=== PATIENT | female | born 1980 | race Two or more races ===

== ENCOUNTER 2020-04-28 16:19 | Emergency (ER) | payer MEDICAID, SELFPAY ==
--- NOTE | ~2020-04-28 | XR_ITS ---
EXAMINATION: XR lumbar spine 2-3V, XR cervical spine 2V, XR thoracic spine 2V CLINICAL INFORMATION: Fall. Pain. COMPARISON: Lumbar spine series 10/23/2017 TECHNIQUE: AP, lateral, swimmer's, and odontoid views of the cervical spine. AP and lateral views of the thoracic spine. AP, lateral, and coned-down L5-S1 spot lateral views of the lumbar spine. FINDINGS: The dens is intact. Lateral masses are normally positioned. Lung apices are clear. Normal prevertebral soft tissues. There is anterior disc calcification at C5-C6. No fracture seen. Normal sagittal alignment of the thoracic spine. Posterior elements are intact. Thoracic vertebral body heights are maintained. Mild anterior osteophytosis. Right upper quadrant cholecystectomy clips. 5 nonrib-bearing lumbar type vertebral bodies are seen. Mild convex left lumbar scoliosis with apex at L3. Grade 1 anterolisthesis of L4 on L5. Lower lumbar facet arthropathy. There is anterior osteophytosis L3-L4 and L4-L5. XR/XR thoracic spine 2V IMPRESSION: No acute osseous abnormality of the cervical, thoracic, or lumbar spine. Degenerative changes as described above.
--- NOTE | ~2020-04-28 | XR_ITS ---
EXAMINATION: XR lumbar spine 2-3V, XR cervical spine 2V, XR thoracic spine 2V CLINICAL INFORMATION: Fall. Pain. COMPARISON: Lumbar spine series 10/23/2017 TECHNIQUE: AP, lateral, swimmer's, and odontoid views of the cervical spine. AP and lateral views of the thoracic spine. AP, lateral, and coned-down L5-S1 spot lateral views of the lumbar spine. FINDINGS: The dens is intact. Lateral masses are normally positioned. Lung apices are clear. Normal prevertebral soft tissues. There is anterior disc calcification at C5-C6. No fracture seen. Normal sagittal alignment of the thoracic spine. Posterior elements are intact. Thoracic vertebral body heights are maintained. Mild anterior osteophytosis. Right upper quadrant cholecystectomy clips. 5 nonrib-bearing lumbar type vertebral bodies are seen. Mild convex left lumbar scoliosis with apex at L3. Grade 1 anterolisthesis of L4 on L5. Lower lumbar facet arthropathy. There is anterior osteophytosis L3-L4 and L4-L5. XR/XR cervical spine 2V IMPRESSION: No acute osseous abnormality of the cervical, thoracic, or lumbar spine. Degenerative changes as described above.
--- NOTE | ~2020-04-28 | XR_ITS ---
EXAMINATION: XR lumbar spine 2-3V, XR cervical spine 2V, XR thoracic spine 2V CLINICAL INFORMATION: Fall. Pain. COMPARISON: Lumbar spine series 10/23/2017 TECHNIQUE: AP, lateral, swimmer's, and odontoid views of the cervical spine. AP and lateral views of the thoracic spine. AP, lateral, and coned-down L5-S1 spot lateral views of the lumbar spine. FINDINGS: The dens is intact. Lateral masses are normally positioned. Lung apices are clear. Normal prevertebral soft tissues. There is anterior disc calcification at C5-C6. No fracture seen. Normal sagittal alignment of the thoracic spine. Posterior elements are intact. Thoracic vertebral body heights are maintained. Mild anterior osteophytosis. Right upper quadrant cholecystectomy clips. 5 nonrib-bearing lumbar type vertebral bodies are seen. Mild convex left lumbar scoliosis with apex at L3. Grade 1 anterolisthesis of L4 on L5. Lower lumbar facet arthropathy. There is anterior osteophytosis L3-L4 and L4-L5. XR/XR lumbar spine 2-3V IMPRESSION: No acute osseous abnormality of the cervical, thoracic, or lumbar spine. Degenerative changes as described above.
[2020-04-28 16:40] VITALS: BP 118/56; PULSE 94; RESP 16; TEMP 36.2; O2SAT 98; BMI 40.7
--- NOTE | 2020-04-28 20:45 | ED.FALL ---
HPI - Fall General Chief Complaint: Fall Stated Complaint: Fall Time Seen by Provider: 04/28/20 19:24 History of Present Illness HPI Narrative: Patient complains of lower back pain as well as upper back pain after a fall down a flight of stairs yesterday shows walking down the stairs slipped backwards and slid down the stairs on her buttocks and back. There is no headache no neck pain no loss of consciousness no numbness no weakness no tingling no changes to bowel or bladder no incontinence Related Data Previous Rx's Medication Instructions Recorded cyclobenzaprine 5 mg PO TID PRN #10 tab 04/28/20 oxycodone 5 mg PO Q6H PRN #14 cap 04/28/20 Allergies Allergy/AdvReac Type Severity Reaction Status Date / Time acetaminophen [From TYLENOL] Allergy Unknown HIVES Unverified 12/04/19 18:16 ketorolac [From TORADOL] Allergy Unknown SWELLING Unverified 12/04/19 18:16 Review of Systems Review of Systems: Positive for back pain Negatives are no dizziness no weakness no confusion no fever no chills no headache no loss of consciousness no vision changes no neck pain no numbness no weakness no paresthesias no incontinence no dysuria no changes to bowel or bladder no chest pain no abdominal pain no shortness of breath no nausea no vomiting Yes all other systems are reviewed and are negative [facility] Past Medical History Attestation statement: The following information was validated with the patient. Source: nursing notes reviewed Medical History (Updated 04/29/20 @ 00:01 by Marlo Matthew) Right bundle branch block Social History Social History Alcohol intake: never Smoked in Last 30 Days: No Use of substances other than those prescribed or required for medical reasons: No Advance Directives: No Advance Directives Information Provided: No Physical Exam Vital Signs: Vital Signs: Last Vital Signs Temp 97.1 F 04/28/20 16:40 Pulse 94 04/28/20 16:40 Resp 16 04/28/20 16:40 BP 118/56 L 04/28/20 16:40 Pulse Ox 98 04/28/20 16:40 Body Mass Index 40.7 General appearance no acute distress, cooperative and O x3 The neck is supple, there is bilateral paraspinal soft tissue tenderness and bilateral trapezius tenderness but no midline tenderness no deformities The head is normocephalic atraumatic The chest there is no chest wall or rib tenderness, breath sounds are clear symmetrical and equal The heart no murmur Abdomen soft nontender The back there was diffuse lower lumbar tenderness including the midline there was also paraspinal soft tissue tenderness in the thoracic area the skin was normal without evidence of bruising, no abrasion or laceration, no CVA tenderness Extremities is full range of motion x4 without tenderness swelling or deformity Skin no rash Neuro motor is 5/5 x4, patient can walk on toes walk on heels and sensation is intact and symmetrical Course Course Course Narrative: S is of lumbar thoracic spine were negative as was cervical spine x-ray, patient's exam did not show any bony point tenderness Patient is ambulatory and is treated with analgesic and muscle relaxer and discharged home Discharge Plan Discharge Clinical Impression: Back pain Patient Disposition: Home, Self-Care Additional Instructions: X-rays of back and neck were negative so no sign of broken bone now Follow with primary doctor for physical therapy if needed Return any concerns Prescriptions: New oxycodone 5 mg capsule 5 mg PO Q6H PRN (Reason: pain) Qty: 14 RF: 0 cyclobenzaprine 5 mg tablet 5 mg PO TID PRN (Reason: muscle spasm) Qty: 10 RF: 0 Stand Alone Forms: Work/School Release Interventions: ED Discharge Assessment Last Done: 04/28/20 21:13 Discharge Date/Time: 04/28/20 21:15
== END 2020-04-28 21:15 | disposition home or self-care (01) ==
PROVIDERS: Emergency Provider Emergency Medicine; PCP Student in an Organized Health Care Education/Training Program
DX: M54.5 Low back pain (principal); M54.6 Pain in thoracic spine
CPT/HCPCS: 72040; 72070; 72100; 99283; 99284

== ENCOUNTER → 2021-09-28 10:08 | Outpatient (BNVA) | payer MEDICAID, SELFPAY | PROVIDERS: PCP Student in an Organized Health Care Education/Training Program; Visit Provider Orthopaedic Surgery | DX: R20.0 Anesthesia of skin (principal); R20.2 Paresthesia of skin; R25.2 Cramp and spasm; M79.644 Pain in right finger(s) | CPT/HCPCS: 99202 ==

== ENCOUNTER 2021-12-22 09:52 | Outpatient (REF) | payer MEDICAID, SELFPAY ==
--- NOTE | 2021-12-22 10:30 | EMG_ITS ---
Right median and ulnar motor and sensory studies were performed. Right radial sensory study was performed and paraspinal muscles were tested. IMPRESSION: This is an unremarkable study with no evidence of median or ulnar neuropathy or radiculopathy. MD ADAM Garnica/AVEL / [phone]
== END 2021-12-22 09:53 | disposition home or self-care (01) ==
LOC: HO.NEURO 09:52
PROVIDERS: PCP Family Medicine; Visit Provider Orthopaedic Surgery
DX: R20.0 Anesthesia of skin (principal); M79.641 Pain in right hand; M79.642 Pain in left hand
CPT/HCPCS: 95886; 95909

== ENCOUNTER 2022-01-02 16:12 | Outpatient (REF) | payer MEDICAID, SELFPAY ==
[2022-01-02 17:16] LABS: Lipase 17 U/L (8-78)
[2022-01-02 17:36] LABS: TSH reflex Free T4 1.41 uIU/mL (0.32-4.0)
[2022-01-02 17:57] LABS: Folate 6.5 ng/mL (> or = 4.0); Vitamin B12 < 146 pg/mL (200-900)
[2022-01-04 11:47] LABS: Transglutaminase Ab IgG <1.0 U/mL; Transglutaminase IgA <1.0 U/mL
[2022-01-09 16:07] LABS: Vitamin D 25-OH, D2 11 ng/mL; Vitamin D 25-OH, D3 7 ng/mL; Vitamin D 25-OH, Total 18 ng/mL (30-100)
== END 2022-01-02 16:13 | disposition home or self-care (01) ==
LOC: HO.LAB 16:12
PROVIDERS: PCP Family Medicine; Visit Provider Nurse Practitioner Family
DX: R10.9 Unspecified abdominal pain (principal); R19.7 Diarrhea, unspecified; K59.00 Constipation, unspecified; E55.9 Vitamin D deficiency, unspecified
CPT/HCPCS: 36415; 82306; 82607; 82746; 83690; 84443; 86364; 99202

== ENCOUNTER 2022-01-03 12:43 | Outpatient (REF) | payer MEDICAID, SELFPAY ==
[2022-01-12 23:03] LABS: Pancreatic Elastase-1 171 mcg/g
== END 2022-01-03 12:44 | disposition home or self-care (01) ==
LOC: HO.LNP 12:43
PROVIDERS: Visit Provider Nurse Practitioner Family
DX: R10.9 Unspecified abdominal pain (principal); K21.9 Gastro-esophageal reflux disease without esophagitis
CPT/HCPCS: 82656; 87338

== ENCOUNTER → 2022-02-06 13:26 | Outpatient (BNVA) | payer MEDICAID, SELFPAY | PROVIDERS: PCP Family Medicine; Visit Provider Nurse Practitioner Family | DX: K86.89 Other specified diseases of pancreas (principal); R14.0 Abdominal distension (gaseous); K21.9 Gastro-esophageal reflux disease without esophagitis; K58.1 Irritable bowel syndrome with constipation | CPT/HCPCS: 99212 ==

== ENCOUNTER 2022-09-06 09:55 | Outpatient (REF) | payer MEDICAID, SELFPAY ==
--- NOTE | ~2022-09-06 | MM_ITS ---
EXAMINATION: MM SCREENING DIGITAL BREAST TOMOSYNTHESIS, BILATERAL CLINICAL INFORMATION: Screening. Asymptomatic. Age 41. The lifetime risk of breast cancer based on the Tyrer-Cuzick Model is 9%. COMPARISON: None. TECHNIQUE: Digital breast tomosynthesis is performed in both the craniocaudal and mediolateral oblique views along with computer-aided detection (CAD). Synthesized 2D images are generated from the tomosynthesis. FINDINGS: There are scattered areas of fibroglandular density (ACR BI-RADS breast composition Category b). There are no significant masses, abnormal calcifications, or other abnormalities. No architectural abnormality. There are scattered incidental benign small round and predominantly dermal calcifications. The axilla and skin contours are unremarkable. MM/MM tomosynthesis screening BI IMPRESSION: No mammographic evidence of malignancy. ASSESSMENT: BI-RADS 2: Benign RECOMMENDATION: Routine annual mammography screening. This patient's information was entered into a reminder system with a target due date for their next mammogram.
== END 2022-09-06 09:56 | disposition home or self-care (01) ==
LOC: HO.MAMMO 09:55
PROVIDERS: Visit Provider Family Medicine
DX: Z12.31 Encounter for screening mammogram for malignant neoplasm of breast (principal)
CPT/HCPCS: 77063; 77067

== ENCOUNTER 2022-10-30 10:00 | Outpatient (REF) | payer MEDICAID, SELFPAY ==
[2022-10-30 14:27] LABS: MANUAL DIFF FLAG NO
[2022-10-30 14:32] LABS: Basophils Percent Auto 0.5 % (0-2); Eosinophils Absolute Auto 0.1 X10*3/uL (0.0-0.4); Eosinophils Percent Auto 1.7 % (0-4); Hematocrit 35.1 % (37.0-47.0); Hemoglobin 11.2 g/dl (12.0-16.0); Imm Gran Abs Auto 0.03 X10*3/uL (0.00-0.03); Imm Gran Pct Auto 0.4 % (0.0-0.4); Lymphocytes Absolute Auto 1.8 X10*3/uL (1.2-4.9); Lymphocytes Percent Auto 22.2 % (20-40); Mean Corpuscular HGB Conc 31.9 g/dl (31.0-35.0); Mean Corpuscular Hemoglobin 29.7 pg (27.0-33.0); Mean Corpuscular Volume 93.1 fL (80.0-98.0); Mean Platelet Volume 10.6 fL (9.4-12.3); Monocytes Absolute Auto 0.5 X10*3/uL (0.1-1.2); Monocytes Percent Auto 5.5 % (2-11); Neutrophils Absolute Auto 5.7 x10*3/uL (2.0-8.3); Neutrophils Percent Auto 69.7 % (45-73); Platelet Count 279 X10*3/uL (160-400); Red Blood Count 3.77 X10*6/uL (4.20-5.50); Red Cell Distribution Width 14.3 % (11.0-16.0); White Blood Count 8.2 X10*3/uL (4.8-10.8)
[2022-10-30 19:01] LABS: CT PCR NOT DETECTED (Not Detect.); NG PCR NOT DETECTED (Not Detect.)
[2022-10-31 01:56] LABS: TSH reflex Free T4 1.69 uIU/mL (0.32-4.0)
== END 2022-10-30 10:01 | disposition home or self-care (01) ==
LOC: HO.CHCLDS 10:00
PROVIDERS: Visit Provider Family Medicine
DX: N93.9 Abnormal uterine and vaginal bleeding, unspecified (principal)
CPT/HCPCS: 0353U; 84443; 85025

== ENCOUNTER 2022-11-02 09:57 | Outpatient (REF) | payer MEDICAID, SELFPAY ==
[2022-11-02 16:17] LABS: CT PCR NOT DETECTED (Not Detect.); NG PCR NOT DETECTED (Not Detect.)
[2022-11-03 15:16] LABS: BV Int Neg Control Negative (Negative); BV Int Pos Control Positive (Positive)
[2022-11-06 20:34] LABS: HPV mRNA E6/E7 rflx Not Detected (Not Detected)
== END 2022-11-02 09:58 | disposition home or self-care (01) ==
LOC: HO.LNP 09:57
PROVIDERS: PCP Family Medicine; Visit Provider Advanced Practice Midwife
DX: N92.0 Excessive and frequent menstruation with regular cycle (principal); N93.9 Abnormal uterine and vaginal bleeding, unspecified; Z12.4 Encounter for screening for malignant neoplasm of cervix; Z11.3 Encounter for screening for infections with a predominantly sexual mode of transmission; Z12.39 Encounter for other screening for malignant neoplasm of breast; Z98.891 History of uterine scar from previous surgery; Z01.419 Encounter for gynecological examination (general) (routine) without abnormal findings; Z32.02 Encounter for pregnancy test, result negative
CPT/HCPCS: 0353U; 58100; 87480; 87510; 87624; 87660; 88142; 88305

== ENCOUNTER 2022-11-02 09:57 | Outpatient (AMB) | payer MEDICAID, SELFPAY ==
[2022-11-02 09:58] VITALS: BP 128/84; BMI 44.5
--- NOTE | 2022-11-02 09:58 | MHC.OFFVIS ---
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 Intake Note: Pt c/o: states started menses 2 weeks ago and has been bleeding very heavy since she called her PCP and medroxyprogestrone prescribed which she started 2days ago Allergies acetaminophen [From TYLENOL] Allergy (Unknown, Verified 11/02/22 09:59) HIVES ketorolac [From TORADOL] Allergy (Unknown, Verified 11/02/22 09:59) SWELLING Medication List - Last Reviewed 11/02/22 by Leidy Rowan, DAPHNIE cholecalciferol (vitamin D3) 50 mcg PO DAILY cyanocobalamin (vitamin B-12) 1,000 mcg PO DAILY cyclobenzaprine 5 mg PO TID PRN famotidine 40 mg PO BEDTIME bevehf-ggqeqmdu-[id number] 6,000-19,000 -30,000 unit (Creon) 1 cap PO .qid ac medroxyprogesterone 20 mg PO TID methylcellulose (laxative) (Citrucel) 500 mg PO DAILY sennosides (Natural Senna Laxative) 17.2 mg (2 x 8.6 mg) PO BEDTIME Is last menstrual period known: Yes (2 weeks with heavy bleeding ) Last menstrual period: 10/19/22 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 She was referred in June for a ob gyn physician assistant annual exam she says she always has had irregular periods all her life since she was 10 years old she normally gets 1 fairly regular though the most she would might be is a couple of weeks late but this time she was 2 months late and so when she reached that 0.2 weeks ago she thought that was connected to being on a new diet medication that her doctor had given her that she been taking for a couple of months so she stopped the medication could she thought that was related. She wanted to try to lose weight naturally before she consider surgery. She had her tubes tied years ago in [place] after the of her 2nd child. She also has not had sex with her partner for about a year or so. She also has a history of right bundle bad branch block and she was on medication for it when she was younger but it made her heart race too much shows she stopped it. She has not seen anybody for that in a long time. She moved from [place] 8 years ago she also has seen other specialists for other health issues. She does not know when she last had a Pap smear and at 1st she said maybe a year ago but she was not sure and she could not tell me where. She said she went to her doctor 3 days ago and her doctor had her do blood tests and gave her medication to stop with the bleeding and it is working she started it yesterday its medroxyprogesterone 20 mg tablets that the prescription says to take 3 times a day for 7 days. Her H&H is 11 and 33. She has not had an ultrasound yet. She had her mammogram done 4 months ago. [facility] Medical History (Updated 11/02/22 @ 10:51 by Maricarmen Muro CNM) Pancreatic insufficiency Right bundle branch block Surgical History (Updated 11/02/22 @ 10:10 by Leidy Rowan [facility]) History of section History of cholecystectomy Social History Household Members: Family Alcohol intake: never Patient Tobacco Use Status: Never used Tobacco Tobacco use type: Cigarette e-Cigarette/Vaping Use: Former Use Female Reproductive History Menstrual Date of last menstrual period: 10/19/22 Total pregnancies: 2 Number of Living Children: 2 Date of last pap smear: 10/24/16 ([facility]) History of abnormal pap smear: No Physical Exam Const General: healthy appearing, comfortable, no acute distress, well developed and alert Nutritional Appearance: average body habitus and obese Orientation/consciousness: patient oriented x3 Limitations: no limitations HEENT Head: Yes normocephalic Neck Neck: Yes normal visual inspection Chest Chest palpation & inspection: normal inspection of the chest Breast/axilla inspection: normal inspection of the breasts and normal inspection of the axillae Breast/axilla palpation: normal palpation of the breasts and normal palpation of the axillae Resp Effort & Inspection: normal respiratory effort GI Inspection: Yes normal to inspection, No Abdominal wall edema and No distended Palpation (GI): Soft to palpation and nontender Other: Bimanual done 1st to aid in placement of speculum. Bimanual done using water for lubrication. Cervix nulliparous nontender uterus does feel enlarged. See procedure for detail of endometrial biopsy Pap smear cultures were done as well as the endometrial biopsy adequate sampling appears to have been received using Pipelle. Uterus sounded to 7.5 cm, General: Yes bladder normal to palpation External Female Exam: normal external appearance and normal appearance of the urethra Speculum Exam - Vagina: normal appearance of the vagina, normal palpation and normal vaginal discharge Speculum Exam - Cervix: normal appearance of the cervix, normal palpation and nontender Bimanual exam- vagina & uterus: normal bimanual exam, normal palpation, uterine size normal, bladder normal to palpation, consistency normal, normal palpation, uterine mobility normal, uterine shape normal, No Cervical tenderness present, non-tender and no cervical motion tenderness Bimanual Exam- Adnexa, other: normal adnexae, no masses, normal and No adnexal tenderness Neuro General: patient oriented x3 Office Procedures Endometrial Biopsy Details: Patient is here for an endometrial biopsy. I explained the procedure and what the goal of the obtaining the sample is, and why we need need to do it today. Patient signed consent form, and appropriate testing was done beforehand. test is negative Patient was placed in recumbent position. Speculum was placed to visualize cervix the cervix was cleansed with Betadine. A tenaculum was gently placed to straighten the axis. The uterus was sounded to 7.5 cm. The endometrial biopsy Pipelle was inserted gently, and withdrawn to obtain sampling of the endometrial tissue for 2 passes. The tenaculum was removed and the cervix was swabbed gently as any bleeding subsided. the patient rested for a while as she felt a little bit dizzy and had a headache briefly and then sat up, after removal of the speculum. She is to return for discussion of the results and review of any other testing. [id number] Biopsy Results Reviewed Results Reviewed: Name: Cristiane Silva Age/Sex: 42/F : 1980 Unit#: [id number] Attend Dr: Susi Bolton MD Re10/30/22 Status: DEP REF Location: [facility] Disch: SPEC : [id number] BRITTANEY: 10/30/22-1004 STATUS: COMP REQ : [id number] RECD: 10/30/22-[address]: Susi Bolton MD COMP: 10/30/22 ENTERED: 10/30/[address] [facility] [address]: ORDERED: CBC Auto Diff Test Result Flag Reference Site WBC 8.2 4.8-10.8 X10*3/uL RBC 3.77 L 4.20-5.50 X10*6/uL HGB 11.2 L 12.0-16.0 g/dl HCT 35.1 L 37.0-47.0 % MCV 93.1 80.0-98.0 fL MCH 29.7 27.0-33.0 pg MCHC 31.9 31.0-35.0 g/dl RDW 14.3 11.0-16.0 % PLT 279 160-400 X10*3/uL MPV 10.6 9.4-12.3 fL Neut Pct Auto 69.7 45-73 % ImGran Pct Auto 0.4 0.0-0.4 % Lymp Pct Auto 22.2 20-40 % Bourbon Pct Auto 5.5 2-11 % Eos Pct Auto 1.7 0-4 % Baso Pct Auto 0.5 0-2 % NRBC Pct Auto 0.0 0.0-0.2 /100WBC ANC Neut Abs # 5.7 2.0-8.3 x10*3/uL ImGran Abs Auto 0.03 0.00-0.03 X10*3/uL Lymph Abs Auto 1.8 1.2-4.9 X10*3/uL Bourbon Abs Auto 0.5 0.1-1.2 X10*3/uL Eos Abs Auto 0.1 0.0-0.4 X10*3/uL Baso Abs Auto 0.0 0.0-0.2 X10*3/uL NRBC Abs Auto 0.000 0.0-0.012 X10*3/uL Name: Cristiane Silva Age/Sex: 42/F : 1980 Unit#: [id number] Attend Dr: Susi Bolton MD Re10/30/22 Status: DEP REF Location: [facility] Disch: SPEC : [id number] BRITTANEY: 10/30/22 STATUS: COMP REQ : [id number] RECD: 10/30/22-[address]: Susi Bolton MD COMP: 10/31/22-0156 ENTERED: 10/30/22-[address] [facility] [address]: ORDERED: TSH Rflx Test Result Flag Reference Site TSH 1.69 0.32-4.0 uIU/mL atient: Cristiane Silva MR#: [id number] : 1980 Acct:[id number] Age/Sex: 41 / F ADM Date: 09/06/22 Loc: HO.MAMMO Attending Dr: Susi Bolton MD Ordering Physician: Susi Bolton MD Results: 2Benign Findings Date of Service: 09/06/22 Follow Up: 1 Year From Original Mammogram Procedure(s): MM tomosynthesis screening BI Accession Number(s): [id number] cc: Susi Bolton MD~ EXAMINATION: MM SCREENING DIGITAL BREAST TOMOSYNTHESIS, BILATERAL CLINICAL INFORMATION:? Screening. Asymptomatic. Age 41. The lifetime risk of breast cancer based on the Tyrer-Cuzick Model is 9%.? COMPARISON: None. TECHNIQUE: Digital breast tomosynthesis is performed in both the craniocaudal and mediolateral oblique views along with computer-aided detection (CAD). Synthesized 2D images are generated from the tomosynthesis. FINDINGS: There are scattered areas of fibroglandular density (ACR BI-RADS breast composition Category b). There are no significant masses, abnormal calcifications, or other abnormalities. ? No architectural abnormality. There are scattered incidental benign small round and predominantly dermal calcifications. The axilla and skin contours are unremarkable.? MM/MM tomosynthesis screening BI IMPRESSION: No mammographic evidence of malignancy. ? ASSESSMENT:? BI-RADS 2: Benign ? RECOMMENDATION: Routine annual mammography screening. ? This patient's information was entered into a reminder system with a target due date for their next mammogram. Assessment & Plan Assessment & Plan (1) Abnormal uterine bleeding (AUB): Code(s): N93.9 - Abnormal uterine and vaginal bleeding, unspecified (2) Cervical cancer screening: Code(s): Z12.4 - Encounter for screening for malignant neoplasm of cervix (3) History of section: Comment: x2 Code(s): Z98.891 - History of uterine scar from previous surgery (4) Screen for sexually transmitted diseases: Code(s): Z11.3 - Encounter for screening for infections with a predominantly sexual mode of transmission (5) Breast cancer screening: Code(s): Z12.39 - Encounter for other screening for malignant neoplasm of breast (6) Menorrhagia: Comment: Menses 2 months late started 8 3 treated at home [facility] with medroxyprogesterone 20 mg t.i.d. x7 days will lower to 10 mg q.day and workup and Rx probably with Mirena. Code(s): N92.0 - Excessive and frequent menstruation with regular cycle Plan Discussed with the patient her history of abnormal irregular periods throughout her life though she says this is the longest she had not gotten a period and the heaviest she bled. Discussed that at least she is not anemic at this point but it is important to get her bleeding pattern under control so that she does not hemorrhage and become anemic. Discussed the important need for evaluation of the lining of her uterus to be sure that she does not have any abnormal or cancerous cells growing and she needs a pelvic ultrasound to evaluate for fibroids or ovarian cysts or other pathology or thickened endometrial lining. I did review her medication dose with Dr. Reeves as it was a higher dose than I have seen used of medroxyprogesterone and the suggestion was to lower the dose from 20 mg t.i.d. x7 days which is essence is 60 mg a day down to 10 mg a day and continue it for 30 days while awaiting the full workup. She already has had a CBC and a TSH I am ordering a pelvic ultrasound and we pursed did proceed with the endometrial biopsy today patient did find it the procedure painful she has had 2 children by primary and then repeat ;,( both children were breech.) Discussed in quite deep detail the challenges of her long history of irregular bleeding, late periods and this result in bleeding and the the many things needed to make sure that we address the bleeding as well as investigate whether not she has any abnormalities ultrasound is being ordered medication has been lowered endometrial biopsy has been done after discussion of the risks and also discussed the likely use of a Mirena IU S to help control the bleeding over time. We will see her in 1 week to review the results if it is possible to have her ultrasound within that week that would be great but I do not want her to wait for the results of the endometrial biopsy the plan is to place a Mirena. Orders: Orders Bacterial Vaginosis Panel Today Z01.419 - Encounter for gynecological examination (general) (routine) without abnormal findings CT NG by PCR Today Z01.419 - Encounter for gynecological examination (general) (routine) without abnormal findings US pelvic and transvaginal Today N92.0 - Excessive and frequent menstruation with regular cycle, N93.9 - Abnormal uterine and vaginal bleeding, unspecified AMB HCG Urine Test Today Z32.02 - Encounter for test, result negative Pap Smear Today Z11.3 - Encounter for screening for infections with a predominantly sexual mode of transmission Surgical Today N92.0 - Excessive and frequent menstruation with regular cycle AMB Endometrial Biopsy Today N92.0 - Excessive and frequent menstruation with regular cycle, N93.9 - Abnormal uterine and vaginal bleeding, unspecified, Z11.3 - Encounter for screening for infections with a predominantly sexual mode of transmission, Z12.39 - Encounter for other screening for malignant neoplasm of breast, Z12.4 - Encounter for screening for malignant neoplasm of cervix, Z98.891 - History of uterine scar from previous surgery Medications: New medroxyprogesterone (Provera) Stop taking 20 mg t.i.d.; and start taking 10 mg once a day for 30 days. 10 mg PO DAILY 30 tabs 0RF Coding Level of Care Code New Pt Prev Care 40-64y(33028) Diagnoses Abnormal uterine bleeding (AUB) N93.9 Cervical cancer screening Z12.4 History of section Z98.891 Screen for sexually transmitted diseases Z11.3 Breast cancer screening Z12.39 Menorrhagia N92.0 CPT Codes Endometrial Biopsy - CPT: 75755-[id number] Biopsy ([id number])
== END 2022-11-02 11:38 | disposition home or self-care (01) ==
LOC: HO.HWS 09:57
PROVIDERS: PCP Family Medicine; Visit Provider Advanced Practice Midwife
DX: N93.9 Abnormal uterine and vaginal bleeding, unspecified (principal)
CPT/HCPCS: 58100

== ENCOUNTER 2022-11-09 11:03 | Outpatient (REF) | payer MEDICAID, SELFPAY ==
--- NOTE | ~2022-11-09 | US_ITS ---
EXAMINATION: US PELVIS CLINICAL INFORMATION: Excessive and frequent menstruation with irregular cycle. Heavy bleeding for last 2-3 weeks. COMPARISON: None available. TECHNIQUE: Ultrasound of the pelvis is performed using both transabdominal and transvaginal transducers along with Doppler. Transvaginal imaging is performed due to inadequate visualization transabdominally. FINDINGS: Uterus: The uterus is anteverted, anteflexed and measures 9.9 x 4.7 x 4.7 cm The double wall endometrial thickness is 1.8 cm. The uterus is smooth in contour and has normal myometrial echogenicity. No visible fibroid. There are several nabothian cysts in the cervix Adnexa: Both ovaries are visualized. There is normal color flow to the adnexa. There is no ovarian torsion. There is no pelvic ascites or fluid collection. Right ovary measures 2.5 x 1.7 x 1.7 cm and volume 3.8 mL. The ovary appears unremarkable. Left ovary measures 3.0 x 2.0 1.9 cm and volume 6.0 mL the left ovary appears unremarkable There is small amount of free fluid in the cul-de-sac. US/US pelvic and transvaginal IMPRESSION: 1. Small nabothian cysts in the cervix. 2. The uterus and ovaries are unremarkable. 3. Small amount of free fluid in the cul-de-sac.
== END 2022-11-09 11:04 | disposition home or self-care (01) ==
LOC: HO.US 11:03
PROVIDERS: Absent Provider Family Medicine; PCP Family Medicine; Visit Provider Advanced Practice Midwife
DX: N93.9 Abnormal uterine and vaginal bleeding, unspecified (principal); N92.0 Excessive and frequent menstruation with regular cycle
CPT/HCPCS: 76830; 76856

== ENCOUNTER 2022-11-22 09:59 | Outpatient (AMB) | payer MEDICAID, SELFPAY ==
--- NOTE | 2022-11-22 10:01 | A.OFFVIS_ITS ---
Intake Vital Signs 11/22/22 10:02 Height 5 ft 3 in Weight 250 lb BMI 44.3 BP 120/84 Intake Visit Reasons: Ultrasound follow up/EMB results Allergies acetaminophen [From TYLENOL] Allergy (Unknown, Verified 11/22/22 10:02) HIVES ketorolac [From TORADOL] Allergy (Unknown, Verified 11/22/22 10:02) SWELLING Medication List - Last Reconciled 11/22/22 by Maricarmen Muro CNM cholecalciferol (vitamin D3) 50 mcg PO DAILY cyanocobalamin (vitamin B-12) 1,000 mcg PO DAILY cyclobenzaprine 5 mg PO TID PRN famotidine 40 mg PO BEDTIME khfkzj-cjxbpjqj-[id number] 6,000-19,000 -30,000 unit (Creon) 1 cap PO .qid ac medroxyprogesterone (Provera) 10 mg PO DAILY methylcellulose (laxative) (Citrucel) 500 mg PO DAILY sennosides (Natural Senna Laxative) 17.2 mg (2 x 8.6 mg) PO BEDTIME Is last menstrual period known: Yes Last menstrual period: 10/19/22 HPI Ultrasound follow up/EMB results HPI Details Patient is here to discuss her endometrial biopsy and ultrasound results. Patient was referred here from the [facility] for dysfunctional uterine bleeding that started October 19 she was given 20 mg of Provera to take 3 times a day and we lowered the dose to 10 mg q.day the day I did the endometrial biopsy. I am reviewing her history of bleeding. She says she has still been bleeding on and off but mostly it is when she sits on the toilet to pee or poop and pushes down and she feels a whole lot of blood coming out she has a pad on now but she says it is dry because she just changed it before she left the house she has been here for least 45 minutes. Her CBC was within normal limits as was her TSH. Her endometrial biopsy results revealed no atypia or malignancy. Her Pap smear was completely negative and normal as well. Her U ultrasound was normal as well. Patient tells me she wants to have some sort of surgery that would fix her problem and she is not interested in a Mirena that I have reviewed with her and I reviewed again with her today. Additionally I discussed the option of taking cycly Provera every month for 10 days, but she is not interested in that either She also brought up a different problem in that when she wipes or cleaning herself either in the shower or on the toilet and she wipes hard coming up past her urethra and clitoris she feels an electric seeing kind of uncomfortable feeling she described these anatomically in describing what she was doing cleaning herself. It appears that she may be in a vertically compressing on these delicate tissue and she says that sometimes she even feels it when she is driving and she has to tilt herself in a certain direction to avoid pressure on that area. I did discuss with her the challenges of changing anatomy from the challenges of excessive adipose tissue changing anatomical relationships in the body and altering sensations and discussed the challenge and benefits of weight loss and also Kegel exercises to help improve pelvic muscles tone and structure and anatomical relationships this is a separate issue but I did give her instructions on Kegel's as well. The patient to decided that she does not want to move forth with the plan as of yet but she wants to discuss options further because she is interested in a surgical fix. I did discuss with her that I believed a medication that could help her would be the use of the levonorgestrel administered either via the Mirena IU S or cyclic Provera as the secondary option. She is not interested going forth yet her next visit is going to be then with Dr. Reeves to discuss these options further I told her I would be happy to insert Mirena if that is the choice. [facility] Medical History (Updated 11/21/22 @ 11:26 by Maricarmen Muro CNM) Pancreatic insufficiency Right bundle branch block Surgical History History of section History of cholecystectomy Social History Household Members: Family Alcohol intake: never Patient Tobacco Use Status: Never used Tobacco Tobacco use type: Cigarette e-Cigarette/Vaping Use: Former Use Female Reproductive History Menstrual Date of last menstrual period: 10/19/22 Total pregnancies: 2 Full term: 2 Number of Living Children: 2 Date of last pap smear: 11/02/22 (neg pap and hpv) Date of Mammogram: 09/06/22 (Birad 2) Physical Exam Vital Signs: Last Vital Signs BP 120/84 11/22/22 10:02 BMI result Body Mass Index 44.3 Results Reviewed Results Reviewed: Name:?Cristiane Silva Age/Sex: 42/F Attending: Maricarmen Muro CNM : 1980 Submitted by: Maricarmen Muro CNM Copies to: Susi Bolton MD MR #: [id number] ? Status: DEP REF Collected: 11/02/22 Location: [facility] Received: 11/03/22 Interpretation Satisfactory for evaluation. Coccobacilli consistent with shift in vaginal carlota. Negative for intraepithelial lesion or malignancy. ?HPV mRNA E6/E7:? NOT DETECTED This assay detects E6/E7 viral messenger RNA (mRNA) from 14 high-risk HPV types (16, 18, 31, 33, 35, 39, 45, 51, 52, 56, 58, 59, 66, 68) HPV testing performed by [employer], [place], [place].? See reference laboratory pion of the EMR for entire report. Clinical Information LMP:10/19/22 Previous PAP test:10/24/16, WNL Material Received ThinPrep-Cervical Copies To ?? Maricarmen Muro CNM ?? [address] ?? [place] ?? [phone] ?? Susi Bolton MD ?? [address] ?? [place] ?? [phone] Electronically Signed By: SIOMARA Díaz (ASCP) ? 11/21/22 0941 The Pap Test is a screening procedure with the inherent possibility of both false negative and false positive results.? Results should be interpreted in the context of historic and current clinical findings.? Reliability of the Pap Test i [address] [address] Ultrasound Report Signed Patient: Cristiane Silva MR#: [id number] : 1980 Acct:[id number] Age/Sex: 42 / F ADM Date: 11/09/22 Loc: .[place] Attending Dr: Maricarmen Muro CNM Ordering Physician: Maricarmen Muro CNM Date of Service: 11/09/22 Procedure(s): US pelvic and transvaginal Accession Number(s): [id number] cc: Maricarmen Muro CNM~ EXAMINATION:? US PELVIS CLINICAL INFORMATION:? Excessive and frequent menstruation with irregular cycle. Heavy bleeding for last 2-3 weeks. COMPARISON: None available. TECHNIQUE: Ultrasound of the pelvis is performed using both transabdominal and transvaginal transducers along with Doppler. Transvaginal imaging is performed due to inadequate visualization transabdominally. FINDINGS: Uterus: The uterus is anteverted, anteflexed and measures 9.9 x 4.7 x 4.7 cm The double wall endometrial thickness is 1.8 cm.? The uterus is smooth in contour and has normal myometrial echogenicity. ? No visible fibroid. There are several nabothian cysts in the cervix Adnexa: Both ovaries are visualized. There is normal color flow to the adnexa. There is no ovarian torsion.? There is no pelvic ascites or fluid collection. Right ovary measures 2.5 x 1.7 x 1.7 cm and volume 3.8 mL. The ovary appears unremarkable. Left ovary measures 3.0 x 2.0 1.9 cm and volume 6.0 mL the left ovary appears unremarkable There is small amount of free fluid in the cul-de-sac. US/US pelvic and transvaginal IMPRESSION: 1.? Small nabothian cysts in the cervix. 2.? The uterus and ovaries are unremarkable. 3.? Small amount of free fluid in the cul-de-sac. ? Dictated By: Trevor Lowery MD Signed By: <Electronically signed by Trevor Lowery MD in OV> 11/09/22 1234 DD/ 1145 TD/TT:? Door Hanger: MSM Name:?Cristiane Silva Age/Sex: 42/F Attending: Maricarmen Muro CNM : 1980 Submitted by: Maricarmen Muro CNM Copies to: Susi Bolton MD MR #: [id number] ? Status: DEP REF Collected: 11/02/22 Location: [facility] Received: 11/02/22 Diagnosis Endometrium, biopsy:? Early secretory endometrium with stromal and glandular breakdown; negative for atypia, hyperplasia or malignancy. Clinical History Menorrhagia Microscopic Description Microscopic sections reviewed. Material Received Endometrial bx Gross Description Received in formalin labeled ?endometrial bx? is a 1.5 x 1.3 x 0.45 cm aggregate of multiple irregular and tubular cast fragments of rodriguez tissue and red-maroon blood.? The specimen is submitted in toto in a single cassette labeled A.? CEDS Copies To ?? Maricarmen Muro CNM ?? [address] ?? [place] [address] ?? [phone] ?? Susi Bolton MD ?? [address] [facility] [facility] ?? [place] ?? [phone] NOTE:? Unless otherwise stated, all tissue is formalin-fixed and paraffin- embedded.? Some or all of the immunohistochemical tests reported herein may have been developed and their performance characteristics determined by [facility].? They have not been cleared or approved by the U.S. Food and Drug Administration (FDA).? However, the FDA has determined that such clearance or approval is not necessary.? This laboratory is certified under the Clinical Laboratory Improvement Amendments of 1988 (CLIA) as qualified to perform high complexity clinical laboratory testing. Electronically Signed By: Jordana Lawler MD ? 11/03/22 6275 Assessment & Plan Assessment & Plan (1) Menorrhagia: Comment: Menses 2 months late started 8 3 treated at home [facility] with medroxyprogesterone 20 mg t.i.d. x7 days will lower to 10 mg q.day and workup and Rx probably with Mirena. Code(s): N92.0 - Excessive and frequent menstruation with regular cycle (2) Cervical cancer screening: Comment: 11/02/2022 Pap is negative with negative HPV. Code(s): Z12.4 - Encounter for screening for malignant neoplasm of cervix (3) Abnormal uterine bleeding (AUB): Code(s): N93.9 - Abnormal uterine and vaginal bleeding, unspecified Plan Patient is here to discuss her endometrial biopsy and ultrasound results. Patient was referred here from the [facility] for dysfunctional uterine bleeding that started October 19 she was given 20 mg of Provera to take 3 times a day and we lowered the dose to 10 mg q.day the day I did the endometrial biopsy. I am reviewing her history of bleeding. She says she has still been bleeding on and off but mostly it is when she sits on the toilet to pee or poop and pushes down and she feels a whole lot of blood coming out she has a pad on now but she says it is dry because she just changed it before she left the house she has been here for least 45 minutes. Her CBC was within normal limits as was her TSH. Her endometrial biopsy results revealed no atypia or malignancy. Her Pap smear was completely negative and normal as well. Her U ultrasound was normal as well. Patient tells me she wants to have some sort of surgery that would fix her problem and she is not interested in a Mirena that I have reviewed with her and I reviewed again with her today. Additionally I discussed the option of taking cycly Provera every month for 10 days, but she is not interested in that either She also brought up a different problem in that when she wipes or cleaning herself either in the shower or on the toilet and she wipes hard coming up past her urethra and clitoris she feels an electric seeing kind of uncomfortable feeling she described these anatomically in describing what she was doing cleaning herself. It appears that she may be in a vertically compressing on these delicate tissue and she says that sometimes she even feels it when she is driving and she has to tilt herself in a certain direction to avoid pressure on that area. I did discuss with her the challenges of changing anatomy from the challenges of excessive adipose tissue changing anatomical relationships in the body and altering sensations and discussed the challenge and benefits of weight loss and also Kegel exercises to help improve pelvic muscles tone and structure and anatomical relationships this is a separate issue but I did give her instructions on Kegel's as well. The patient to decided that she does not want to move forth with the plan as of yet but she wants to discuss options further because she is interested in a surgical fix. I did discuss with her that I believed a medication that could help her would be the use of the levonorgestrel administered either via the Mirena IU S or cyclic Provera as the secondary option. She is not interested going forth yet her next visit is going to be then with Dr. Reeves to discuss these options further I told her I would be happy to insert Mirena if that is the choice. Coding Level of Care Code Est Pt Level 3 (45754) Diagnoses Menorrhagia N92.0 Cervical cancer screening Z12.4 Abnormal uterine bleeding (AUB) N93.9
[2022-11-22 10:02] VITALS: BP 120/84; BMI 44.3
== END 2022-11-22 11:06 | disposition home or self-care (01) ==
PROVIDERS: PCP Family Medicine; Visit Provider Advanced Practice Midwife
DX: N92.0 Excessive and frequent menstruation with regular cycle (principal); Z12.4 Encounter for screening for malignant neoplasm of cervix; N93.9 Abnormal uterine and vaginal bleeding, unspecified
CPT/HCPCS: 99213

== ENCOUNTER → 2022-11-22 09:59 | Outpatient (BNVA) | payer MEDICAID, SELFPAY | PROVIDERS: PCP Family Medicine; Visit Provider Advanced Practice Midwife | DX: Z12.4 Encounter for screening for malignant neoplasm of cervix (principal); N93.9 Abnormal uterine and vaginal bleeding, unspecified; N92.0 Excessive and frequent menstruation with regular cycle | CPT/HCPCS: 99212 ==

== ENCOUNTER 2022-11-30 07:35 | Emergency (ER) | payer MEDICAID, SELFPAY ==
[2022-11-30] VITALS (7 sets, daily range): BP systolic 102–156; BP diastolic 54–72; PULSE 74–99; RESP 18–19; TEMP 36.6–36.8; O2SAT 94–100; BMI 45.0
--- NOTE | ~2022-11-30 | US_ITS ---
EXAMINATION: US PELVIS COMPLETE US PELVIS ENDOVAGINAL CLINICAL INFORMATION: Vaginal bleeding evaluate for torsion COMPARISON: CT abdomen from 11/30/2022, ultrasound pelvis from 11/09/2022 TECHNIQUE: Transabdominal and transvaginal images of the pelvis were obtained. FINDINGS: UTERUS: Anteverted. Normal size and contour, measuring 10.6 x 4.5 x 6.4 cm (cervix to fundus x AP x transverse). Uniform, homogeneous endometrium measures 1.3 cm in width. Suggestion of thickening along the lower uterine segment with echogenic material possibly representing old blood products. Complex and simple appearing nabothian cysts are visualized. Cyst within scar visualized. RIGHT OVARY: Right ovary not well visualized. LEFT OVARY: Normal size and echogenicity measuring 3.1 x 2.7 x 2.7 cm, volume 12.1 mL. Vascular flow noted in the left ovary. FREE FLUID: No pelvic free fluid. US/US pelvic and transvaginal IMPRESSION: 1. Vascular flow noted in the left ovary. 2. Right ovary not well visualized. 3. Suggestion of thickening along the lower uterine segment with echogenic material possibly representing old blood products. If clinically warranted consider further evaluation with direct visualization.
--- NOTE | ~2022-11-30 | CT_ITS ---
EXAMINATION: CT ABDOMEN AND PELVIS WITH CONTRAST CLINICAL INFORMATION: Lower abdominal discomfort COMPARISON: None available. TECHNIQUE: Multidetector volumetric images were obtained from the superior aspect of the liver through the pubic symphysis following administration 85 mL of Omnipaque 350 intravenous contrast. Sagittal and coronal reformatted images were obtained on the technologist's workstation. Oral contrast: No This CT examination was performed using dose optimization techniques as appropriate, variously including the following: *Automated exposure control *Adjustment of mA and/or kV according to patient size (this includes techniques or standardized protocols for targeted exams where dose is matched to indication/reason for exam; i.e. extremities or head) *Use of iterative reconstruction technique DLP: 1071 mGy-cm FINDINGS: LUNG BASES: The visualized lung bases are unremarkable. LIVER, GALLBLADDER, AND BILIARY TREE: The liver is normal in size, shape, and attenuation. No focal hepatic lesion or biliary ductal dilatation is present. The gallbladder is surgically absent. PANCREAS: Unremarkable. SPLEEN: Unremarkable. ADRENAL GLANDS: Unremarkable. KIDNEYS AND URETERS: The kidneys are normal in size, shape, and attenuation. No hydronephrosis, hydroureter, or calculi seen. No perinephric stranding. BLADDER: Unremarkable. GASTROINTESTINAL TRACT: The small and large bowel are unremarkable. The appendix is unremarkable. ABDOMINAL WALL: No significant hernia is appreciated. LYMPH NODES: Normal. VASCULAR: Unremarkable. PELVIC VISCERA: A 2.5 cm follicle is evident in the left adnexa. The cervix is very prominent and is lower in density than the remainder of the uterus. There is a questionable filling defect within the endocervical canal. There is no free fluid in the cul-de-sac. OSSEOUS STRUCTURES: No suspicious bone lesions. Severe central canal stenosis is evident at L5-S1. CT/CT abdomen pelvis w IV con IMPRESSION: 1. Prominence of the uterine lower uterine segment and cervix, with a questionable filling defect in the endocervical canal. Cervical neoplasm is not excluded. Correlation with direct visualization and pelvic ultrasound is recommended, as is gynecologic management. 2. No acute findings in the upper abdomen. 3. Incidental severe spinal stenosis at L5-S1. Fleischner guidelines were followed.
--- NOTE | ~2022-11-30 | XR_ITS ---
EXAMINATION: XR CHEST CLINICAL INFORMATION: Shortness of breath COMPARISON: 03/22/2019 TECHNIQUE: Frontal view of the chest was obtained. FINDINGS: No significant abnormality is noted involving the heart, lungs, mediastinum, bony thorax or soft tissues. XR/XR chest 1V IMPRESSION: Unremarkable examination.
--- NOTE | ~2022-11-30 | US_ITS ---
EXAMINATION: US PELVIS COMPLETE US PELVIS ENDOVAGINAL CLINICAL INFORMATION: Vaginal bleeding evaluate for torsion COMPARISON: CT abdomen from 11/30/2022, ultrasound pelvis from 11/09/2022 TECHNIQUE: Transabdominal and transvaginal images of the pelvis were obtained. FINDINGS: UTERUS: Anteverted. Normal size and contour, measuring 10.6 x 4.5 x 6.4 cm (cervix to fundus x AP x transverse). Uniform, homogeneous endometrium measures 1.3 cm in width. Suggestion of thickening along the lower uterine segment with echogenic material possibly representing old blood products. Complex and simple appearing nabothian cysts are visualized. Cyst within scar visualized. RIGHT OVARY: Right ovary not well visualized. LEFT OVARY: Normal size and echogenicity measuring 3.1 x 2.7 x 2.7 cm, volume 12.1 mL. Vascular flow noted in the left ovary. FREE FLUID: No pelvic free fluid. US/US pelvic ovarian doppler IMPRESSION: 1. Vascular flow noted in the left ovary. 2. Right ovary not well visualized. 3. Suggestion of thickening along the lower uterine segment with echogenic material possibly representing old blood products. If clinically warranted consider further evaluation with direct visualization.
[2022-11-30 08:19] LABS: MANUAL DIFF FLAG NO
[2022-11-30 08:21] LABS: Basophils Percent Auto 0.4 % (0-2); Eosinophils Absolute Auto 0.1 X10*3/uL (0.0-0.4); Eosinophils Percent Auto 1.2 % (0-4); Hematocrit 32.3 % (37.0-47.0); Hemoglobin 10.3 g/dl (12.0-16.0); Imm Gran Abs Auto 0.02 X10*3/uL (0.00-0.03); Imm Gran Pct Auto 0.2 % (0.0-0.4); Lymphocytes Absolute Auto 1.8 X10*3/uL (1.2-4.9); Lymphocytes Percent Auto 21.5 % (20-40); Mean Corpuscular HGB Conc 31.9 g/dl (31.0-35.0); Mean Corpuscular Hemoglobin 29.3 pg (27.0-33.0); Mean Corpuscular Volume 91.8 fL (80.0-98.0); Mean Platelet Volume 10.3 fL (9.4-12.3); Monocytes Absolute Auto 0.4 X10*3/uL (0.1-1.2); Monocytes Percent Auto 4.6 % (2-11); Neutrophils Percent Auto 72.1 % (45-73); Platelet Count 232 X10*3/uL (160-400); Red Blood Count 3.52 X10*6/uL (4.20-5.50); Red Cell Distribution Width 13.7 % (11.0-16.0); White Blood Count 8.3 X10*3/uL (4.8-10.8)
--- NOTE | 2022-11-30 08:30 | PC.NURSE ---
pt a&ox3. respirations even and unlabored. pt reports having vaginal bleeding since october 19, 2022 without relief. pt reports passing quarter sized blood clots. pt denies nausea, vomiting and chest pain. pt reports overall weakness and dizzness starting at the beginning of this week. pt reports abdominal pain. abdomen soft non tender. bowel sounds active in all quadrants.
[2022-11-30 08:38] LABS: Appearance Urine Turbid; Color Urine RED; Glucose Urine UA Negative (Negative); Leukocyte Esterase Urine Negative (Negative); Nitrite Urine Negative (Negative); UMIC TRIGGER UACC YES; Urine Blood Large (3+) (Negative); Urine Ketones Negative (Negative); Urine Protein 100 (2+) mg/dL (Neg-Trace)
[2022-11-30 08:40] LABS: Specific Gravity - Urine >= 1.030 (1.005-1.025)
[2022-11-30 08:42] LABS: Alanine Aminotransferase 7 U/L (0-31); Albumin Level 3.9 g/dL (3.5-5.0); Alkaline Phosphatase 58 U/L (39-117); Anion Gap 12 (12-20); Aspartate Amino Transferase 11 U/L (5-31); Bilirubin Total 0.8 mg/dL (0.0-1.0); Blood Urea Nitrogen 7 mg/dL (9-16); COVID-19 Test Negative (Negative); Calcium 8.9 mg/dL (8.4-10.2); Carbon Dioxide 23 mmol/L (22-29); Chloride 111 mmol/L (96-108); Creatinine Clr Calc Pharmacy 127.6; Estimated Glomerular Filt Rate > 60; Glucose Random 102 mg/dL (60-115); HCG Quantitative < 2 mIU/mL; IDNOW Serial# BCCEAD1C; Magnesium 1.9 mg/dL (1.6-2.6); Potassium 3.6 mmol/L (3.3-5.1); Sodium 142 mmol/L (135-145)
[2022-11-30 08:45] LABS: Bacteria Urine None Seen (None Seen); Hyaline Casts Urine 0-2 /LPF (0-2); RBC Urine >20 /HPF (0-2); UACC Culture Trigger YES; WBC Urine 21-50 /HPF (0-5)
--- NOTE | 2022-11-30 08:58 | ED_ITS ---
HPI - Female Genitourinary General Chief complaint: Vaginal Bleeding Stated complaint: vaginal bleeding Time Seen by Provider: 11/30/22 07:57 Source: patient Mode of arrival: ambulatory Limitations: no limitations History of Present Illness HPI Narrative: 42 y o female presenting for evaluation of menorrhagia x5 weeks with associated lower abdominal pain. Patient was regularly having menses every month prior to a new diet pill . Patient reports taking fenamide prescribed by PCP for weightloss from July to October in which she did not receive her menses. Patient stopped taking her fenamide in the beginning of October and began having vaginal bleeding 10/21, describing it as heavy with clots, described as larger than a quarter in size. Patient states she has had consistent heavy vaginal bleeding for the past 5 weeks, describing as having to change sanitary napkins 1-2 times per hour. She also endorses associated lower abdominal pain b/l which she states has been present since starting the bleeding episode on 10/21. Since the start of her menorrhagia, she has also been endorsing hematuria, stating when I pee there's no urine, it's just blood . Patient recently seen one week ago at her OBGYN for an annual exam and PAP smear, also received EMB d/t current vaginal bleeding (results demonstrated no cervical atypia or dysplasia, and EMB results demonstrated no atypia or hyperplasia). At the time of her OBGYN visit, she was started on medroxyprogesterone to aid in stopping the bleeding. Patient reports increased vaginal bleeding since starting the medroxyprogesterone. Patient also endorses dyspnea on exertion with walking from a bed to a bathroom, to which the patient attributes her shortness of breath d/t increased abdominal pain radiating to flanks b/l with ambulation. Patient also endorsing intermittent dizziness. Patient denies any chest pain, visual disturbances, changes in BMs, unintentional weight loss, nausea, vomiting, and diarrhea. Of note, patient is not on blood thinners. Rrecently also had negative NG/CT tests Related Data : 2 Para: 2 Previous Rx's Medication Instructions Recorded cyclobenzaprine 5 mg tablet 5 mg PO TID PRN muscle spasm #10 04/28/20 tabs famotidine 40 mg tablet 40 mg PO BEDTIME #90 tabs 01/02/22 methylcellulose (laxative) 500 mg 500 mg PO DAILY #30 tabs 01/02/22 tablet (Citrucel) sennosides 8.6 mg tablet (Natural 17.2 mg (2 x 8.6 mg) PO BEDTIME 01/02/22 Senna Laxative) constipation #60 tabs cholecalciferol (vitamin D3) 50 50 mcg PO DAILY #90 caps 02/06/22 mcg (2,000 unit) capsule cyanocobalamin (vitamin B-12) 1,000 mcg PO DAILY #90 caps 02/06/22 1,000 mcg capsule [id number] 1 cap PO .qid ac #360 caps 02/06/22 6,000-19,000-30,000 unit capsule,delayed rel (Creon) medroxyprogesterone 10 mg tablet 10 mg PO DAILY #30 tabs 11/02/22 (Provera) medroxyprogesterone 10 mg tablet 10 mg PO BID 7 days #14 tabs 11/30/22 (Provera) Allergies Allergy/AdvReac Type Severity Reaction Status Date / Time acetaminophen [From TYLENOL] Allergy Unknown HIVES Verified 11/30/22 07:40 ketorolac [From TORADOL] Allergy Unknown SWELLING Verified 11/30/22 07:40 Review of Systems 2 Review of Systems: Constitutional : No Weight loss, No Fever, No Chills, No Fatigue, no Malaise ENT/Mouth : No sore throat, No Rhinorrhea Eyes: No Eye Pain, No Swelling, No Redness Cardiovascular : No Chest Pain, No SOB at rest, +Dyspnea on Exertion, No Orthopnea, No Edema, No Palpitations Respiratory : No Cough, No Sputum, No Wheezing Gastrointestinal : No Nausea, No Vomiting, No Diarrhea, No Constipation, +abdominal Pain, No Hematochezia, No Melena Genitourinary : No Dysuria, No Urinary Frequency, + Hematuria, +vaginal bleeding Musculoskeletal : No joint pain, No Myalgias, No Joint Swelling Skin : No Skin Lesions, No rash Neuro : +Weakness, No Numbness, No Dizziness, No Headache Psych : No Anxiety/Panic, No Depression Heme/Lymph: No Bruising, No Bleeding,No Lymphadenopathy Endocrine : No Polyuria, No Polydipsia All other systems reviewed and are negative PMFSH Past Medical History Attestation statement: The following information was validated with the patient. Source: old records reviewed and nursing notes reviewed Medical History Pancreatic insufficiency Right bundle branch block Surgical History History of section History of cholecystectomy : 2 Para: 2 Social History Social History Household Members: Family Alcohol intake: never Patient Tobacco Use Status: Never used Tobacco Tobacco use type: Cigarette Smoked in Last 30 Days: Yes e-Cigarette/Vaping Use: Former Use Use of substances other than those prescribed or required for medical reasons: No Advance Directives: No Advance Directives Information Provided: No Physical Exam 2 Vital Signs: Vital Signs: Last Vital Signs Temp 98.3 F 11/30/22 12:08 Pulse 84 11/30/22 15:30 Resp 18 11/30/22 15:30 BP 132/70 11/30/22 15:30 Pulse Ox 99 11/30/22 15:30 O2 Del Method Room Air 11/30/22 15:30 BMI result Body Mass Index 45.0 Appearance: Alert.? Oriented X3.? No acute distress.? Head: Normocephalic, atraumatic, no step-offs or deformities Eyes: Pupils equal, round and reactive to light.? Neck: Normal inspection.? Neck supple.? CVS: Normal heart rate and rhythm.? Pulses normal.? Respiratory: No respiratory distress.? Breath sounds normal.? Abdomen: Soft, +suprapubic TTP Skin: Skin warm and dry.? Normal skin color.? Normal skin turgor.? Extremities: No lower extremity edema.? No calf ttp. 5/5 strength to bilateral upper and lower extremities Back: No midline tenderness, no C-spine tenderness, full range of motion, no CVA tenderness bilaterally Neuro: Oriented X 3.? No motor deficit.? No sensory deficit. CN 2-12 intact Sensitive exam: refer to course Course Reevaluation(s) Reevaluation #1: Patient's CBC appears to be around patient's baseline w/ a normocytic anemia . Chemistry with no acute findings requiring intervention. HCG negative. UA without infection. However blood noted. Ultrasound pelvic Doppler with vascular flow to the left ovary, right ovary not well visualized. Suggestion of thickening along the lower uterine segments with echogenic material question old blood products. CT of the abdomen and pelvis with prominence of the uterine low uterine segment and cervix with a question filling defect in the endocervical canal cervical neoplasm cannot be excluded. At this time will do a pelvic exam and reach out to OBGYN Time: 14:15 Reevaluation #2: Pelvic w/ closed cervical os and mild / moderate bleeding noted in vaginal canal. No adnexal tendernss. No lesions lumps or masses. + skin tag at the 7 oclock position. Tollerated procedure well. Spoke to Dr. Reeves who tells me that patient was seen in office and had an extensive workup done, all of which was unremarkable. Repeat H&H pending Dr. Reeves may see patient in the department. Time: 15:00 Reevaluation #3: Dr. Reeves be evaluated patient at bedside, offered her an IUD patient refusing, patient will likely get ablation, she will follow-up with him in the office on Sunday he recommends Provera 10 mg p.o. b.i.d. x7 days. And we discussed strict return precautions like bleeding through more than 2 pads an hour. CBC went down to 9.7 and 31.2, Dr. Reeves E aware at this time feels comfortable discharge not complaining of headache, shortness of breath, nausea, vomiting, dizziness or weakness, patient's vital signs remained stable, no tachycardia, blood pressure stable peer Educated patient on diagnosis and treatment plan, answered all question, patient verbalizes understanding. At this time patient will be discharged home, advised to return with new or worsening symptoms. Educated on worrisome signs and symptoms and when to return. At this time I feel comfortable discharge home. Time: 16:10 Medications Administered Discontinued Medications Generic Name Dose Route Start Last Admin Trade Name Freq PRN Reason Stop Dose Admin Diphenhydramine HCl 25 mg 11/30/22 11:53 11/30/22 11:58 Diphenhydramine Hcl 50 Mg/Ml Vial IVPUSH 11/30/22 11:54 25 mg ONCE ONE Administration Iohexol 100 ml 11/30/22 10:15 11/30/22 10:16 Iohexol 350 Mg/Ml 100 Ml Infus..Btl IV 11/30/22 10:16 85 ml ONCE ONE Administration Morphine Sulfate 4 mg 11/30/22 11:13 11/30/22 11:38 Morphine Sulfate 4 Mg/Ml Cartridge IVPUSH 11/30/22 11:14 4 mg ONCE ONE Administration Protocol Medical Decision Making Medical Decision Making MDM Narrative: 42 y o female presenting for menorrhagia x5 weeks with associated lower abdominal pain, now with associated [place] and weakness. PE significant for suprapubic tenderness to palpation. Concern for AUB vs leioymyomas vs endometrial cancer vs uterine adenomas vs bladder cancer vs Lab Data 11/30/22 14:49 11/30/22 08:12 Labs: Lab Results 11/30/22 11/30/22 Range/Units 08:12 14:49 WBC 8.3 9.9 (4.8-10.8) X10*3/uL RBC 3.52 L 3.34 L (4.20-5.50) X10*6/uL Hgb 10.3 L 9.7 L (12.0-16.0) g/dl Hct 32.3 L 31.2 L (37.0-47.0) % MCV 91.8 93.4 (80.0-98.0) fL MCH 29.3 29.0 (27.0-33.0) pg MCHC 31.9 31.1 (31.0-35.0) g/dl RDW 13.7 13.7 (11.0-16.0) % Plt Count 232 277 (160-400) X10*3/uL MPV 10.3 10.3 (9.4-12.3) fL Immature Gran % (Auto) 0.2 0.3 (0.0-0.4) % Neut % (Auto) 72.1 63.1 (45-73) % Lymph % (Auto) 21.5 30.8 (20-40) % [place] % (Auto) 4.6 4.4 (2-11) % Eos % (Auto) 1.2 1.1 (0-4) % Baso % (Auto) 0.4 0.3 (0-2) % Lymph # (Auto) 1.8 3.1 (1.2-4.9) X10*3/uL [place] # (Auto) 0.4 0.4 (0.1-1.2) X10*3/uL Eos # (Auto) 0.1 0.1 (0.0-0.4) X10*3/uL Baso # (Auto) 0.0 0.0 (0.0-0.2) X10*3/uL Abs Immat Gran (auto) 0.02 0.03 (0.00-0.03) X10*3/uL Absolute Neuts (auto) 6.0 6.2 (2.0-8.3) x10*3/uL Absolute Nucleated RBC 0.000 0.000 (0.0-0.012) X10*3/uL Nucleated RBC % (auto) 0.0 0.0 (0.0-0.2) /100WBC Sodium 142 (135-145) mmol/L Potassium 3.6 (3.3-5.1) mmol/L Chloride 111 H (96-108) mmol/L Carbon Dioxide 23 (22-29) mmol/L Anion Gap 12 (12-20) BUN 7 L (9-16) mg/dL Creatinine 0.71 (0.5-1.4) mg/dL Estim Creat Clear Calc 127.6 Estimated GFR > 60 Random Glucose 102 (60-115) mg/dL Calcium 8.9 (8.4-10.2) mg/dL Magnesium 1.9 (1.6-2.6) mg/dL Total Bilirubin 0.8 (0.0-1.0) mg/dL AST 11 (5-31) U/L ALT 7 (0-31) U/L Alkaline Phosphatase 58 (39-117) U/L Total Protein 7.0 (6.5-8.0) g/dL Albumin 3.9 (3.5-5.0) g/dL Beta HCG, Quant < 2 mIU/mL Urine Color RED Urine Appearance Turbid Urine pH 6.0 (5.0-9.0) Ur Specific [place] >= 1.030 H (1.005-1.025) Urine Protein 100 (2+) H (Neg-Trace) mg/dL Urine Glucose (UA) Negative (Negative) mg/dL Urine Ketones Negative (Negative) mg/dL Urine Blood Large (3+) H (Negative) Urine Nitrite Negative (Negative) Ur Leukocyte Esterase Negative (Negative) Urine RBC >20 H (0-2) /HPF Urine WBC 21-50 H (0-5) /HPF Ur Squamous Epith Cells 3-5 (0-2) /HPF Urine Bacteria None Seen (None Seen) Hyaline Casts 0-2 (0-2) /LPF COVID-19 (REJI) Negative (Negative) COVID-19 Clin Com See Note Blood Type O Positive Antibody Screen NEGATIVE Critical Care Time Critical Care Time Critical Care Time: Yes Total Critical Care Time: 60 Attestation: I attest to this time spent taking care of the patient, obtaining history, physical, reviewing labs, imaging, speaking to my attending, speaking to specialist. Discharge Plan Discharge Clinical Impression: Abnormal vaginal bleeding Patient Disposition: Home, Self-Care Instructions: Dysfunctional Uterine Bleeding (ED) Additional Instructions: Take your medications as prescribed. If you were prescribed antibiotics today, it is important that you take your medication to their entirety, do not skip any doses, do not finish them early. Follow-up with your primary care provider this week. Return to the emergency department with new or worsening symptoms. Such as fevers, chills, chest pain, shortness of breath, nausea, vomiting, dizziness, headache, vision changes, lethargy In case of emergency call 911 Call and schedule an appointment with OBGYN as soon as possible. Please return if your bleeding through more than 2 pads per hour. XR/XR chest 1V IMPRESSION: Unremarkable examination. US/US pelvic and transvaginal IMPRESSION: 1. Vascular flow noted in the left ovary. 2. Right ovary not well visualized. 3. Suggestion of thickening along the lower uterine segment with echogenic material possibly representing old blood products. If clinically warranted consider further evaluation with direct visualization. CT/CT abdomen pelvis w IV con IMPRESSION: 1. Prominence of the uterine lower uterine segment and cervix, with a questionable filling defect in the endocervical canal. Cervical neoplasm is not excluded. Correlation with direct visualization and pelvic ultrasound is recommended, as is gynecologic management. 2. No acute findings in the upper abdomen. 3. Incidental severe spinal stenosis at L5-S1. Fleischner guidelines were followed. Prescriptions: New medroxyprogesterone [Provera] 10 mg tablet 10 mg PO BID 7 Days Qty: 14 0RF No Action cyclobenzaprine 5 mg tablet 5 mg PO TID PRN (Reason: muscle spasm) Qty: 10 0RF Citrucel 500 mg tablet 500 mg PO DAILY Qty: 30 2RF Rx Instructions: take it with full glass of water sennosides [Natural Senna Laxative] 8.6 mg tablet 17.2 mg PO BEDTIME Qty: 60 3RF famotidine 40 mg tablet 40 mg PO BEDTIME Qty: 90 3RF Creon 6,000-19,000 -30,000 unit capsule,delayed release(DR/EC) 1 cap PO .qid ac Qty: 360 2RF Rx Instructions: do not exceed 10,000 unit/kg lipase per 24 hrs cholecalciferol (vitamin D3) 50 mcg (2,000 unit) capsule 50 mcg PO DAILY Qty: 90 3RF cyanocobalamin (vitamin B-12) 1,000 mcg capsule 1,000 mcg PO DAILY Qty: 90 2RF medroxyprogesterone [Provera] 10 mg tablet 10 mg PO DAILY Qty: 30 0RF Rx Instructions: Stop taking 20 mg t.i.d.; and start taking 10 mg once a day for 30 days. Referrals: Susi Bolton MD [Primary Care Provider] - 2 days [place] Reeves MD [Physician] - 2 days
[2022-11-30] MEDS: iohexoL 350 MG/ML 100 ML INFUS..BTL IV (10:16)
[2022-11-30] MEDS: Morphine Sulfate 4 MG/ML CARTRIDGE IVPUSH (11:38)
[2022-11-30] MEDS: diphenhydrAMINE HCL 50 MG/ML VIAL 25 MG IVPUSH (11:58)
--- NOTE | 2022-11-30 12:02 | PC.NURSE ---
after administering morphine to the pt, pt left AC became warm to touch and itchy. pt denies any throat itching. lung sounds clear bilaterally.
--- NOTE | 2022-11-30 14:46 | P.CONOB_ITS ---
LAUNDRY OPERATOR FINISHING - CN: HPI Data of Consult Consult date: 11/30/22 Primary Care Provider: Susi Bolton MD Consult Narrative Narrative: I was consulted on Cristiane Silva who is a 42 year old female presented emergency room complaining of vaginal bleeding associated with passage of blood clots and pelvic cramping. The patient was seen with her primary care physician for vaginal bleeding was prescribed medroxyprogesterone acetate 20 mg p.o. t.i.d. for 7 days and saw Maricarmen Muro CNM in the office where the following workup was done: Co testing negative, EMB negative for endometrial hyperplasia and malignancy, GC/chlamydia negative, as H&H 11.2/35.1, TSH, hCG negative. Pelvic ultrasound was unremarkable, last mammogram was in 09/08 was BI-RADS 2 & medroxyprogesterone was lowered to 10 mg p.o. q.d. In the emergency room H&H on present tissue was 10.3/32.3 at 08:12 repeat at 14:49 dropped to 9.72 /31.2, hCG is less than 2. Pelvic ultrasound was done cc:: CC: [facility] Past Medical History Medical History Pancreatic insufficiency Right bundle branch block Surgical History Surgical History History of section History of cholecystectomy Social History Social History Household Members: Family Alcohol intake: never Patient Tobacco Use Status: Never used Tobacco Tobacco use type: Cigarette Smoked in Last 30 Days: Yes e-Cigarette/Vaping Use: Former Use Use of substances other than those prescribed or required for medical reasons: No Advance Directives: No Advance Directives Information Provided: No Meds Allergies Allergy/AdvReac Type Severity Reaction Status Date / Time acetaminophen [From TYLENOL] Allergy Unknown HIVES Verified 11/30/22 07:40 ketorolac [From TORADOL] Allergy Unknown SWELLING Verified 11/30/22 07:40 LAUNDRY OPERATOR FINISHING Physical Exam Vitals Vital signs: Temp Pulse Resp BP Pulse Ox O2 Del Method 98.3 F 74 18 102/72 94 Room Air 11/30/22 12:08 11/30/22 12:08 11/30/22 12:08 11/30/22 12:08 11/30/22 12:08 11/30/22 12:08 BMI result Body Mass Index 45.0 Female Genitalia (Pelvic) Bladder/Urethra: Normal meatus Vulva: No lesions Vagina: Nontender Cervix: Grossly normal Uterus: Normal size Adnexa/Parametria: Adnexal Tenderness: None, Adnexal Mass: None, Parametrial Tenderness: None and Parametrial Mass: None Additional Comments: No active bleeding LAUNDRY OPERATOR FINISHING - Results Labs 11/30/22 14:49 11/30/22 08:12 Labs: Short CBC 11/30/22 Range/Units 08:12 WBC 8.3 (4.8-10.8) X10*3/uL Hgb 10.3 L (12.0-16.0) g/dl Hct 32.3 L (37.0-47.0) % Plt Count 232 (160-400) X10*3/uL BMP 11/30/22 08:12 Sodium 142 Potassium 3.6 Chloride 111 H Carbon Dioxide 23 BUN 7 L Creatinine 0.71 Calcium 8.9 Liver Function 11/30/22 Range/Units 08:12 Total Bilirubin 0.8 (0.0-1.0) mg/dL AST 11 (5-31) U/L ALT 7 (0-31) U/L Alkaline Phosphatase 58 (39-117) U/L Albumin 3.9 (3.5-5.0) g/dL Urine 11/30/22 Range/Units 08:12 Urine Color RED Urine Appearance Turbid Urine pH 6.0 (5.0-9.0) Ur Specific [place] >= 1.030 H (1.005-1.025) Urine Protein 100 (2+) H (Neg-Trace) mg/dL Urine Glucose (UA) Negative (Negative) mg/dL Antibody Screen Antibody Screen NEGATIVE 11/30/22 08:12 Imaging US - abdomen: Radiologist's impression: ITS Impressions Doppler Study Ultrasound 11/30/22 09:35 IMPRESSION: 1. Vascular flow noted in the left ovary. 2. Right ovary not well visualized. 3. Suggestion of thickening along the lower uterine segment with echogenic material possibly representing old blood products. If clinically warranted consider further evaluation with direct visualization. Pelvic/Transvag US 11/30/22 09:35 IMPRESSION: 1. Vascular flow noted in the left ovary. 2. Right ovary not well visualized. 3. Suggestion of thickening along the lower uterine segment with echogenic material possibly representing old blood products. If clinically warranted consider further evaluation with direct visualization. Abdomen/Pelvis CT 11/30/22 10:18 IMPRESSION: 1. Prominence of the uterine lower uterine segment and cervix, with a questionable filling defect in the endocervical canal. Cervical neoplasm is not excluded. Correlation with direct visualization and pelvic ultrasound is recommended, as is gynecologic management. 2. No acute findings in the upper abdomen. 3. Incidental severe spinal stenosis at L5-S1. Fleischner guidelines were followed. Chest X-Ray 11/30/22 13:30 IMPRESSION: Unremarkable examination. Assessment and Plan (1) Abnormal uterine bleeding (AUB): Status: Acute Discussed with the patient the results of the work up done and options of treatment including BCP's, Mirena IUD, Provera, endometrial ablation and hysterectomy. All pros, cons, risks and benefits if each option was discussed with the patient and the patient decided to go ahead with endometrial ablation. Meanwhile instructions given the patient to increase her Provera to 10 mg p.o. b.i.d., follow-up in the office for a preop visit and to come back to the emergency room in case of persistence of her heavy vaginal bleeding.The patient verbalized understanding and agreed with the plan. Time Spent With Patient Time: Total time managing care of this patient today ____ minutes.
[2022-11-30 15:04] LABS: MANUAL DIFF FLAG NO
[2022-11-30 15:06] LABS: Basophils Percent Auto 0.3 % (0-2); Eosinophils Absolute Auto 0.1 X10*3/uL (0.0-0.4); Eosinophils Percent Auto 1.1 % (0-4); Hematocrit 31.2 % (37.0-47.0); Hemoglobin 9.7 g/dl (12.0-16.0); Imm Gran Abs Auto 0.03 X10*3/uL (0.00-0.03); Imm Gran Pct Auto 0.3 % (0.0-0.4); Lymphocytes Absolute Auto 3.1 X10*3/uL (1.2-4.9); Lymphocytes Percent Auto 30.8 % (20-40); Mean Corpuscular HGB Conc 31.1 g/dl (31.0-35.0); Mean Corpuscular Volume 93.4 fL (80.0-98.0); Mean Platelet Volume 10.3 fL (9.4-12.3); Monocytes Absolute Auto 0.4 X10*3/uL (0.1-1.2); Monocytes Percent Auto 4.4 % (2-11); Neutrophils Absolute Auto 6.2 x10*3/uL (2.0-8.3); Neutrophils Percent Auto 63.1 % (45-73); Platelet Count 277 X10*3/uL (160-400); Red Blood Count 3.34 X10*6/uL (4.20-5.50); Red Cell Distribution Width 13.7 % (11.0-16.0); White Blood Count 9.9 X10*3/uL (4.8-10.8)
--- NOTE | 2022-11-30 15:31 | PC.NURSE ---
left ac swelling and redness has subsided. pt denies pain at this time.
[2022-11-30 16:11] LABS: B Type Natriuretic Peptide 10 pg/mL (<100)
== END 2022-11-30 16:21 | disposition home or self-care (01) ==
PROVIDERS: Physician Assistant; Emergency Provider Emergency Medicine; PCP Family Medicine
DX: N93.9 Abnormal uterine and vaginal bleeding, unspecified (principal); Z20.822 Contact with and (suspected) exposure to COVID-19; Z79.899 Other long term (current) drug therapy
CPT/HCPCS: 36415; 71045; 74177; 76830; 76856; 80053; 81001; 83735; 83880; 84702; 85025; 86850; 86900; 86901; 87086; 87635; 93975; 96374; 96375; 99284; J1200; J2270; Q9967

== ENCOUNTER → 2022-11-30 08:59 | Outpatient (BNV) | payer MEDICAID, SELFPAY | PROVIDERS: Emergency Provider Emergency Medicine; PCP Family Medicine; Visit Provider Obstetrics & Gynecology | DX: N93.9 Abnormal uterine and vaginal bleeding, unspecified (principal) | CPT/HCPCS: 99283 ==

== ENCOUNTER 2022-12-04 09:29 | Outpatient (AMB) | payer MEDICAID, SELFPAY ==
[2022-12-04 09:33] VITALS: BP 122/84; BMI 44.8
--- NOTE | 2022-12-04 09:33 | MHC.OFFVIS ---
Intake Vital Signs 12/04/22 09:33 Height 5 ft 3 in Weight 253 lb BMI 44.8 BP 122/84 Intake Visit Reasons: pre op/ Novasure Surgeon/President: Surgeon/President Present Allergies morphine Allergy (Severe, Verified 12/04/22 09:37) Hives acetaminophen [From TYLENOL] Allergy (Unknown, Verified 12/04/22 09:35) HIVES ketorolac [From TORADOL] Allergy (Unknown, Verified 12/04/22 09:35) SWELLING Is last menstrual period known: Yes Last menstrual period: 10/19/22 Post menopausal: No Patient : No Do you need a note to return to daycare/school/sports/work: Yes (for surgery on sunday) HPI HPI Comments History of Present Illness Details Presenting for follow-up from ED visit regarding vaginal bleeding associated with passage of blood clots and pelvic cramping. The patient was seen few weeks ago by her primary care physician for vaginal bleeding was prescribed medroxyprogesterone acetate 20 mg p.o. t.i.d. for 7 days and saw Maricarmen Muro CNM in the office where the following workup was done: Co testing negative, EMB negative for endometrial hyperplasia and malignancy, GC/chlamydia negative, as H&H 11.2/35.1, TSH, hCG negative. Pelvic ultrasound was unremarkable, last mammogram was in 09/08 was BI-RADS 2 & medroxyprogesterone was lowered to 10 mg p.o. q.d. In the emergency room H&H was 10.3/32.3 repeated after few hours dropped to 9.72 /31.2, hCG is less than 2. Pelvic ultrasound was done and showed the following: IMPRESSION: 1. Vascular flow noted in the left ovary. 2. Right ovary not well visualized. 3. Suggestion of thickening along the lower uterine segment with echogenic material possibly representing old blood products. If clinically warranted consider further evaluation with direct visualization. The patient was offered different options of treatment including stay on progesterone treatment, Mirena IUD, control pills, Lysteda, NovaSure endometrial ablation or hysterectomy. All pros and cons and risks and benefits of each were discussed with the patient patient decided to proceed with NovaSure endometrial ablation. Progesterone was increased to 10 mg p.o. b.i.d. [facility]LY [facility] Medical History Pancreatic insufficiency Right bundle branch block Surgical History History of section History of cholecystectomy Social History Household Members: Family Alcohol intake: never Patient Tobacco Use Status: Never used Tobacco Tobacco use type: Cigarette e-Cigarette/Vaping Use: Former Use Female Reproductive History Menstrual Date of last menstrual period: 10/19/22 Total pregnancies: 2 Full term: 2 Review of Systems Card Reports as per HPI and Reports no additional complaints Resp Reports as per HPI and Reports no additional complaints GI Reports as per HPI and Reports no additional complaints Reports as per HPI Physical Exam Vital Signs: BMI result Body Mass Index 44.8 Const General: cooperative, healthy appearing and comfortable Chest Chest palpation & inspection: normal inspection of the chest and normal palpation of entire chest wall Breast/axilla inspection: normal inspection of the breasts and normal inspection of the axillae Breast/axilla palpation: normal palpation of the breasts, normal palpation of the axillae and no axillary lymphadenopathy Resp Effort & Inspection: normal respiratory effort Auscultation: clear to auscultation bilaterally Percussion: percussion normal Cardio Palpation: normal PMI Rate: regular rate Rhythm: regular rhythm Heart sounds: no murmurs and no rubs Peripheral pulses: Peripheral pulses 2+ throughout GI Inspection: Yes normal to inspection Palpation (GI): Soft to palpation, nontender, no guarding, not rigid and No hepatosplenomegaly present Percussion: Yes normal to percussion Auscultation: normal bowel sounds Rectal Exam - Female: deferred Assessment & Plan Assessment & Plan (1) Abnormal uterine bleeding (AUB): Code(s): N93.9 - Abnormal uterine and vaginal bleeding, unspecified Plan: Discussed with the patient the results of the work up done and options of treatment including Lysteda, BCP's, Mirena IUD, endometrial ablation and hysterectomy. All pros, cons, risks and benefits if each option was d/w pt and pt decided to go ahead with endometrial ablation. so a more detailed discussion about the procedure was conducted including mechanism of action, risks (inability to perform the procedure, uterine perforation, infection, injury to bladder, bowel, inability to access endometrial cavity to rule out endometrial pathology in the future due to intrauterine adhesions, failure of the procedure needing other treatments and others) benefits ( hypomenorrhea, amenorrhea, ...) Pt is not interested in future conception and undertands that while Endometrial Ablation is not a method of contraception it will lower her chance of conception, and the procedure might cause inability of diagnosing any future endometrial pathology including hyperplasia or cancer because of lack of access to endometrial cavity secondary to uterine adhesions from the endometrial ablation. Pt verbalized understanding and signed the consent. Instructions given the patient to schedule a follow-up appointment in 2-4 weeks for postoperative visit Coding Level of Care Code Est Pt Level 3 (17845) Diagnoses Abnormal uterine bleeding (AUB) N93.9
== END 2022-12-04 11:01 | disposition home or self-care (01) ==
PROVIDERS: PCP Family Medicine; Visit Provider Obstetrics & Gynecology
DX: N93.9 Abnormal uterine and vaginal bleeding, unspecified (principal)
CPT/HCPCS: 99213

== ENCOUNTER → 2022-12-04 09:29 | Outpatient (BNVA) | payer MEDICAID, SELFPAY | PROVIDERS: PCP Family Medicine; Visit Provider Obstetrics & Gynecology | DX: N93.9 Abnormal uterine and vaginal bleeding, unspecified (principal) | CPT/HCPCS: 99212 ==

== ENCOUNTER 2022-12-06 08:46 | Day surgery (SDC) | payer MEDICAID, SELFPAY ==
--- NOTE | 2022-12-05 11:57 | HO.ANESPROP2 ---
Documented by User: Sol Campbell NP 12/05/22 11:59 HPI - Anesthesia Eval Consult details Narrative: 42yo F for Uterine Ablation w/Zak PMFSH Active Problems Active Problems: All Active Problems (Updated 12/01/22 @ 00:01 by Marlo Matthew) Menorrhagia (Acute) Screen for sexually transmitted diseases (Acute) Breast cancer screening (Acute) Cervical cancer screening (Acute) Abnormal uterine bleeding (AUB) (Acute) History of section (Acute) Pancreatic insufficiency (Acute) Hand cramps (Acute) Numbness and tingling in right hand (Acute) Past Medical History Medical History (Updated 12/06/22 @ 09:11 by Berenice Boucher) Pancreatic insufficiency Right bundle branch block Surgical History Surgical History (Updated 12/06/22 @ 09:11 by Berenice Boucher) H/O tubal ligation History of section History of cholecystectomy Social History Social History Household Members: Family Alcohol intake: never Patient Tobacco Use Status: Never used Tobacco Tobacco use type: Cigarette e-Cigarette/Vaping Use: Former Use Use of substances other than those prescribed or required for medical reasons: No Are you DNR?: No Advance Directives: No Advance Directives Information Provided: Yes Meds Allergies Allergy/AdvReac Type Severity Reaction Status Date / Time acetaminophen [From TYLENOL] Allergy Severe HIVES Verified 12/06/22 09:12 ketorolac [From TORADOL] Allergy Severe SWELLING Verified 12/06/22 09:12 morphine Allergy Severe Hives Verified 12/06/22 09:12 Exam Exam Date and Time: December 05, 2022 115 Pertinent Lab Results Pertinent Lab Results: Laboratory Tests 11/30/22 11/30/22 11/30/22 08:12 08:12 14:49 WBC 9.9 Hgb 9.7 L Hct 31.2 L Plt Count 277 Sodium 142 Potassium 3.6 Chloride 111 H Carbon Dioxide 23 BUN 7 L Creatinine 0.71 Assessment and Plan Assessment Anesthesia Assessment: Chart Reviewed Documented by User: Armin Rodríguez MD 12/06/22 09:58 PMFSH Past Medical History Medical History (Updated 12/06/22 @ 09:11 by Berenice Boucher) Pancreatic insufficiency Right bundle branch block Patient : No Family History Family history of problems with anesthesia: No Surgical History Surgical History (Updated 12/06/22 @ 09:11 by Berenice Boucher) H/O tubal ligation History of section History of cholecystectomy History of Problems with Anesthesia: No Social History Social History Household Members: Family Alcohol intake: never Patient Tobacco Use Status: Never used Tobacco Tobacco use type: Cigarette e-Cigarette/Vaping Use: Former Use Use of substances other than those prescribed or required for medical reasons: No Are you DNR?: No Advance Directives: No Advance Directives Information Provided: Yes Meds Allergies Allergy/AdvReac Type Severity Reaction Status Date / Time acetaminophen [From TYLENOL] Allergy Severe HIVES Verified 12/06/22 09:12 ketorolac [From TORADOL] Allergy Severe SWELLING Verified 12/06/22 09:12 morphine Allergy Severe Hives Verified 12/06/22 09:12 Exam Airway Mallampati Class: II TM Dist: >3cm Neck ROM: Full Loose/Missing/Broken Teeth: No Heart: ok Lungs: ok Assessment and Plan Assessment Anesthesia Assessment: Anesthesia Plan Discussed Final Anesthetic Review Family History of Problems with Anesthesia: No History of Problems with Anesthesia: No NPO: Yes ASA Class: II Final Preanesthetic Review: No Changes in Pt Med Stat, Meds/Allgs Chart Reviewed, Consent Obtained/Reviewed and Anes Risks/Benef Reviewed Patient Risk: Intermediate Procedure Risk: Low Anesthetic Plan Anesthetic Plan: GA and Agree w/ Assess. and Plan Disposition: Standard PACU
[2022-12-06] VITALS (7 sets, daily range): BP systolic 119–139; BP diastolic 63–82; PULSE 75–95; RESP 14–17; TEMP 36.7–36.9; O2SAT 98–100; BMI 44.1
--- NOTE | 2022-12-06 09:44 | MHC.SHP ---
Pre-Procedural Eval Section A Date of Service: 12/06/22 The patient is an INPATIENT: No Changes since office visit: No Cold of Flu in the past 2 weeks, No New Medical Problems, No Changes in Medication and No Patient answered all questions The History & Physical has been completed within 30 days and I have reviewed it.: Yes Section B Chief Complaint: Abnormal uterine and vaginal bleeding, unspecified Allergies: Allergies Allergy/AdvReac Type Severity Reaction Status Date / Time acetaminophen [From TYLENOL] Allergy Severe HIVES Verified 12/06/22 09:12 ketorolac [From TORADOL] Allergy Severe SWELLING Verified 12/06/22 09:12 morphine Allergy Severe Hives Verified 12/06/22 09:12 Plan Diagnosis/Plan: Unchanged I have reviewed the history and physical and performed a pertinent physical examination on my patient. No changes have occurred unless specified. Time Spent With Patient Time: Total time managing care of this patient today ____ minutes.
[2022-12-06] MEDS: Lactated Ringers 1,000 ML 100 ML IVCONT (09:45)
[2022-12-06 09:54] LABS: UPreg QC Valid YES; Urine Pregnancy NEGATIVE (NEGATIVE)
--- NOTE | 2022-12-06 10:09 | PC.NURSE ---
Case postponed due to equipment malfunction. Jada Woo and Corrie OR nurse at bedside to give patient option of waiting until 1pm or coming back Sunday for procedure. Patient chooses to wait. Patient transferred to Pacu with a TV and partner allowed in to wait with patient. One cup of water given to patient, okayed per Dr. Fenton. Patient watching TV comfortably in stretcher. Call alvares within reach, PACU made aware. Will continue to monitor.
--- NOTE | 2022-12-06 13:30 | PM.OP ---
Brief Operative Note Date of Service: 12/06/22 Pre-op diagnosis: Abnormal uterine bleeding Post-op diagnosis: same Procedure: NovaSure Endometrial Ablation Surgeon: London Reeves MD Anesthesia: GLMA Was an Needle Process Felt Goods Supervisor used for this Procedure?: No Estimated blood loss (mL): 0 Pathology: none sent Condition: stable Disposition: PACU
--- NOTE | 2022-12-06 13:30 | W.PM.OPN ---
Operative Note Operative Note Date of Service: 12/06/22 Narrative: Preop diagnosis: Abnormal uterine bleeding Post Op Diagnosis: Same Op: Novasure Endometrial Ablation Anesthesia: GLMA Cardiology Associate: None QBL: Minimal Pathology: None Complications: None Procedure: The patient was put in the dorsal lithotomy position. She was prepped and draped in the usual sterile manner. Bimanual exam prior to prepping revealed a mobile, anteverted uterus. A speculum was placed in the vagina and the anterior lip of the cervix was grasped with a single toothed tenaculum and brought forward. Taking care not to enter deep into the uterus, a sound was passed inside to measure the length of the uterus and cervix. This length was found to be 8 cm. Next, Hegar dilator was inserted into the cervical os to measure the cervical length which was 3 cm. This yielded an endometrial cavity length of 6.5 cm. A series of Hegar dilators were then inserted sequentially into the cervical os up to a size of 5 mm. The Novasure device was then opened and tested; the fan deployed easily. The instrument was set to the correct cavity length and introduced into the uterine cavity. The fan was slowly deployed with gentle movements to ensure a snug fit within the cavity. The cavity width read 4.5 cm. The measurements were imported and a cavity check was done. The trumpet was then slid down to the cervix and the device was activated. The total burn time was 91 seconds. The fan was retracted and device removed. The fan was examined and revealed charred tissue. The tenaculum was removed and the cervix examined for hemostasis which was achieved using pressure. Finally the speculum was removed. The patient tolerated the procedure well and was brought to the recovery room in a stable condition. At the end of the procedure all sponges and instruments were counted and correct. The blood loss was minimal and there were no complications.
[2022-12-06] MEDS: oxyCODONE HCl Immed Release 5 MG TABLET PO (13:46)
== END 2022-12-06 15:22 | disposition home or self-care (01) ==
PROVIDERS: PCP Family Medicine; Visit Provider Obstetrics & Gynecology
PROC: (CPT 58353; principal; 2022-12-06 13:00)
DX: N93.9 Abnormal uterine and vaginal bleeding, unspecified (principal); K86.89 Other specified diseases of pancreas; I45.10 Unspecified right bundle-branch block; Z98.51 Tubal ligation status; Z90.49 Acquired absence of other specified parts of digestive tract; Z88.5 Allergy status to narcotic agent; Z88.8 Allergy status to other drugs, medicaments and biological substances
CPT/HCPCS: 58353; 81025; J2405; J3010

== ENCOUNTER → 2022-12-06 08:46 | Outpatient (BNV) | payer MEDICAID, SELFPAY | PROVIDERS: PCP Family Medicine; Visit Provider Obstetrics & Gynecology | DX: N93.9 Abnormal uterine and vaginal bleeding, unspecified (principal) | CPT/HCPCS: 58563 ==

== ENCOUNTER 2022-12-27 10:19 | Outpatient (REF) | payer MEDICAID, SELFPAY | END 2022-12-27 10:20 | disposition home or self-care (01) | LOC: HO.LNP 10:19 | PROVIDERS: PCP Family Medicine; Visit Provider Obstetrics & Gynecology | DX: N93.9 Abnormal uterine and vaginal bleeding, unspecified (principal); N39.0 Urinary tract infection, site not specified; N76.0 Acute vaginitis; B96.89 Other specified bacterial agents as the cause of diseases classified elsewhere; R35.0 Frequency of micturition; Z98.890 Other specified postprocedural states | CPT/HCPCS: 81002; 87086; 99212 ==

== ENCOUNTER 2022-12-27 10:19 | Outpatient (AMB) | payer MEDICAID, SELFPAY ==
--- NOTE | 2022-12-27 10:31 | MHC.OFFVIS ---
Intake Vital Signs 12/27/22 10:35 Height 5 ft 3 in Weight 253 lb BMI 44.8 Intake Visit Reasons: post op Heat Seal Operator Required: No Information Interpreted: non-clinical & clinical Accompanied by: Self / Same As Patient Allergies acetaminophen [From TYLENOL] Allergy (Severe, Verified 12/27/22 10:35) HIVES ketorolac [From TORADOL] Allergy (Severe, Verified 12/27/22 10:35) SWELLING morphine Allergy (Severe, Verified 12/27/22 10:35) Hives HPI HPI Comments History of Present Illness Details The patient is presenting post Novasure Endometrial Ablation, minimal vaginal bleeding , no feverishness chills or abdominal pain. The patient is complaining of urinary frequency and vaginal discharge with odor, no itching PFSH Medical History Pancreatic insufficiency Right bundle branch block Surgical History H/O tubal ligation History of section History of cholecystectomy Social History Household Members: Family Alcohol intake: never Patient Tobacco Use Status: Never used Tobacco Tobacco use type: Cigarette e-Cigarette/Vaping Use: Former Use Review of Systems Const All systems reviewed & are unremarkable except as noted in HPI and below Reports as per HPI and Reports no additional complaints GI Reports no additional complaints Reports no additional complaints Physical Exam Vital Signs: BMI result Body Mass Index 44.8 Other: The patient declined Assessment & Plan Assessment & Plan (1) Abnormal uterine bleeding (AUB): Comment: Status post NovaSure endometrial ablation Code(s): N93.9 - Abnormal uterine and vaginal bleeding, unspecified Plan: Discussed with the patient Novasure endometrial ablation intraoperative findings. In addition, discussed with the patient the expectations in the post operative period. Instruction given to patient to wait 2- 3 months and call if her menses are not satisfactory. Also discussed with the patient that although NovaSure endometrial ablation decreases the risk of , it is certainly not a method of control. All questions answered, the patient verbalized understanding and all questions answered . (2) UTI (urinary tract infection): Code(s): N39.0 - Urinary tract infection, site not specified Plan: Urine dip showed microscopic hematuria and leukocytes, will send urine for culture treat with Macrobid 100 mg p.o. b.i.d. for 5 days. Instructions given the patient to call if symptoms not improved within 48 hours, fever above 100.4, nausea or vomiting and flank pain. All questions answered, the patient verbalized understand (3) Bacterial vaginosis: Code(s): N76.0 - Acute vaginitis; B96.89 - Other specified bacterial agents as the cause of diseases classified elsewhere Plan: Will treat with Flagyl 500 mg p.o. b.i.d. x 7 days, Instructions given to the patient to refrain from sexual activity or to use condoms consistently and correctly during the BV treatment regimen, not to douch, it might increase the risk for relapse, and to call if symptoms persist or recur. Orders: Orders AMB Urinalysis Dipstick Today N39.0 - Urinary tract infection, site not specified Urine Culture Today R35.0 - Frequency of micturition Medications: New nitrofurantoin monohyd/m-cryst 100 mg (Macrobid) 100 mg PO BID 5 days 10 caps 0RF metronidazole 500 mg PO BID 7 days 14 tabs 0RF Coding Level of Care Code Est Pt Level 3 (78711) Diagnoses Abnormal uterine bleeding (AUB) N93.9 UTI (urinary tract infection) N39.0 Bacterial vaginosis N76.0; B96.89
[2022-12-27 10:35] VITALS: BMI 44.8
== END 2022-12-27 11:59 | disposition home or self-care (01) ==
PROVIDERS: PCP Family Medicine; Visit Provider Obstetrics & Gynecology
DX: N93.9 Abnormal uterine and vaginal bleeding, unspecified (principal); N39.0 Urinary tract infection, site not specified; N76.0 Acute vaginitis; B96.89 Other specified bacterial agents as the cause of diseases classified elsewhere
CPT/HCPCS: 99213

== ENCOUNTER 2023-04-11 14:40 | Outpatient (REF) | payer MEDICAID, SELFPAY ==
[2023-04-11 17:55] LABS: MANUAL DIFF FLAG NO
[2023-04-11 18:02] LABS: Basophils Percent Auto 0.3 % (0-2); Eosinophils Absolute Auto 0.1 X10*3/uL (0.0-0.4); Eosinophils Percent Auto 0.8 % (0-4); Hemoglobin 10.9 g/dl (12.0-16.0); Imm Gran Abs Auto 0.01 X10*3/uL (0.00-0.03); Imm Gran Pct Auto 0.1 % (0.0-0.4); Lymphocytes Absolute Auto 2.3 X10*3/uL (1.2-4.9); Lymphocytes Percent Auto 26.4 % (20-40); Mean Corpuscular HGB Conc 31.1 g/dl (31.0-35.0); Mean Corpuscular Hemoglobin 28.2 pg (27.0-33.0); Mean Corpuscular Volume 90.4 fL (80.0-98.0); Mean Platelet Volume 10.8 fL (9.4-12.3); Monocytes Absolute Auto 0.4 X10*3/uL (0.1-1.2); Monocytes Percent Auto 4.8 % (2-11); Neutrophils Percent Auto 67.6 % (45-73); Platelet Count 246 X10*3/uL (160-400); Red Blood Count 3.87 X10*6/uL (4.20-5.50); Red Cell Distribution Width 15.2 % (11.0-16.0); White Blood Count 8.8 X10*3/uL (4.8-10.8)
[2023-04-17 16:18] LABS: Venous Lead <1.0 mcg/dL (<3.5)
== END 2023-04-11 14:41 | disposition home or self-care (01) ==
LOC: HO.CHCLDS 14:40
PROVIDERS: Visit Provider Family Medicine
DX: Z77.011 Contact with and (suspected) exposure to lead (principal)
CPT/HCPCS: 36415; 83655; 85025

== ENCOUNTER 2023-07-19 10:39 | Outpatient (REF) | payer MEDICAID, SELFPAY ==
[2023-07-19 14:06] LABS: MANUAL DIFF FLAG NO
[2023-07-19 14:18] LABS: Basophils Percent Auto 0.5 % (0-2); Eosinophils Absolute Auto 0.1 X10*3/uL (0.0-0.4); Eosinophils Percent Auto 0.9 % (0-4); Hematocrit 36.8 % (37.0-47.0); Imm Gran Abs Auto 0.02 X10*3/uL (0.00-0.03); Imm Gran Pct Auto 0.3 % (0.0-0.4); Lymphocytes Absolute Auto 1.9 X10*3/uL (1.2-4.9); Lymphocytes Percent Auto 24.2 % (20-40); Mean Corpuscular HGB Conc 32.6 g/dl (31.0-35.0); Mean Corpuscular Hemoglobin 30.9 pg (27.0-33.0); Mean Corpuscular Volume 94.8 fL (80.0-98.0); Monocytes Absolute Auto 0.3 X10*3/uL (0.1-1.2); Monocytes Percent Auto 3.8 % (2-11); Neutrophils Absolute Auto 5.6 x10*3/uL (2.0-8.3); Neutrophils Percent Auto 70.3 % (45-73); Platelet Count 243 X10*3/uL (160-400); Red Blood Count 3.88 X10*6/uL (4.20-5.50); Red Cell Distribution Width 14.6 % (11.0-16.0); White Blood Count 7.9 X10*3/uL (4.8-10.8)
[2023-07-19 15:00] LABS: Alanine Aminotransferase 7 U/L (0-31); Albumin Level 4.2 g/dL (3.5-5.0); Alkaline Phosphatase 66 U/L (39-117); Anion Gap 16 (12-20); Aspartate Amino Transferase 13 U/L (5-31); Bilirubin Total 0.8 mg/dL (0.0-1.0); Blood Urea Nitrogen 8 mg/dL (9-16); Calcium 9.6 mg/dL (8.4-10.2); Carbon Dioxide 20 mmol/L (22-29); Chloride 106 mmol/L (96-108); Cholesterol 162 mg/dL (<200); Estimated Glomerular Filt Rate > 60; Glucose Random 81 mg/dL (60-115); HDL Cholesterol 59 mg/dL (>40); LDL Cholesterol Calculated 92 mg/dL (<100); Potassium 3.5 mmol/L (3.3-5.1); Sodium 138 mmol/L (135-145); Total Protein 7.9 g/dL (6.5-8.0); Triglycerides 57 mg/dL (<150)
[2023-07-19 15:07] LABS: TSH reflex Free T4 1.07 uIU/mL (0.32-4.0)
[2023-07-20 08:35] LABS: HBc Num1 0.15 S/CO (0.00-0.79); Hepatitis B Core Antibody Nonreactive (Nonreactive)
[2023-07-20 09:05] LABS: HBS Num1 123.62 mIU/mL (0-7.99); HBsAGNum1 0.35 S/CO (0.00-0.99); Hepatitis B Surface Antigen Negative (Negative); ~Hepatitis B Surface Antibody REACTIVE (Nonreactive)
== END 2023-07-19 10:40 | disposition home or self-care (01) ==
LOC: HO.CHCLDS 10:39
PROVIDERS: Visit Provider Family Medicine
DX: E66.01 Morbid (severe) obesity due to excess calories (principal)
CPT/HCPCS: 36415; 80053; 80061; 84443; 85025; 86704; 86706; 87340

== ENCOUNTER 2023-09-12 09:52 | Outpatient (REF) | payer MEDICAID, SELFPAY ==
--- NOTE | ~2023-09-12 | MM_ITS ---
EXAMINATION: MM SCREENING DIGITAL BREAST TOMOSYNTHESIS, BILATERAL CLINICAL INFORMATION: Screening. Asymptomatic. COMPARISON: Mammography: This study is compared with prior exams dating back to 2022. TECHNIQUE: Digital breast tomosynthesis is performed in both the craniocaudal and mediolateral oblique views along with computer-aided detection (CAD). Synthesized 2D images are generated from the tomosynthesis. FINDINGS: There are scattered areas of fibroglandular density (ACR BI-RADS breast composition Category b). There are no significant masses, abnormal calcifications, or other abnormalities. MM/MM tomosynthesis screening BI IMPRESSION: No mammographic evidence of malignancy. ASSESSMENT: BI-RADS BI-RADS 1 - Negative RECOMMENDATION: Routine annual mammography screening. 1 year F/U This examination should not preclude the clinical evaluation of a suspicious palpable abnormality. This patient's information was entered into a reminder system with a target due date for their next mammogram.
== END 2023-09-12 09:53 | disposition home or self-care (01) ==
LOC: HO.MAMMO 09:52
PROVIDERS: PCP Family Medicine; Visit Provider Family Medicine
DX: Z12.31 Encounter for screening mammogram for malignant neoplasm of breast (principal)
CPT/HCPCS: 77063; 77067

== ENCOUNTER → 2023-09-12 10:15 | Outpatient (BNV) | payer MEDICAID, SELFPAY | PROVIDERS: PCP Family Medicine; Visit Provider Radiology Diagnostic Radiology | DX: Z12.31 Encounter for screening mammogram for malignant neoplasm of breast (principal) | CPT/HCPCS: 77063; 77067 ==

== ENCOUNTER 2024-01-02 09:18 | Outpatient (AMB) | payer MEDICAID, SELFPAY ==
--- NOTE | 2024-01-02 09:22 | A.OFFVIS_ITS ---
Vital Signs 01/02/24 09:27 Height 5 ft 3 in Weight 223 lb BMI 39.5 BP 110/70 Intake Visit Reasons: [facility] annual exam Allergies acetaminophen [From TYLENOL] Allergy (Severe, Verified 04/13/23 11:00) HIVES ketorolac [From TORADOL] Allergy (Severe, Verified 04/13/23 11:00) SWELLING morphine Allergy (Severe, Verified 04/13/23 11:00) Hives HPI Comments Details: Presenting for annual exam. Complaining of right labial lesion was in a lot of irritation Last Pap/HPV was negative in 11/08 Last Mammogram was BI-RADS 1 in 09/09 [facility]LY [facility] Medical History Pancreatic insufficiency Right bundle branch block Surgical History History of endometrial ablation H/O tubal ligation History of section History of cholecystectomy Social History Household Members: Family Housing: House Alcohol intake: never Patient Tobacco Use Status: Former Tobacco user Tobacco use type: Cigarette Years Smoked: 15 e-Cigarette/Vaping Use: Former Use Current occupational status: student Sexually active: Yes Sexual orientation: Straight/Heterosexual Gender identity: Female Female Reproductive History Menstrual Total pregnancies: 2 Full term: 2 Number of Living Children: 2 Date of last pap smear: 11/03/22 Date of Mammogram: 09/12/23 Review of Systems Const All systems reviewed & are unremarkable except as noted in HPI and below Card Reports as per HPI Resp Reports as per HPI GI Reports as per HPI and Reports no additional complaints Reports as per HPI Physical Exam Vital Signs: BMI result Body Mass Index 39.5 Const General: cooperative, healthy appearing and comfortable Chest Chest palpation & inspection: normal inspection of the chest and normal palpation of entire chest wall Breast/axilla inspection: normal inspection of the breasts and normal inspection of the axillae Breast/axilla palpation: normal palpation of the breasts, normal palpation of the axillae and no axillary lymphadenopathy Resp Effort & Inspection: normal respiratory effort Auscultation: clear to auscultation bilaterally Percussion: percussion normal Cardio Palpation: normal PMI Rate: regular rate Rhythm: regular rhythm Heart sounds: no murmurs and no rubs Peripheral pulses: Peripheral pulses 2+ throughout GI Inspection: Yes normal to inspection Palpation (GI): Soft to palpation, nontender, no guarding, not rigid and No hepatosplenomegaly present Percussion: Yes normal to percussion Auscultation: normal bowel sounds Rectal Exam - Female: deferred General: Yes bladder normal to palpation External Female Exam: lesion (Right labia majora 1.5 cm) Speculum Exam - Vagina: normal appearance of the vagina, normal palpation, normal vaginal discharge and not erythematous Speculum Exam - Cervix: normal appearance of the cervix and normal palpation Bimanual exam- vagina & uterus: normal bimanual exam, normal palpation, uterine size normal, bladder normal to palpation, consistency normal and normal palpation Bimanual Exam- Adnexa, other: normal adnexae, no masses and no tenderness Assessment & Plan Assessment & Plan (1) Well woman exam: Code(s): Z01.419 - Encounter for gynecological examination (general) (routine) without abnormal findings Category: Medical Plan: Cotesting not indicated this year. Instructions given to patient to schedule next screen Mammogram in 09/09. Counseled the patient about the recommended dietary allowance of 1000 mg of Calcium & 600 IU of vitamin D. The patient was instructed to perform monthly self-breast exams and to schedule an annual exam in a year; All questions answered and the patient verbalized understanding. Instructed the patient to schedule annual exam in a year (2) Labial lesion: Comment: Right labia majora Code(s): N90.89 - Other specified noninflammatory disorders of vulva and perineum Category: Medical Plan: Discussed with the patient the finding on pelvic exam right labia majora lesion, recommended excisional biopsy. Instructions given the patient to schedule an appointment for excisional biopsy. All questions answered, the patient verbalized understanding Coding Level of Care Code Est Pt Prev Care 40-64y(20283) Diagnoses Well woman exam Z01.419 Labial lesion N90.89
[2024-01-02 09:27] VITALS: BP 110/70; BMI 39.5
== END 2024-01-02 09:54 | disposition home or self-care (01) ==
PROVIDERS: PCP Family Medicine; Visit Provider Obstetrics & Gynecology
DX: Z01.419 Encounter for gynecological examination (general) (routine) without abnormal findings (principal); N90.89 Other specified noninflammatory disorders of vulva and perineum
CPT/HCPCS: 99396

== ENCOUNTER → 2024-01-02 09:18 | Outpatient (BNVA) | payer MEDICAID, SELFPAY | PROVIDERS: PCP Family Medicine; Visit Provider Obstetrics & Gynecology | DX: Z01.419 Encounter for gynecological examination (general) (routine) without abnormal findings (principal); N90.89 Other specified noninflammatory disorders of vulva and perineum | CPT/HCPCS: 99396 ==

== ENCOUNTER 2024-03-28 07:59 | Outpatient (REF) | payer MEDICAID, SELFPAY | END 2024-03-28 08:00 | disposition home or self-care (01) | LOC: HO.LNP 07:59 | PROVIDERS: PCP Family Medicine; Visit Provider Obstetrics & Gynecology | DX: N84.3 Polyp of vulva (principal); N90.89 Other specified noninflammatory disorders of vulva and perineum; N93.9 Abnormal uterine and vaginal bleeding, unspecified | CPT/HCPCS: 56605; 58100; 81025; 88305; 99212 ==

== ENCOUNTER 2024-03-28 07:59 | Outpatient (AMB) | payer MEDICAID, SELFPAY ==
--- NOTE | 2024-03-28 07:59 | A.OFFVIS_ITS ---
Vital Signs 03/28/24 08:04 Height 5 ft 3 in Weight 223 lb BMI 39.5 BP 116/70 Intake Visit Reasons: vulva biopsy Dinkey Engine Operator Required: No Information Interpreted: non-clinical & clinical Outdoor Guide: Outdoor Guide Present (Hermelinda Badillo FAITH) Accompanied by: Self / Same As Patient Allergies acetaminophen [From TYLENOL] Allergy (Severe, Verified 03/28/24 08:05) HIVES ketorolac [From TORADOL] Allergy (Severe, Verified 03/28/24 08:05) SWELLING morphine Allergy (Severe, Verified 03/28/24 08:05) Hives HPI Comments Details: Presenting for right vulvar lesion excisional biopsy complaining of right vulvar lesion irritation in addition to daily vaginaly spotting over the last few months no associated pelvic pain or pressure. Last co testing was in 11/08 was negative Last mammogram was in 09/09 was BI-RADS 1 [facility] Medical History Pancreatic insufficiency Right bundle branch block Surgical History History of endometrial ablation H/O tubal ligation History of section History of cholecystectomy Social History Household Members: Family Housing: House Alcohol intake: never Patient Tobacco Use Status: Former Tobacco user Tobacco use type: Cigarette Years Smoked: 15 e-Cigarette/Vaping Use: Former Use Current occupational status: student Sexual orientation: Straight/Heterosexual Gender identity: Female Review of Systems Const All systems reviewed & are unremarkable except as noted in HPI and below Physical Exam Vital Signs: Last Vital Signs BP 116/70 03/28/24 08:04 BMI result Body Mass Index 39.5 General: Yes no CVA tenderness External Female Exam: normal appearance of the urethra and other (2 cm labia majora lesion) Speculum Exam - Vagina: normal appearance of the vagina, normal palpation, no lesions and no masses Speculum Exam - Cervix: normal appearance of the cervix, normal palpation, no lesions, no masses and nontender Bimanual exam- vagina & uterus: normal bimanual exam, normal palpation, uterine size normal, normal palpation, uterine shape normal, No Cervical tenderness present and non-tender Bimanual Exam- Adnexa, other: normal adnexae Back/Spine/Pelvis Back: no CVA tenderness Office Procedures Endometrial Biopsy Details: The patient was counseled regarding the indication and benefits of endometrial sampling to rule out endometrial pathology including not limited to endometrial hyperplasia or endometrial cancer and others; The alternatives (Either do nothing vs. hysteroscopy D&C) & the risks were discussed with the patient including but not limited: pain, uterine perforation, bleeding, infection, possible injury to bladder, bowel, ureter, possible need for blood transfusion with all its possible risks. The patient verbalized understanding all questions answered and signed consent. Urine test done in the office was negative The patient was placed into the dorsal lithotomy position; a speculum was inserted in the vagina. Using aseptic technique for the procedure, the cervix was cleansed with Betadine. The anterior lip of the cervix was grasped with a single tooth tenaculum. The uterus was sounded to 7 cm with a 4 mm Pipelle was used. Tissues samples were obtained and placed in formalin, in a patient labeled container and sent to the pathology department. At the end of the procedure, there was minimal bleeding noted The patient tolerated the procedure well and was discharged in good condition with the following instructions: Nothing in the vagina until the bleeding stops. No sex until the bleeding stops, to call if any of the following occurs: fever (>100.4), flu-like symptoms, abdominal pain, heavy bleeding, four smelling vaginal discharge. The patient was instructed to schedule a Follow up appointment in 2 weeks to discuss pathology results of the biopsy and treatment options. This note was generated with a voice recognition program. Some errors may have been overlooked during the review of this note. Sometimes these errors may affect the content or meaning of a given sentence. 57765-Hnppjsjctja Biopsy DIRECTOR OF INTERCOLLEGIATE ATHLETICS Biopsy Before the procedure was started d/w patient the procedure, alternatives ( do nothing, medical rx), & all the risks associated with the procedure ( bleeding , infection, vulvar scarring, painful intercourse, injury to vessels, possible need for transfusion with all its risks) then patient signed the consent. Preop dx: Right labia majora lesion Op: Right labia majora lesion excision Post op: Same Anesthesia: Lidocaine 1% 3cc used Procedure: Using betadine the area was scrubbed and draped in the usual manner. 7 cc of lidocaine was used for anesthesia at the right labia majora lesion area. Using scissors and pickup the left vulvar lesion was excised, Vicryl was used to approximate the edges. Pressure was used for hemostasis The patient tolerated the procedure well. Discharge Instructions: The patient was instructed to schedule an appointment in 2 weeks for follow-up and to call if temp>100.4, area of the biopsy redness or pain, nausea/vomiting. This note was generated with a voice recognition program. Some errors may have been overlooked during the review of this note. Sometimes these errors may affect the content or meaning of a given sentence. 05934-Jendia of Vulva/Perineum Procedure code (CPT) selection complete Assessment & Plan Assessment & Plan (1) Labial lesion: Comment: Right labia majora Code(s): N90.89 - Other specified noninflammatory disorders of vulva and perineum Category: Medical Plan: Right labia majora lesion excisional biopsy done, see procedure (2) Abnormal uterine bleeding (AUB): Comment: Status post NovaSure endometrial ablation Code(s): N93.9 - Abnormal uterine and vaginal bleeding, unspecified Category: Medical Plan: Will order CBC, TSH, HCG, and pelvic ultrasound ordered. Discussed with the patient the different causes of abnormal bleeding including thyroid disorders, uterine and ovarian pathology, endometrial hyperplasia, carcinoma and other potential causes. Discussed with the patient the work up including CBC (to r/o anemia), TSH, pelvic Ultrasound, endometrial biopsy to r/o endometrial pathology. EMB done, see procedure note. All questions answered and the patient verbalized understanding. Instructed the patient to schedule an EMB follow-up appointment in 2 weeks. Orders: Orders AMB DIRECTOR OF INTERCOLLEGIATE ATHLETICS Biopsy Today N90.89 - Other specified noninflammatory disorders of vulva and perineum Complete Blood Count no Diff Today N93.9 - Abnormal uterine and vaginal bleeding, unspecified HCG Quantitative Today N93.9 - Abnormal uterine and vaginal bleeding, unspecified AMB Endometrial Biopsy Today N93.9 - Abnormal uterine and vaginal bleeding, un specified TSH reflex Free T4 Today N93.9 - Abnormal uterine and vaginal bleeding, unspecified US pelvic and transvaginal Today N93.9 - Abnormal uterine and vaginal bleeding, unspecified Coding Level of Care Code Est Pt Level 3 (40830) Procedure Only Diagnoses Labial lesion N90.89 Abnormal uterine bleeding (AUB) N93.9 CPT Codes Endometrial Biopsy - CPT: 82839-Onpzymgdebx Biopsy ([id number]) DIRECTOR OF INTERCOLLEGIATE ATHLETICS Biopsy - CPT: 41382-Tfzrzi of Vulva/Perineum ([id number])
[2024-03-28 08:04] VITALS: BP 116/70; BMI 39.5
== END 2024-03-28 08:54 | disposition home or self-care (01) ==
LOC: HO.HWS 07:59
PROVIDERS: PCP Family Medicine; Visit Provider Obstetrics & Gynecology
DX: N90.89 Other specified noninflammatory disorders of vulva and perineum (principal); N93.9 Abnormal uterine and vaginal bleeding, unspecified; Z32.02 Encounter for pregnancy test, result negative
CPT/HCPCS: 56605; 58100; 99213

== ENCOUNTER 2024-04-04 10:03 | Outpatient (REF) | payer MEDICAID, SELFPAY ==
--- NOTE | ~2024-04-04 | US_ITS ---
CLINICAL HISTORY: N93.9 - Abnormal uterine and vaginal bleeding, unspecified US pelvis transvaginal and transabdominal Comparison: None Findings: Transabdominal and transvaginal scanning performed. Transvaginal scanning performed to better evaluate the ovaries. Retroverted uterus is 8.8 cm length. Given uterine positioning the myometrium is not well evaluated transabdominally or transvaginally. In the lower uterine segment near the internal os there is a homogeneously hypoechoic structure measuring 2.1 x 2.3 x 2.2 cm which could be a fibroid or possibly clot within the endometrial canal. Endometrium approximately 5 mm thickness. Right ovary 2.4 x 3.1 x 2.4 cm. Left ovary 5.0 x 2.2 x 1.8 cm. Normal color Doppler of both ovaries. No free fluid. IMPRESSION: 1. Homogeneously hypoechoic material within the endometrium at the level of the internal os which could be hemorrhage or possibly a fibroid. No prior imaging available for comparison. Consider MRI of the pelvis with and without contrast. This document has been electronically signed by: Rani So MD on 04/05/2024 07:05:55
[2024-04-04 11:48] LABS: Hematocrit 35.5 % (37.0-47.0); Hemoglobin 11.8 g/dl (12.0-16.0); Mean Corpuscular HGB Conc 33.2 g/dl (31.0-35.0); Mean Corpuscular Hemoglobin 30.7 pg (27.0-33.0); Mean Corpuscular Volume 92.4 fL (80.0-98.0); Mean Platelet Volume 10.9 fL (9.4-12.3); Platelet Count 201 X10*3/uL (160-400); Red Blood Count 3.84 X10*6/uL (4.20-5.50); Red Cell Distribution Width 12.5 % (11.0-16.0); White Blood Count 6.3 X10*3/uL (4.8-10.8)
[2024-04-04 12:40] LABS: HCG Quantitative < 2 mIU/mL; TSH reflex Free T4 1.09 uIU/mL (0.32-4.0)
== END 2024-04-04 10:04 | disposition home or self-care (01) ==
LOC: HO.US 10:03
PROVIDERS: PCP Family Medicine; Visit Provider Obstetrics & Gynecology
DX: N93.9 Abnormal uterine and vaginal bleeding, unspecified (principal)
CPT/HCPCS: 36415; 76830; 76856; 84443; 84702; 85027

== ENCOUNTER → 2024-04-04 10:16 | Outpatient (BNV) | payer MEDICAID, SELFPAY | PROVIDERS: PCP Family Medicine; Visit Provider Radiology Diagnostic Radiology | DX: R93.5 Abnormal findings on diagnostic imaging of other abdominal regions, including retroperitoneum (principal) | CPT/HCPCS: 76830; 76856 ==

== ENCOUNTER 2024-04-16 09:29 | Outpatient (AMB) | payer MEDICAID, SELFPAY ==
--- NOTE | 2024-04-16 09:30 | A.OFFVIS_ITS ---
Intake Visit Reasons: EMB and biopsy results/ ultrasound results Instructor Hairspring: Instructor Hairspring Present (Yue) Accompanied by: Daughter Allergies acetaminophen [From TYLENOL] Allergy (Severe, Verified 04/16/24 09:30) HIVES ketorolac [From TORADOL] Allergy (Severe, Verified 04/16/24 09:30) SWELLING morphine Allergy (Severe, Verified 04/16/24 09:30) Hives HPI Comments Details: Presenting for ultrasound follow-up which showed the following: Retroverted uterus is 8.8 cm length. Given uterine positioning the myometrium is not well evaluated transabdominally or transvaginally. In the lower uterine segment near the internal os there is a homogeneously hypoechoic structure measuring 2.1 x 2.3 x 2.2 cm which could be a fibroid or possibly clot within the endometrial canal. Endometrium approximately 5 mm thickness. Right ovary 2.4 x 3.1 x 2.4 cm. Left ovary 5.0 x 2.2 x 1.8 cm. Normal color Doppler of both ovaries. No free fluid. 12/09 CT scan of abdomen and pelvis pelvic viscera portion of it showed the following: PELVIC VISCERA: A 2.5 cm follicle is evident in the left adnexa. The cervix is very prominent and is lower in density than the remainder of the uterus. There is a questionable filling defect within the endocervical canal. There is no free fluid in the cul-de-sac. EMB and vulvar excisional biopsy pathology showed the following: A. Endometrium, biopsy: - Fragments of inflamed endocervical tissue with reactive changes. - Definitive endometrial sampling identified. B. Vulva, right labia majora, excision: Fibroepithelial polyp. Comment: Consider resampling of the endometrium, as clinically appropriate H&H 11.8/35.5 TSH, hCG negative 11/08 co testing was negative 09/09 mammogram BI-RADS 1 [facility] Medical History Pancreatic insufficiency Right bundle branch block Surgical History History of endometrial ablation H/O tubal ligation History of section History of cholecystectomy Social History Household Members: Family Housing: House Alcohol intake: never Patient Tobacco Use Status: Former Tobacco user Tobacco use type: Cigarette Years Smoked: 15 e-Cigarette/Vaping Use: Former Use Current occupational status: student Sexual orientation: Straight/Heterosexual Gender identity: Female Review of Systems Const All systems reviewed & are unremarkable except as noted in HPI and below Reports as per HPI and Reports no additional complaints GI Reports no additional complaints Reports no additional complaints Assessment & Plan Assessment & Plan (1) Abnormal uterine bleeding (AUB): Comment: Status post NovaSure endometrial ablation Code(s): N93.9 - Abnormal uterine and vaginal bleeding, unspecified Category: Medical Plan: Discussed with the patient the results of the endometrial pathology showing no evidence of endometrial tissues and the finding on ultrasound and previous CT showing endocervical filling defect possibly related to previous NovaSure endometrial ablation, explained to the patient the endometrial pathology including endometrial hyperplasia and/or malignancy has not been ruled out yet. Will refer the patient to [facility] for further management. Instructed the patient to call our office back in case a referral appointment is not scheduled, missed or canceled so that we will assist on rescheduling another appointment, the patient verbalized understanding agreed with the plan. (2) Labial lesion: Comment: Right labia majora Code(s): N90.89 - Other specified noninflammatory disorders of vulva and perineum Category: Medical Plan: Discussed with the patient the results of pathology, the patient was reassured. All questions answered, the patient verbalized understanding. Coding Level of Care Code Est Pt Level 3 (51381) Diagnoses Abnormal uterine bleeding (AUB) N93.9 Labial lesion N90.89
--- OUTSIDE RECORDS SUMMARY | 2024-04-16 10:57 | XMS_ITS | Encounter Summary ---
Author Organization [employer] Address [address] 7 [place] [address] Care Team Providers Care Fire Engine Pump Operator Name Role Phone Susi Bolton MD Primary Care Provider [phone] Encounter Details Date Type Department Care Team ([facility] Contact Info) Description 04/14/2024 9:30 AM EST Telemedicine [facility] [address] [place], [place] [id number] Pavel Scott MD [address] [place] [address] Morbid obesity (CMS/HCC) (Primary Dx); Dietary counseling; Exercise counseling; Chronic right hip pain Social History Tobacco Use Types Packs/Day Years Used Date Smoking Tobacco: Former Cigarettes Passive Smoke Exposure: Never Smokeless Tobacco: Current Alcohol Use Standard Drinks/Week Comments Never 0 (1 standard drink = 0.6 oz pur e alcohol) Depression Answer Date Recorded Patient Health Questionnaire-9 Score 2 04/11/2023 Patient Health Questionnaire-9 Score 2 04/11/2023 Last PHQ-9: Questionnaire Data Not on file 0 04/11/2023 Housing Stability Answer Date Recorded What is your housing situation today? I have housing today, but I am worried about losing housing in the future 05/03/[address] you li ve. Do you have problems with any of the following? Mold;Lead [place] or Pipes;Water leaks 05/03/2023 Food Insecurity Answer Date Recorded Within the past 12 months, y ou worried that your food would run out before you got money to buy more: Never True 05/03/2023 Within the past 12 months,th e food you bought just didn't last and you didn't have enough money to get more: Never True Transportation Answer Date Recorded In the past 12 months, has l ack of transportation kept you from medical appts, meetings, work or from getting things needed for daily living? No 05/03/2023 Utilities Answer Date Recorded In the past 12 months, has t he electric, gas, oil or water company threatened to shut off services in your home? No 05/03/2023 Depression Answer Date Recorded Patient Health Questionnaire-2 Score 0 04/11/2023 Comments No Sex and Gender Information Value Date Recorded Sex Assigned at Female 01/16/2022 10:22 AM EDT Legal Sex Female 10:22 AM EDT Gender Identity Female 01/16/2022 10:22 AM EDT Sexual Orientation Straight 01/16/2022 10 :22 AM EDT documented as of this encounter Progress Notes * Pavel Correa MD - 04/14/2024 9:30 AM EST Subjective Patient ID: Cristiane Silva is a 43 y.o. female who presents for No chief complaint onfile.. Hip Pain The incident occurred more than 1 week ago. The pain is present in the right hip. The quality of the pain is described as aching. Review of Systems Constitutional: Negative for chills and fever. Respiratory: Negative for cough and shortness of breath. Cardiovascular: Negative for chest pain and palpitations. Gastrointestinal: Negative for abdominal distention, abdominal pain, anal bleeding, blood in stool and constipation. Objective Physical Exam Neurological: General: No focal deficit present. Mental Status: She is oriented to person, place, and time. Psychiatric: Mood and Affect: Mood normal. Behavior: Behavior normal. Assessment/Plan Problem List Items Addressed This Visit Morbid obesity (CMS/HCC) - Primary Will make the switch to zepbound, she was on 2.4mg but refers having nausea/fatigue, will switch tothe lowest dose of zepbound, call back if any side effects developed Chronic right hip pain Will prescribe ibuprofen, labs reviewed, risk vs benefits discussed Other Visit Diagnoses Dietary counseling Exercise counseling documented in this encounter Plan of Treatment Upcoming Encounters Date Type Department Care Team (Late st Contact Info) Description 06/05/2024 8:30 AM EDT Office Visit [facility] [address] [place] [address] Pavel Scott MD [address] [place] [address] documented as of this encounter Visit Diagnoses Diagnosis Morbid obesity (CMS/HCC)- Primary Morbid obesity Dietary counseling Dietary surveillance and counseling Exercise counseling Chronic right hip pain documented in this encounter Additional Health Concerns Assessment Noted Time PHQ-9 Depression Total Score: 2 04/11/19 24 2:02 PM EST documented as of this encounter Care Teams Fire Engine Pump Operator Relationship Specialty Start Date End Date Susi Bolton MD [address] [place] [id number] PCP - General Family Medicine 07/29/21 documented as of this encounter
--- OUTSIDE RECORDS SUMMARY | 2024-04-16 10:57 | XMS_ITS | Encounter Summary ---
Author Organization [employer] Address [address] [place] [address] Care Team Providers Care Driver Utility Worker Name Role Phone Susi Bolton MD Primary Care Provider [phone] Encounter Details Date Type Department Care Team (Latest Contact Info) Description 04/14/2024 Travel Social History Tobacco Use Types Packs/Day Years [...] problems with any of the following? Mold;Lead [place] or Pipes;Water leaks 05/03/2023 Food Insecurity Answer [...] AM EDT documented as of this encounter Plan of Treatment Upcoming Encounters Date Type Department Care Team (Late st Contact Info) Description 06/05/2024 8:30 AM EDT Office Visit [facility] [address] [place] [address] Pavel Scott MD [address] [place] [address] documented as of this encounter Visit Diagnoses Not on filedocumented in this encounter Additional Health Concerns Assessment Noted Time PHQ-9 Depression Total Score: 2 04/11/19 24 2:02 PM EST documented as of this encounter Care Teams Driver Utility Worker Relationship Specialty Start Date End Date Susi Bolton MD [address] [place] [address] PCP - General Family Medicine 07/29/21 documented as of this encounter
--- OUTSIDE RECORDS SUMMARY | 2024-04-16 10:58 | XMS_ITS | Encounter Summary ---
Author Organization [employer] Address [address] [facility] 7[address] [place] [address] Care Team Providers Care Bar Host/Hostess Name Role Phone Susi Bolton MD Primary Care Provider [phone] Encounter Details Date Type Department Care Team (Late st Contact Info) Description 03/28/2024 Orders Only GENERIC EXTERNAL DATA DEPARTMENT Provider, Generic External Data Social History Tobacco Use Types Packs/Day Years [...] problems with any of the following? Mold;Lead [place] or Pipes;Water leaks 05/03/2023 Food Insecurity Answer [...] Description 06/05/2024 8:30 AM EDT Office Visit [facility]EDS [address] [place], [place] [phone] Pavel Scott MD [address] [place], [place] [phone] documented as of this encounter Procedures Procedure Name Priority Date/Time Associated Diagnosis Comments US PELVIS TRANSVAGINAL Routine 04/05/2024 7:05 AM EST TSH W/REFLEX TO FT4 Routine 04/04/2024 1 1:10 AM EST CBC Routine 04/04/2024 11:10 AM EST HCG, TOTAL, QN Routine 04/04/2024 11:10 AM EST HEMATOXYLIN AND EOSIN STAIN Routine 03/28/2024 8:15 AM EST documented in this encounter Results * US Pelvis Transvaginal (04/05/2024 7:05 AM EST) Anatomical Region Laterality Modality Pelvis Ultrasound 04/05/2024 7:05 AM EST Narrative 04/05/2024 7:07 AM EST ? [facility] ?[address] ?[place] [address] ? Ultrasound Report ? Signed ? Patient: Mandy,Cristiane ? MR#: [id number] ? : 1980 ?Acct:[id number] ? Age/Sex: 43 / F ?ADM Date: 01/17/25 ? Loc: HO.US ? Attending Dr: London Reeves MD ? Ordering Physician: London Reeves MD ?? Date of Service: 04/04/24 ?? Procedure(s): US pelvic and transvaginal ?? Accession Number(s): [id number] ? cc: Susi Bolton MD; London Reeves MD ? CLINICAL HISTORY: N93.9 - Abnormal uterine and vaginal bleeding, unspecified ? US pelvis transvaginal and transabdominal ? Comparison: None ? Findings: ?? Transabdominal and transvaginal scanning performed. Transvaginal scanning ?? performed to better evaluate the ovaries. ? Retroverted uterus is 8.8 cm length. ?? Given uterine positioning the myometrium is not well evaluated ?? transabdominally or transvaginally. In the lower uterine segment near the ?? internal os there is a homogeneously hypoechoic structure measuring 2.1 x ?? 2.3 x 2.2 cm which could be a fibroid or possibly clot within the ?? endometrial canal. ?? Endometrium approximately 5 mm thickness. ? Right ovary 2.4 x 3.1 x 2.4 cm. ?? Left ovary 5.0 x 2.2 x 1.8 cm. ?? Normal color Doppler of both ovaries. ? No free fluid. ? IMPRESSION: ?? 1. Homogeneously hypoechoic material within the endometrium at the level ?? of the internal os which could be hemorrhage or possibly a fibroid. No ?? prior imaging available for comparison. Consider MRI of the pelvis with ?? and without contrast. ? This document has been electronically signed by: Rani So MD on ?? 04/05/2024 07:05:55 ? Dictated By: ?Rani So MD ? Signed By: ?<Electronically signed by Rani So MD in OV> ?04/05/24 0706 ? DD/ 0705 ? TD/TT: 04/05/24 0705 ? Tissue Technologist: ? Procedure Note Amaris Serna - 04/05/2024 [facility] [address] [place] [address] Ultrasound Report Signed Patient: Cristiane Galvan MR#: [id number] : 1980Acct:[id number] Age/Sex: 43 / FADM Date: 04/04/24 Loc: HO.US Attending Dr: London Reeves MD Ordering Physician: London Reeves MD Date of Service: 04/04/24 Procedure(s): US pelvic and transvaginal Accession Number(s): [id number] cc: Susi Bolton MD; London Reeves MD CLINICAL HISTORY: N93.9 - Abnormal uterine and vaginal bleeding,unspecified US pelvis transvaginal and transabdominal Comparison: None Findings: Transabdominal and transvaginal scanning performed. Transvaginal scanning performed to better evaluate the ovaries. Retroverted uterus is 8.8 cm length. Given uterine positioning the myometrium is not well evaluated transabdominally or transvaginally. In the lower uterine segment near the internal os there is a homogeneously hypoechoic structure measuring 2.1 x 2.3 x 2.2 cm which could be a fibroid or possibly clot within the endometrial canal. Endometrium approximately 5 mm thickness. Right ovary 2.4 x 3.1 x 2.4 cm. Left ovary 5.0 x 2.2 x 1.8 cm. Normal color Doppler of both ovaries. No free fluid. IMPRESSION: 1. Homogeneously hypoechoic material within the endometrium at the level of the internal os which could be hemorrhage or possibly a fibroid. No prior imaging available for comparison. Consider MRI of the pelvis with and without contrast. This document has been electronically signed by: Rani So MD on 04/05/2024 07:05:55 Dictated By: Rani So MD Signed By: <Electronically signed by Rani oS MD in OV> 04/05/24 0706 DD/ 0705 TD/TT: 04/05/24 0705 Tissue Technologist: [facility] External Provider IMG US PROCEDURES Final Result * hCG, Total, Quantitative (04/04/2024 11:10 AM EST) HCG Quantitative <2 mIU/mL [facility] Comment:Weeks post LMP Appro ximate hCG(Last Menstrual Period) Range (mIU/ml)3 - 4 weeks 9 - 1304 - 5 weeks 75 - 2,6005 - 6 weeks 850 - 20,8006 - 7 weeks 4000 - 100,2007 - 12 weeks 11,500 - 289,76250 - 16 weeks 18,300 - 137,96068 - 29 weeks (2nd trimester) 1,400 - 53,64369 - 41 weeks (3rd trimester) 940 - 60,000The Tabor B- hCG assay is used for the early detection ofpregnancy; it cannot be used to diagnose any conditionunrelated to . If a B-hCG level is not supportedby the clinical evidence, results should be confirmed by analternative method (qualitative urine hCG, for example). 04/04/2024 11:1 0 AM EST 04/04/2024 11:16 AM EST Generic External Data Provider LAB BLOOD ORDERAB LES Final Result Performing Organization Address [facility] Co de Phone Number [facility] [address] [place] [phone] * TSH with Reflex to Free T4 (04/04/2024 11:10 AM EST) TSH reflex Free T4 1.09 0.32 - 4.0 uIU/mL [facility] 04/04/2024 11:1 0 AM EST 04/04/2024 11:16 AM EST Generic External Data Provider LAB BLOOD ORDERAB LES Final Result Performing Organization Address [facility] Co de Phone Number [facility] [address] [place] [address] [phone] * (ABNORMAL) CBC (04/04/2024 11:10 AM EST) White Blood Count 6.3 4.8 - 10.8 X10*3/uL [facility] Red Blood Count 3.84(L) 4.20 - 5.50 X10*6/uL [facility] Hemoglobin 11.8(L) 12.0 - 16.0 g/dl [facility] Hematocrit 35.5(L) 37.0 - 47.0 % [facility] Mean Corpuscular Volume 92.4 80.0 - 98.0 fL [facility] Mean Corpuscular Hemoglobin 30.7 27.0 - 33.0 pg [facility] Mean Corpuscular HGB Conc 33.2 31.0 - 35.0 g/dl [facility] Red Cell Distribution Width 12.5 11.0 - 16.0 % [facility] Platelet Count 201 160 - 400 X10*3/uL [facility] Mean Platelet Volume 10.9 9.4 - 12.3 fL [facility] NRBC Pct Auto 0.0 0.0 - 0.2 /100WBC [facility] NRBC Abs Auto 0.000 0.0 - 0.012 X10*3/uL [facility] 04/04/2024 11:1 0 AM EST 04/04/2024 11:16 AM EST us Generic External Data Provider LAB BLOOD ORDERAB LES Final Result Performing Organization Address City/State/[facility] Co de Phone Number [facility] [address] [place] [phone] * Hematoxylin and Eosin Stain (03/28/2024 8:15 AM EST) 03/28/2024 8:15 AM EST 03/28/2024 12:03 PM EST Narrative [facility] - 04/01/2024 11:59 AM EST ----- ------- Name: Cristiane Galvan ? Age/Sex: 43/F ? : 1980 Unit#: [id number] ?? Attend Dr: London Reeves MD ?Re03/28/24 ?Status: DEP REF ? Location: HO.LNP ?Disch: ? ----- ------- SPEC : [id number] ?RECD: 03/28/24-1202 ? STATUS: ??SOUT ? REQ NUM: [id number] ? BRITTANEY: 03/28/24 ? SUBM DR: London Reeves MD ? ENTERED: ??03/28/24 ?SP TYPE: Surgical ? OTHR DR: Susi Bolton MD ? ORDERED: ??HE Stain/5, Gross Micro L4/2 ? Diagnosis ?? A. ??Endometrium, biopsy: ?- Fragments of inflamed endocervical tissue with reactive changes. ?- Definitive endometrial sampling identified. ? B. 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 ? Comment: ??Consider resampling of the endometrium, as clinically appropriate. ?Clinical History AUB/labia lesion ?Microscopic Description A, B. ??Microscopic sections reviewed. ? Material Received ?? A. EMB ?? B. Right labia majora lesion ? Gross Description Received in 2 parts. A. ??Received in formalin labeled ?EMB? are fragments of red-rodriguez soft tissue mixed with mucus and clotted blood forming an aggregate measuring 2.1 x 1.9 x 0.3 cm which is wrapped in lens paper and entirely submitted for microscopic examination, multiple pieces in cassette A. B. Received in formalin labeled ?right labia majora lesion? is a polypoid portion of rodriguez, hair-bearing skin measuring 1.5 x 1.4 x 0.8 cm. ??The skin surface is wrinkled. ??The base of the specimen shows a resection site measuring 0.4 cm in diameter that is pink white in color. ??The resection site is inked blue. ??The specimen is serially sectioned revealing a smooth, yellow-white cut surface. ??The specimen is entirely submitted for microscopic examination, 4 pieces in cassette B. ??smc This case was reviewed intradepartmentally (A) ? CONTINUED ON NEXT PAGE ----- ------- Name: Cristiane Galvan ? Age/Sex: 43/F ? : 1980 Unit#: [id number] ?? Attend Dr: London Reeves MD ?Re03/28/24 ?Status: DEP REF ? Location: HO.LNP ?Disch: ? ----- ------- SPEC : [id number] ?RECD: 03/28/24-1202 ? STATUS: ??SOUT ? REQ NUM: [id number] ? BRITTANEY: 03/28/24 ? SUBM DR: London Reeves MD ? ENTERED: ??03/28/24-4 ?SP TYPE: Surgical ? OTHR DR: Susi Bolton MD ? ORDERED: ??HE Stain/5, Gross Micro L4/2 ? Copies To: ?? Susi Bolton MD ?? [address] ?? [place] [address] ?? [phone] ?? London Reeves MD ?? [facility] ?? [address] [facility] [facility] [address] ?? [place] [address] ?? [phone] ----- ------- Signed (signature on file) Toi Weathers MD 04/01/24 1159 ? ----- ------- ? END OF REPORT ? us Generic External Data Provider LAB BLOOD ORDERAB LES Final Result [facility] [address] [place] [phone] documented in this encounter Visit Diagnoses Not on filedocumented in this encounter Additional Health Concerns Assessment Noted Time PHQ-9 Depression Total Score: 2 04/11/19 24 2:02 PM EST documented as of this encounter Care Teams Bar Host/Hostess Relationship Specialty Start Date End Date Susi Bolton MD [address] [place] [address] PCP - General Family Medicine 07/29/21 documented as of this encounter
--- OUTSIDE RECORDS SUMMARY | 2024-04-16 10:59 | XMS_ITS | Encounter Summary ---
Author Organization [employer] Address [address] [facility] 7[address] [place] [address] Care Team Providers Care Log Manager Name Role Phone Susi Bolton MD Primary Care Provider [phone] Reason for Visit * Reason Comments Med Refill Encounter Details Date Type Department Care Team ([facility] Contact Info) Description 10/23/2023 Refill [facility] MED & PEDS [address] [place] [address] Susi Bolton MD [address] [place] [address] Social History Tobacco Use Types Packs/Day Years [...] problems with any of the following? Mold;Lead [place] or Pipes;Water leaks 05/03/2023 Food Insecurity Answer [...] Description 06/05/2024 8:30 AM EDT Office Visit [facility] MED & PEDS [address] [place] [address] Pavel Scott MD [address] [place] [address] documented as of this encounter Visit Diagnoses Not on filedocumented in this encounter Additional Health Concerns Assessment Noted Time PHQ-9 Depression Total Score: 2 04/11/19 24 2:02 PM EST documented as of this encounter Care Teams Log Manager Relationship Specialty Start Date End Date Susi Bolton MD [address] [place] [phone] PCP - General Family Medicine 07/29/21 documented as of this encounter
--- OUTSIDE RECORDS SUMMARY | 2024-04-16 10:59 | XMS_ITS | Encounter Summary ---
Author Organization [employer] Address [address] [facility] 7[address] [place] [address] Care Team Providers Care Health Promotion Officer Name Role Phone Susi Bolton MD Primary Care Provider [phone] Reason for Visit * Reason Comments Med Refill Encounter Details Date Type Department Care Team ([facility] st Contact Info) Description 12/25/2023 Refill [facility] [address] [place], [place] [phone] Wesley Ceballos, DMD [address] [place] [address] Social History Tobacco Use Types Packs/Day Years [...] problems with any of the following? Mold;Lead [place] or Pipes;Water leaks 05/03/2023 Food Insecurity Answer [...] AM EDT documented as of this encounter Miscellaneous Notes * Telephone Encounter - Wesley Ceballos DMD - 12/26/2023 8:00 AM EDT Pt need to schedule the limited exam appointment with dentist for medication refill. Thanks documented in this encounter Plan of Treatment Upcoming Encounters Date Type Department Care Team (Late st Contact Info) Description 06/05/2024 8:30 AM EDT Office Visit [facility] [address] [place] [address] Pavel Scott MD [address] [place] [address] documented as of this encounter Visit Diagnoses Not on filedocumented in this encounter Additional Health Concerns Assessment Noted Time PHQ-9 Depression Total Score: 2 04/11/19 24 2:02 PM EST documented as of this encounter Care Teams Health Promotion Officer Relationship Specialty Start Date End Date Susi Bolton MD [address] [place] [address] PCP - General Family Medicine 07/29/21 documented as of this encounter
--- OUTSIDE RECORDS SUMMARY | 2024-04-16 10:59 | XMS_ITS | Encounter Summary ---
Author Organization [employer] Address [address] [facility] [address] [place] [address] Care Team Providers Care Metal Engraver Name Role Phone Susi Bolton MD Primary Care Provider [phone] Reason for Visit * Reason Comments Med Refill Encounter Details Date Type Department Care Team ([facility] st Contact Info) Description 12/27/2023 Refill [facility] [address] [place], [place] [phone] Wesley Ceballos, DMD [address] [place] [address] Social History Tobacco Use Types Packs/Day Years [...] problems with any of the following? Mold;Lead [place] or Pipes;Water leaks 05/03/2023 Food Insecurity Answer [...] Telephone Encounter - Wesley Ceballos DMD - 12/28/2023 7:57 AM EDT Approving, but needs appt for additional refills. documented in this encounter Plan of Treatment Upcoming Encounters Date Type Department Care Team (Late st Contact Info) Description 06/05/2024 8:30 AM EDT Office Visit [facility] MED & PEDS [address] [place] [address] Pavel Scott MD [address] [place] [address] documented as of this encounter Visit Diagnoses Not on filedocumented in this encounter Additional Health Concerns Assessment Noted Time PHQ-9 Depression Total Score: 2 04/11/19 24 2:02 PM EST documented as of this encounter Care Teams Metal Engraver Relationship Specialty Start Date End Date Susi Bolton MD [address] [place] [address] PCP - General Family Medicine 07/29/21 documented as of this encounter
--- OUTSIDE RECORDS SUMMARY | 2024-04-16 10:59 | XMS_ITS | Clinical Summary ---
Author Organization [employer] Address [address] [place] [address] Care Team Providers Care Qualitative Field Project Manager Name Role Phone Susi Bolton MD Primary Care Provider [phone] Allergies Active Allergy Reactions Criticality Noted Date Comments Acetaminophen 08/07/2013 Ketorolac Other reaction(s): swelling: rash Morphine Hives 07/06/2020 Nortriptyline Itching 10/20/2021 Medications amitriptyline (Elavil) 25 MG tablet Take 25 mg by mouth at bedtime. 10/21/19 22 Active cyanocobalamin (Vitamin B-12) 1000 MCG tablet Take 1,000 mcg by mouth in the morning. 02/08/20 22 Active dicyclomine (Bentyl) 20 MG tablet Take 20 mg by mouth 4 times daily. 11/10/19 22 Active famotidine (Pepcid) 40 MG tablet Take 40 mg by mouth at bedtime. 01/03/20 22 Active Creon 6000-54244 units capsule TAKE 1 CAPSULE BY MOUTH FOUR TIMES DAILY BEFORE A MEAL. DO NOT EXCEED 07718 UNIT / KG LIPASE PER 24 HOURS 02/01/20 22 Active Citrucel 500 MG tablet TAKE 1 TABLET BY MOUTH DAILY WITH FULL GLASS OF WATER 01/04/20 22 Active nortriptyline (Pamelor) 50 MG capsule Take 50 mg by mouth 3 times daily. 09/24/19 22 Active ferrous gluconate (Fergon) 324 (38 Fe) MG tabletIndicatio ns:Anemia, unspecified type Take 1 tablet (324 mg) by mouth with breakfast. 90 tablet 1 07/05/19 23 Active medroxyPROGESTE Aston (Provera) 10 MG tablet Take 2 tablets (20 mg) by mouth 3 times daily for 7 days. 42 tablet 10/31/19 23 Active baclofen (Lioresal) 10 MG tablet Take 1 tablet (10 mg) by mouth 3 times daily for 10 days. 30 tablet 04/17/19 24 Active Diclofenac Sodium 1 % gel APPLY 2 GRAMS TOPICALLY FOUR TIMES DAILY TO AFFECTED AREAS 100 g 04/17/19 24 Active phentermine (Adipex-P) 37.5 MG tabletIndicatio ns:Morbid obesity (CMS/HCC) Take 0.5 tablets (18.75 mg) by mouth before breakfast. 14 tablet 2 05/30/19 24 Active topiramate (Topamax) 50 MG tablet Take 50 mg by mouth at bedtime. 90 tablet 1 06/21/19 24 Active polyethylene glycol, PEG, 3350 (MiraLax) 17 GM/SCOOP powder Take 17 g by mouth Once per day. 527 g 2 09/21/19 24 Active cholecalciferol VITAMIN D (Vitamin D-3) 50 MCG (2000 UT) capsule Take 1 capsule (50 mcg) by mouth Once per day. 120 capsule 3 11/21/19 24 Active chlorhexidine (Peridex) 0.12 % solution SWISH AND SPIT WITH 15ML BY MOUTH NEEDED IN THE MORNING, NOON AND AT BEDTIME FOR UP TO 5 DAYS 473 mL 12/28/19 24 Active Semaglutide-[facility] ght Management (Wegovy) 2.4 MG/0.75ML solution auto-injector Inject 0.75 mL (2.4 mg) under the skin 1 (one) time per week. 3 mL 3 03/07/20 24 Active Tirzepatide-Simon ght Management (Zepbound) 2.5 MG/0.5ML solution auto-injector Inject 0.5 mL (2.5 mg) under the skin 1 (one) time per week. 3 mL 04/14/19 25 Active senna (Senokot) 8.6 MG tablet Take 2 tablets (17.2 mg) by mouth at bedtime. 120 tablet 2 04/14/19 25 Active Multiple Vitamin (multivitamin) tablet Take 1 tablet by mouth Once per day. 90 tablet 1 04/14/19 25 Active ibuprofen 600 MG tablet Take 1 tablet (600 mg) by mouth 3 times daily. 90 tablet 04/14/19 25 025 Active senna (Senokot) 8.6 MG tablet Take 2 tablets (17.2 mg) by mouth at bedtime. 120 tablet 2 09/21/19 24 025 Discontinued(Re order (will not trigger notification to Pharmacy)) Multiple Vitamin (multivitamin) tablet Take 1 tablet by mouth Once per day. 90 tablet 1 11/21/19 24 025 Discontinued(Re order (will not trigger notification to Pharmacy)) Tirzepatide-Simon ght Management (Zepbound) 5 MG/0.5ML solution Inject 5 mg under the skin 1 (one) time per week. Do not start before March 19, 2024. 2 mL 3 03/19/19 25 025 Discontinued(Si de effects) Tirzepatide-Simon ght Management (Zepbound) 2.5 MG/0.5ML solution auto-injector Inject 0.5 mL (2.5 mg) under the skin 1 (one) time per week. 3 mL 04/14/19 025 Discontinued(Re order (will not trigger notification to Pharmacy)) senna (Senokot) 8.6 MG tablet Take 2 tablets (17.2 mg) by mouth at bedtime. 120 tablet 2 04/14/19 25 025 Discontinued Active Problems Problem Noted Date Diagnosed Date Chronic right hip pain 07/19/2023 Encounter for health-related screening Assessment & Plan (07/19/2023 11:02 AM EDT): Reviewed Care Gaps, immunizations, currently working on diet/exercise. Rtc in 1 yr of CPE Lead exposure 04/11/2023 Vaginal bleeding 10/30/2022 Assessment & Plan (09/02/2023 8:08 PM EDT): Patient had previous surgery with OCEANOLOGIST for an endometrial ablation around 1 yr ago, vaginal bleeding from uterus. Recommended f/up with OCEANOLOGIST Assessment & Plan (10/30/2022 10:00 AM EDT): Patient with history of irregular menses and complaints of abnormal uterine bleeding present for 2 weeks. OCEANOLOGIST appointment scheduled for 11/02/22. Will start on provera 20 mg x3 a day for 7 days and send for pelvic transvaginal Ultrasound and labs. Oral infection 09/08/2022 Assessment & Plan (04/11/2023 2:20 PM EST): Patient still presents visit with complaints of infected tooth, therefore, patient will be provided with antibiotics to treat concern. Advise to notify office if symptoms don't improve. Assessment & Plan (09/08/2022 3:27 PM EDT): Patient with tooth infection with associated pain. Will start on Augmentin for x 14 days. Morbid obesity 06/22/2022 Assessment & Plan (11/22/2023 10:01 AM EDT): Starting weight 252 lbs. Current weight 221 lbs. Total weight loss 31 lbs since June 2022 (phen/top) Starting weight for weight 241 lbs. Current weight 221 lbs, since May 10 (wegovy/ phen/top) Pt has lost 9 lbs. Discussed additional treatments and side effects. Discussed with Pt the importance of going to nurse care manager. BP is at goal. Pt declined referral to [facility]. Increased Wegovy to 1.7 mg. Relevant Medication Semaglutide-Weight management 1.7 mg / 0.75 ml solution auto-injector Assessment & Plan (09/21/2023 5:01 PM EDT): Starting weight 252 lbs, current weight 230 lbs. -Pt was advised to continue with injections as instructed. Assessment & Plan (07/19/2023 10:59 AM EDT): Discussed calorie deficit, recommended reduction of 20-30% of maintenance calories;. Recommended to decrease soda and sugary beverage consumption. Recommended at least 20 g per meal of protein to assist with satiety. Recommended at least 150 min/week of moderate intensity exercise. Cont phentermine/topamax & wegovy Assessment & Plan (06/22/2023 2:26 AM EDT): Discussed calorie deficit, recommended reduction of 20-30% of maintenance calories; nurse care manager referral offered. Recommended to decrease soda and sugary beverage consumption. Recommended at least 20 g per meal of protein to assist with satiety. Recommended at least 150 min/week of moderate intensity exercise. Assessment & Plan (05/11/2023 10:12 AM EST): Discussed calorie deficit, recommended reduction of 20-30% of maintenance calories. Recommended to decrease soda and sugary beverage consumption. Recommended at least 20 g per meal of protein to assist with satiety. Recommended at least 150 min/week of moderate intensity exercise. The patient is exploring options for weight management, including medication and bariatric surgery. Plan to discuss the benefits and side effects of Wegovy. The patient is considering bariatric surgery, and the risks and benefits of this option were discussed. The patient will continue on phentermine (minimal response will need to wean off (high dose topamnax) and add Wegovy. I have also referred her to bariatric surgery. Assessment & Plan (04/12/2023 9:08 AM EST): Discussed calorie deficit, recommended reduction of 20-30% of maintenance calories; nurse care manager referral offered. Recommended to decrease soda and sugary beverage consumption. Recommended at least 20 g per meal of protein to assist with satiety. Recommended at least 150 min/week of moderate intensity exercise. Phentermine/topamax: 18.75/100 mg. Discussed side effects-> tachycardia, HTN, teratogenic, cognitive dysfuction, metabolic acidosis, constipation, dysgeusia. Denies hx of , hyperthyroidism, MAOI use or glaucoma. Denies hx of kidney stones. Assessment & Plan (09/08/2022 3:26 PM EDT): Patient with history of obesity and no improvement of weight loss with diet modifications. At this point will increase Topamax from 50 mg to 100 mg and phentermine from 15 mg to 37.5 mg. Will follow up in 1 month. Assessment & Plan (07/27/2022 2:59 PM EDT): Patient down 4lbs in one month on 8 mg of phentermine, implementing diet modifications, and exercising. Will increase dose of phentramine from 8 mg to 15 mg. Will follow up in 1 month. Irritable bowel syndrome with diarrhea 3 Plantar fasciitis of left foot 06/22/2022 Tobacco dependence syndrome 08/04/2014 Encounters Date Type Department Care Team Description 04/14/2024 9:30 AM EST Telemedicine [facility] [address] [place] [address] Pavel Scott MD Morbid obesity (CMS/HCC) (Primary Dx); Dietary counseling; Exercise counseling; Chronic right hip pain 04/14/2024 Travel 03/28/2024 Orders Only GENERIC EXTERNAL DATA DEPARTMENT Provider, Generic External Data 03/07/2024 Telephone [facility] Information Management [address] [place] [address] Susi Bolton MD 03/07/2024 Telephone [facility] [address], [place] [phone] Susi Bolton MD 01/28/2024 Telephone [facility] [address], [place] [phone] Susi Bolton MD [facility] no longer covered March 19, 2024 from Last 3 Months Immunizations Name Administration Dates Next Due Influenza injectable quadriv alent IIV4 with preservative 12/11/2017 Influenza injectable quadrivalent preservative f ree 04/11/2023 MMR 12/11/2017,11/01/2011 TD (adult), 2 Lf tetanus tox oid, preservative free, adsorbed 04/11/2023 Tdap 11/01/2011 Social History Tobacco Use Types Packs/Day Years Used Date Smoking Tobacco: Former Cigarettes Passive Smoke Exposure: Never Smokeless Tobacco: Current Tobacco Cessation:Ready to Q uit: Not Asked; Counseling Given: Not Answered Alcohol Use Standard Drinks/Week Comments Never 0 [...] problems with any of the following? Mold;Lead [place] or Pipes;Water leaks 05/03/2023 Food Insecurity Answer [...] Orientation Straight 01/16/2022 10 :22 AM EDT Last Filed Vital Signs Vital Sign Reading Time Taken Comments Blood Pressure 128/76 11/21/2023 10:44 AM EDT Pulse 72 11/21/2023 10:44 AM EDT Temperature 36.6 ??C (97.9 ??F) 11/21/2023 10:44 AM E DT Respiratory Rate 20 11/21/2023 10:44 AM EDT Oxygen Saturation 99% 11/21/2023 10:44 AM EDT Inhaled Oxygen Concentration - - Weight 100 kg (221 lb) 11/21/2023 10:44 AM EDT Height 157.5 cm (5' 2 ) 11/21/2023 10:44 AM EDT Body Mass Index 40.42 11/21/2023 10:44 AM EDT Plan of Treatment Upcoming Encounters Date Type Department Care Team (Late st Contact Info) Description 06/05/2024 8:30 AM EDT Office Visit [facility] [address] [place] [address] Pavel Scott MD [address] [place] [address] Health Maintenance Due Date Last Done Comments Dental Oral Exam 1980 Dental Prophylaxis 1980 Alcohol/Substance Use Screening 1993 Family Planning (PISQ) 1996 Hepatitis A Vaccines (1 of 2 - Risk 2-dose series) 2000 Hepatitis B Vaccines (1 of 3 - 19+ 3-dose series) 2000 COVID-19 Vaccine (2023-2 5 season) 2023 09/09/2021, 04/11/2021, 03/21/2021 Influenza Vaccine (#1) 2023 , 12/11/2017 Depression Screening 04/11/2024 04/11/2023, 04/11/2023 SDOH Screening 05/03/2024 05/03/2023 Mammogram 09/11/2024 09/12/2023, 09/06/2022 Tobacco Screening 01/09/2025 01/10/2024 Dental X-Ray: Bitewings 01/10/2025 01/10/2024 Dental X-Ray: Full Mouth 03/06/2026 03/05/2023 Lipid Panel 07/18/2028 07/19/2023, 04/21/2021 Zoster Vaccines (1 of 2) 10/10/2031 DTaP/Tdap/Td Vaccines (3 - T d or Tdap) 04/11/2033 04/11/2023, 11/01/2011 RSV Patients and Patients Aged 60 years or older (1 - 1-dose 75+ series) 2056 HPV/Cotest Discontinued 10/24/2016 HIV Screening Completed 06/04/2019 Hepatitis C Screening Completed 06/04/2019 Cervical Cancer Screening Discontinued Pap Smear Discontinued 11/02/2022, 07/06/2020 HIB Vaccines Aged Out No longer eligi ble based on patient's age to complete this topic HPV Vaccines Aged Out No longer eligi ble based on patient's age to complete this topic IPV Vaccines Aged Out No longer eligi ble based on patient's age to complete this topic Meningococcal Vaccine Aged Out No elsi yobani eligible based on patient's age to complete this topic Pneumococcal Vaccine: Pediatrics (0 to 5 Years) and At-Risk Patients (6 to 49) Years) Aged Out No longer eligible based on patient's age to complete this topic RSV under 20 months Aged Out No longe r eligible based on patient's age to complete this topic Rotavirus Vaccines Aged Out No longer eligible based on patient's age to complete this topic Procedures Procedure Name Priority Date/Time Associated Diagnosis Comments US PELVIS TRANSVAGINAL Routine 7:05 AM EST HCG, TOTAL, QN Routine 04/04/2024 11:10 AM EST TSH W/REFLEX TO FT4 Routine 04/04/2024 1 1:10 AM EST CBC Routine 04/04/2024 11:10 AM EST HEMATOXYLIN AND EOSIN STAIN Routine 03/28/2024 8:15 AM EST BITEWING - SINGLE RADIOGRAPHIC IMAGE Routine 01/10/2024 11:00 AM EDT BI MAMMOGRAM SCREENING TOMOSYNTHESIS BILATERAL Routine 09/12/2023 10:10 AM EDT Encounter for screening mammogram for malignant neoplasm of breast LIPID PANEL, STANDARD Routine 07/19/2023 10:40 AM EDT Morbid obesity (CMS/HCC) PANORAMIC RADIOGRAPHIC IMAGE Routine 03/05/2023 10:00 AM EST PAP SMEAR Routine 11/02/2022 10:46 AM EDT [facility] HISTORICAL HEPATITIS C ANTIBODY RFLX Routine 06/04/2019 11:23 AM EDT [facility]ZZ HISTORICAL HIV AB/AG Routine 06/04/2019 11:23 AM EDT [facility] HISTORICAL HPV MRNA E6/E7 Routine 10/24/2016 3:20 PM EDT from Last 3 Months or Most Recently Relevant to Health Maintenance Results * US Pelvis Transvaginal (04/05/2024 7:05 AM EST) Anatomical Region Laterality Modality Pelvis Ultrasound 04/05/2024 7:05 AM EST Narrative 04/05/2024 7:07 AM EST ? [facility] ?[address] ?[place] [address] ? Ultrasound Report ? Signed ? Patient: Cristiane Galvan ? MR#: [id number] ? : 1980 ?Acct:[id number] ? Age/Sex: 43 / F ?ADM Date: 04/04/24 ? Loc: HO.US ? Attending Dr: London Reeves MD ? Ordering Physician: London Reeves MD ?? Date of Service: 04/04/24 ?? Procedure(s): US pelvic and transvaginal ?? Accession Number(s): [id number] ? cc: Susi Bolton MD; London Reeves [...] by Rani So MD in OV> ?04/05/24 07 ? DD/ 07 ? TD/TT: 04/05/24 0705 ? Armature Varnisher: ? Procedure Note Donotuseinterpreter, Image - 04/05/2024 [place] [address] Ultrasound Report Signed Patient: Cristiane Galvan MR#: [id number] : 1980Acct:[id number] Age/Sex: 43 / FADM Date: 04/04/24 Loc: HO.US Attending Dr: London Reeves MD Ordering Physician: London Reeves MD Date of Service: 04/04/24 Procedure(s): US pelvic and transvaginal Accession Number(s): [id number] cc: Susi Bolton MD; London Reeves MD [...] MD Signed By: <Electronically signed by Rani So MD in OV> 04/05/24705 DD/ 4 TD/TT: 04/05/24704 Armature Varnisher: us [facility] External Provider IMG US PROCEDURES Final Result * TSH with Reflex to Free T4 (04/04/2024 11:10 AM EST) TSH reflex Free T4 1.09 0.32 - 4.0 uIU/mL [facility] 04/04/2024 11:1 0 AM EST 04/04/2024 11:16 AM EST us Generic External Data Provider LAB BLOOD ORDERAB LES Final Result [facility] [address] [place] [phone] * (ABNORMAL) CBC (04/04/2024 11:10 AM EST) White Blood Count 6.3 4.8 - 10.8 X10*3/uL [facility] Red Blood Count 3.84(L) 4.20 - 5.50 X10*6/uL [facility] Hemoglobin 11.8(L) 12.0 - 16.0 g/dl [facility] Hematocrit 35.5(L) 37.0 - 47.0 % [facility] Mean Corpuscular Volume 92.4 80.0 - 98.0 fL [facility] Mean Corpuscular Hemoglobin 30.7 27.0 - 33.0 pg [facility] Mean Corpuscular HGB Conc 33.2 31.0 - 35.0 g/dl [facility] Red Cell Distribution Width 12.5 11.0 - 16.0 % [facility] Platelet Count 201 160 - 400 X10*3/uL [facility] Mean Platelet Volume 10.9 9.4 - 12.3 fL [facility] NRBC Pct Auto 0.0 0.0 - 0.2 /100WBC [facility] NRBC Abs Auto 0.000 0.0 - 0.012 X10*3/uL [facility] 04/04/2024 11:1 0 AM EST 04/04/2024 11:16 AM EST Generic External Data Provider LAB BLOOD ORDERAB LES Final Result Performing Organization Address City/[facility]/ZIP Co de Phone Number [facility] [address] [place] [phone] * hCG, Total, Quantitative (04/04/2024 11:10 AM EST) HCG Quantitative <2 mIU/mL [facility] Comment:Weeks post LMP Appro ximate hCG(Last Menstrual Period) Range (mIU/ml)3 - 4 weeks 9 - 1304 - 5 weeks 75 - 2,6005 - 6 weeks 850 - 20,8006 - 7 weeks 4000 - 100,2007 - 12 weeks 11,500 - 289,95074 - 16 weeks 18,300 - 137,19604 - 29 weeks (2nd trimester) 1,400 - 53,67320 - 41 weeks (3rd trimester) 940 - [...] ORDERAB LES Final Result Performing Organization Address City/[facility]/ZIP Co de Phone Number [facility] [address] [place] [phone] * Hematoxylin and Eosin Stain (03/28/2024 8:15 AM EST) 03/28/2024 8:15 AM EST 03/28/2024 12:03 PM EST Narrative [facility] - 04/01/2024 11:59 AM EST ----- ------- Name: Cristiane Galvan ? Age/Sex: 43/F ? : 1980 Unit#: [id number] ?? Attend Dr: London Reeves MD ?Re03/28/24 ?Status: DEP REF ? Location: HO.LNP ?Disch: ? ----- ------- SPEC : [id number] ?RECD: 03/28/24-1202 ? STATUS: ??SOUT ? REQ NUM: [id number] ? BRITTANEY: 03/28/24-814 ? SUBM DR: London Reeves MD ? ENTERED: ??03/28/24-1213 ?SP TYPE: Surgical ? OTHR DR: Susi [...] ? Age/Sex: 43/F ? : 1980 Unit#: [id number] ?? Attend Dr: London Reeves MD ?Re03/28/24 ?Status: DEP REF ? Location: HO.LNP ?Disch: ? ----- ------- SPEC : [id number] ?RECD: 03/28/24-1202 ? STATUS: ??SOUT ? REQ NUM: [id number] ? BRITTANEY: 03/28/24-814 ? SUBM DR: London Reeves MD ? ENTERED: ??03/28/24-1213 ?SP TYPE: Surgical ? OTHR DR: Susi Bolton MD ? ORDERED: ??HE Stain/5, Gross Micro L4/2 ? Copies To: ?? Susi Bolton MD ?? [address] ?? [place] [address] ?? [phone] ?? London Reeves MD ?? [facility] ?? [address] ?? [place] [address] ?? [phone] ----- ------- Signed (signature on file) Toi Weathers MD 04/01/24 8096 ? ----- ------- ? END OF REPORT ? us Generic External Data Provider LAB BLOOD ORDERAB LES Final Result [facility] [address] [facility] [place] [address] [phone] * BI Mammogram Screening Tomosynthesis Bilateral (09/12/2023 10:10 AM EDT) Anatomical Region Laterality Modality Breast Bilateral Mammography 09/12/2023 10:1 0 AM EDT Narrative 09/12/2023 10:25 AM EDT ? [facility] ? [address] ?[place] [address] ? Mammography Report ? Signed ? Patient: Cristiane Galvan ? MR#: [id number] ? : 1980 ?Acct:[id number] ? Age/Sex: 42 / F ?ADM Date: 09/12/23 ? Loc: HO.MAMMO ? Attending Dr: Susi Bolton MD ? Ordering Physician: Susi Bolton MD ?Results: 1Nega ?? tive ? Date of Service: 09/12/23 ?Follow Up: 1 Year From Orig ?? inal Mammogram ? Procedure(s): MM tomosynthesis screening BI ?? Accession Number(s): [id number] ? cc: Susi Bolton MD ? EXAMINATION: ?? MM SCREENING DIGITAL BREAST TOMOSYNTHESIS, BILATERAL ? CLINICAL INFORMATION: ? Screening. Asymptomatic. ? COMPARISON: ?? Mammography: This study is compared with prior exams dating back to ?? 2022. ? TECHNIQUE: ?? Digital breast tomosynthesis is performed in both the craniocaudal and ?? mediolateral oblique views along with computer-aided detection (CAD). ?? Synthesized 2D images are generated from the tomosynthesis. ? FINDINGS: ?? There are scattered areas of fibroglandular density (ACR BI-RADS breast ?? composition Category b). ? There are no significant masses, abnormal calcifications, or other ?? abnormalities. ? MM/MM tomosynthesis screening BI ?? IMPRESSION: ?? No mammographic evidence of malignancy. ? ASSESSMENT: ? BI-RADS BI-RADS 1 - Negative ? RECOMMENDATION: ?? Routine annual mammography screening. ? 1 year F/U ? This examination should not preclude the clinical evaluation of a ?? suspicious palpable abnormality. ? This patient's information was entered into a reminder system with a ?? target due date for their next mammogram. ? Dictated By: ?Lisa Frias MD ? Signed By: ?<Electronically signed by Lisa Frias MD in OV> ? 09/12/231021 ? DD/ 1010 ? TD/TT: ? Armature Varnisher: ? Procedure Note Kareem, Image - 09/12/2023 [place] [facility] [address] [place] [address] Mammography Report Signed Patient: Cristiane Galvan MR#: [id number] : 1980Acct:[id number] Age/Sex: 42 / FADM Date: 09/12/23 Loc: HO.MAMMO Attending Dr: Susi Bolton MD Ordering Physician: Susi Bolton [facility]: 1Nega tive Date of Service: 09/12/23Follow Up: 1 Year From [facility]a Mammogram Procedure(s): MM tomosynthesis screening BI Accession Number(s): [id number] cc: Susi Bolton MD EXAMINATION: MM SCREENING DIGITAL BREAST TOMOSYNTHESIS, BILATERAL CLINICAL INFORMATION: Screening. Asymptomatic. COMPARISON: Mammography: This study is compared with prior exams dating back to 2022. TECHNIQUE: Digital breast tomosynthesis is performed in both the craniocaudal and mediolateral oblique views along with computer-aided detection (CAD). Synthesized 2D images are generated from the tomosynthesis. FINDINGS: There are scattered areas of fibroglandular density (ACR BI-RADS breast composition Category b). There are no significant masses, abnormal calcifications, or other abnormalities. MM/MM tomosynthesis screening BI IMPRESSION: No mammographic evidence of malignancy. ASSESSMENT: BI-RADS BI-RADS 1 - Negative RECOMMENDATION: Routine annual mammography screening. 1 year F/U This examination should not preclude the clinical evaluation of a suspicious palpable abnormality. This patient's information was entered into a reminder system with a target due date for their next mammogram. Dictated By: Lisa Frias MD Signed By: <Electronically signed by Lisa Frias MD in OV> 09/12/23 1022 DD/ 1010 TD/TT: Armature Varnisher: Susi Bolton MD IMG BI PROCEDURES Edited Resu lt - Final * Lipid Panel, Standard (07/19/2023 10:40 AM EDT) Triglycerides 57 <150 mg/dL [facility] Comment:Desirable Triglyceri de: less than 150 mg/dLBorderline High Triglyceride 150-199 mg/dLHigh Triglyceride: 200-499 mg/dLVery High Triglyceride: greater than or equal to 5OO mg/dL Cholesterol 162 <200 mg/dL [facility] Comment:Desirable Cholestero l: less than 200 mg/dLBorderline High Cholesterol: 200-239 mg/dLHigh Cholesterol: greater than 239 mg/dL LDL Cholesterol Calculated 92 <100 mg/dL [facility] Comment:Desirable LDL: less than 100 mg/dLNear Optimal/Above Optimal LDL: 110- 129 mg/dLBorderline High LDL: 130-159 mg/dLHigh LDL: 160-189 mg/dLVery High LDL: greater than or equal to 190 mg/dL HDL Cholesterol 59 >40 mg/dL [facility] Comment:Desirable HDL: great er than 40 mg/dL Note: This HDL assay may give artificially low results in patients with liver disease. Blood Venous blood specimen / Unknown 07/19/2023 10:40 AM EDT 07/19/2023 2:02 PM EDT us Susi Bolton MD LAB BLOOD ORDERABLES Final Re sult [facility] [address] [place] [address] [phone] * Pap Smear (11/02/2022 10:46 AM EDT) 11/02/2022 10:4 6 AM EDT 11/03/2022 9:00 AM EDT Narrative [facility] - 11/21/2022 9:41 AM EDT ----- ------- Name: Cristiane Silva ? Age/Sex: 42/F ? : 1980 Unit#: [id number] ?? Attend Dr: Maricarmen Muro CNM ?Re11/02/22 ?Status: DEP REF ? Location: HO.LNP ?Disch: ? ----- ------- SPEC : [id number] ?RECD: 11/03/22-0900 ? STATUS: ??SOUT ? REQ NUM: [id number] ? BRITTANEY: 11/02/22-1046 ? SUBM DR: Maricarmen Muro CNM ? ENTERED: ??11/03/22-12 ?SP TYPE: Pap Smr ?OTHR DR: Susi Bolton MD ? ORDERED: ??Pap Smear ? Interpretation ?? Satisfactory for evaluation. ?? Coccobacilli consistent with shift in vaginal carlota. ?? Negative for intraepithelial lesion or malignancy. ?HPV mRNA E6/E7: ?NOT DETECTED ? This assay detects E6/E7 viral messenger RNA (mRNA) from 14 high-risk HPV types (16, 18, ?? 31, 33, 35, 39, 45, 51, 52, 56, 58, 59, 66, 68) ?? HPV testing performed by [facility], [place], [place]. ??See reference laboratory ?? pion of the EMR for entire report. ?Clinical Information LMP:10/19/22 Previous PAP test:10/24/16, WNL ? Material Received ?? ThinPrep-Cervical Copies To: ?? Maricarmen Muro CNM ?? [address] ?? [place] [address] ?? [phone] ?? Susi Bolton MD ?? [address] ?? [place] [address] ?? [phone] ----- ------- Signed (signature on file) SIOMARA Díaz ([facility]) 11/21/22 0941 ? ----- ------- ? END OF REPORT ? [facility] External Provider LAB CYT OLOGY ORDERABLES Final Result Performing Organization Address [facility]/ZIP Co de Phone Number [facility] [address] [place] [address] [phone] * HEPATITIS C ANTIBODY RFLX (06/04/2019 11:23 AM EDT) Pathologist [facility] [place] HEPATITIS C ANTIBODY NONREACTIVE NONREACTIVE [facility] Comment: Antibodies to HCV not detected; does not exclude early acute HCV infection. 06/04/2019 11:2 3 AM EDT Nithya Asif MD HISTORICAL/NON ORDERABLE LABS Fi nal Result Performing Organization Address [facility]/ZIP Co de Phone Number [facility] [address] * HIV AB/AG (06/04/2019 11:23 AM EDT) HIV AG/AB NONREACTIVE [facility] Comment: HIV-1 p24 Ag and/or HIV-1/HIV-2 Ab not detected. ?? A test result that is nonreactive does not exclude the possibility of exposure to or infection with HIV-1 and/or HIV-2. Nonreactive results in this assay for individuals with prior exposure to HIV-1 and/or HIV-2 may be due to antigen and antibody levels that are below the limit of detection of this assay. ?? The [employer] HIV Ag/Ab Combo assay result and supplemental assay results should be interpreted in conjunction with the patient's clinical presentation, history and other laboratory results. ??If the results are inconsistent with clinical evidence, additional testing is suggested to confirm the result. 06/04/2019 11:2 3 AM EDT us Nithya Asif MD HISTORICAL/NON ORDERABLE LABS Fi nal Result [facility] [address] * HPV mRNA E6/E7 (10/24/2016 3:20 PM EDT) HPV mRNA E6/E7 Not Detected NOT DETECTED [facility] Comment: This test was performed using the APTIMA(R) HPV Assay ([employer] This assay detects E6/E7 viral messenger RNA (mRNA) from 14 high-risk HPV types (16,18,31,33,35,39,45,51, 52,56,58,59,66,68). For additional information please refer to: http://education.Creopt[employer].Samares/faq/HQN246j4 (This link is being provided for informational/ educational purposes only.) Test Performed by [employer], [facility], [address] [place] [address] Misha Arroyo M.D., Ph.D., Director of Laboratories , [facility] [id number] Please note: ??Effective 11/29/2015, HPV testing will be performed using [employer] APTIMA test which targets mRNA. Detecting mRNA instead of DNA, as in older methods, offers significant improvements in specificity. 10/24/2016 3:20 PM EDT Lupe Jensen CNM HISTORICAL/NON ORDERABLE LABS Final Result [facility] [address] [place] [id number], from Last 3 Months or Most Recently Relevant to Health Maintenance Insurance [facility] C3 DENTAL-[facility] MEDICAID STAND ADULT Care Teams Qualitative Field Project Manager Relationship Specialty Start Date End Date Susi Bolton MD [address] [place] [phone] PCP - General Family Medicine 07/29/21
--- OUTSIDE RECORDS SUMMARY | 2024-04-16 10:59 | XMS_ITS | Encounter Summary ---
Author Organization [employer] Address [address] [place] [address] [address] [place] [address] Care Team Providers Care Director Of Online Merchandising Name Role Phone Susi Bolton MD Primary Care Provider [phone] Reason for Visit * Reason Comments Consult Encounter Details Date Type Department Care Team ([facility] st Contact Info) Description 03/28/2023 1:30 PM EST Office Visit [facility] [address] [place], [place] [phone] Luis Morrison DDS [address] [place], [place] [phone] Social History Tobacco Use Types Packs/Day Years Used Date Smoking Tobacco: Never Passive Smoke Exposure: Never Smokeless Tobacco: Current [...] problems with any of the following? Mold;Lead [place] or Pipes;Water leaks 05/03/2023 Food Insecurity Answer [...] Patient Health Questionnaire-2 Score 0 04/11/2023 Comments Unknown Sex and Gender Information Value Date Recorded Sex Assigned at Female 01/16/2022 10:22 AM EDT Legal Sex Female 10:22 AM EDT Gender Identity Female 01/16/2022 10:22 AM EDT Sexual Orientation Straight 01/16/2022 10 :22 AM EDT documented as of this encounter Progress Notes * Luis Morrison DDS - 03/28/2023 1:30 PM EST Internal referred Pt. Presents for extractions, however Cristiane wants procedure to be performed under general anesthesia . Referral to [facility] provided. Dr. Morrison documented in this encounter Plan of Treatment Upcoming Encounters Date Type Department Care Team (Late st Contact Info) Description 06/05/2024 8:30 AM EDT Office Visit [facility] [address] [place] [address] Pavel Scott MD [address] [place] [address] documented as of this encounter Procedures Procedure Name Priority Date/Time Associated Diagnosis Comments NO CHARGE VISIT Routine 03/28/2023 1:30 PM EST documented in this encounter Visit Diagnoses Not on filedocumented in this encounter Care Teams Director Of Online Merchandising Relationship Specialty Start Date End Date Susi Bolton MD [address] [place] [address] PCP - General Family Medicine 07/29/21 documented as of this encounter
--- OUTSIDE RECORDS SUMMARY | 2024-04-16 10:59 | XMS_ITS | Encounter Summary ---
Author Organization [employer] Address [address] [place] [address] [place] [address] Care Team Providers Care Medical Information Specialist Name Role Phone Susi Bolton MD Primary Care Provider [phone] Encounter Details Date Type Department Care Team (Late Contact Info) Description 12/07/2022 [facility] Information Management [address] [place], [place] [phone] Susi Bolton MD [address] [place], [place] [phone] Social History Tobacco Use Types Packs/Day Years Used Date Smoking Tobacco: Never Passive Smoke Exposure: Never Smokeless Tobacco: Current Alcohol Use Standard Drinks/Week Comments Never 0 (1 standard drink = 0.6 oz pur e alcohol) Comments Unknown Sex and Gender Information Value [...] Description 06/05/2024 8:30 AM EDT Office Visit [facility] [address] [place], [place] [phone] Pavel Scott MD [address] [place], [place] [phone] documented as of this encounter Visit Diagnoses Not on filedocumented in this encounter Care Teams Medical Information Specialist Relationship Specialty Start Date End Date Susi Bolton MD [address] [place] [address] PCP - General Family Medicine 07/29/21 documented as of this encounter
== END 2024-04-16 10:36 | disposition home or self-care (01) ==
LOC: HO.HWS 09:29
PROVIDERS: PCP Family Medicine; Visit Provider Obstetrics & Gynecology
DX: N93.9 Abnormal uterine and vaginal bleeding, unspecified (principal); N90.89 Other specified noninflammatory disorders of vulva and perineum
CPT/HCPCS: 99213

== ENCOUNTER → 2024-04-16 09:29 | Outpatient (BNVA) | payer MEDICAID, SELFPAY | PROVIDERS: PCP Family Medicine; Visit Provider Obstetrics & Gynecology | DX: N93.9 Abnormal uterine and vaginal bleeding, unspecified (principal); N90.89 Other specified noninflammatory disorders of vulva and perineum | CPT/HCPCS: 99212 ==

== ENCOUNTER 2024-10-23 09:52 | Outpatient (REF) | payer MEDICAID, SELFPAY ==
--- NOTE | ~2024-10-23 | MM_ITS ---
EXAMINATION: MM SCREENING DIGITAL BREAST TOMOSYNTHESIS, BILATERAL CLINICAL INFORMATION: Screening. Asymptomatic. COMPARISON: September 12, 2023, and September 06, 2022 TECHNIQUE: Digital breast tomosynthesis is performed in both the craniocaudal and mediolateral oblique views along with computer-aided detection (CAD). Best possible images according to the technologist's notes. FINDINGS: BREAST COMPOSITION: There are scattered areas of fibroglandular density (ACR BI-RADS breast composition Category b). BILATERAL BREASTS: No significant masses, suspicious calcifications or other abnormalities are seen in either breast. MM/MM tomosynthesis screening BI IMPRESSION: BILATERAL BREASTS: Negative, no mammographic evidence of malignancy. Normal interval follow-up is recommended in 12 months. ASSESSMENT: BI-RADS 1 - Negative RECOMMENDATION: Routine annual mammography screening. FOLLOW-UP: 1 year F/U This examination should not preclude the clinical evaluation of a suspicious palpable abnormality. This patient's information was entered into a reminder system with a target due date for their next mammogram. Electronically signed by: Rajesh Blair MD 11/01/2024 10:19 PM EDT
--- OUTSIDE RECORDS SUMMARY | 2024-10-23 10:22 | XMS_ITS | Encounter Summary ---
Author Organization [employer] Address [address] [facility] 7 [place] [address] Care Team Providers Care Cold Reduction Roller Name Role Phone Susi Bolton MD Primary Care Provider [phone] Reason for Visit * Reason Comments Med Refill Encounter Details Date Type Department Care Team ([facility] Contact Info) Description 05/09/2024 Refill [facility] [address] [place] [address] Pavel Scott MD [address] [place] [address] Social History Tobacco Use Types Packs/Day Years [...] problems with any of the following? Mold;Lead [place] or Pipes;Water leaks 05/03/2023 Food Insecurity Answer [...] Care Team (Late st Contact Info) Description 10/24/2024 3:30 PM EDT Office Visit [facility] [address] [place] [address] Susi Bolton MD [address] [place] [address] documented as of this encounter Visit Diagnoses Not on filedocumented in this encounter Additional Health Concerns Assessment Noted Time PHQ-9 Depression Total Score: 2 04/11/19 24 2:02 PM EST documented as of this encounter Care Teams Cold Reduction Roller Relationship Specialty Start Date End Date Susi Bolton MD [address] [place] [phone] PCP - General Family Medicine 07/29/21 documented as of this encounter
== END 2024-10-23 09:53 | disposition home or self-care (01) ==
LOC: HO.MAMMO 09:52
PROVIDERS: PCP Family Medicine; Visit Provider Family Medicine
DX: Z12.31 Encounter for screening mammogram for malignant neoplasm of breast (principal)
CPT/HCPCS: 77063; 77067

== ENCOUNTER → 2024-10-23 10:00 | Outpatient (BNV) | payer MEDICAID, SELFPAY | PROVIDERS: PCP Family Medicine; Visit Provider Radiology Body Imaging | DX: Z12.31 Encounter for screening mammogram for malignant neoplasm of breast (principal) | CPT/HCPCS: 77063; 77067 ==

== ENCOUNTER 2024-11-04 09:51 | Outpatient (AMB) | payer MEDICAID, SELFPAY ==
--- NOTE | 2024-11-04 09:57 | MHC.OFFVIS ---
Vital Signs 11/04/24 09:59 Height 5 ft 3 in Weight 236 lb BMI 41.8 BP 132/60 Blood Pressure Location Rt brachial Position Sitting Pulse 88 Pulse Source Pulse Oximeter Pulse Oximetry (%) 97 Oxygen Delivery Method Room Air Intake Visit Reasons: IBS / EPI. Re-Est. EFRA 01/2022. Intake Note: Est pt for mgmt of IBS + EPI. Pt last seen 01/2022. CC: C.O. exacerbation of chronic conditions and wanting to discuss concerns pertaining to possible / future gastric surgery. 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 Re-Est. EFRA 01/2022.: Details: LAST VISIT Pancreatic insufficiency Diagnosed with moderate pancreatic insufficiency. Started Creon and is doing well. Patient was encouraged to take Creon up to 4 times a day even when she drinks her shakes and when she takes her protein bars Postprandial abdominal bloating Patient denies postprandial abdominal bloating since starting the Creon. She can continue current dose. GERD (gastroesophageal reflux disease) Patient reports that she has been feeling much better. Discussed with her avoiding dietary triggers and late night snacking. Staying upright for minimal 3 hours after meals discussed with patient. She can continue current therapy. Negative stool studies for H pylori. IBS (irritable bowel syndrome) Continue avoiding dietary triggers. Patient states that she is avoiding lactose and gluten. It is trying to stay away from it as much as possible. FODMAP diet discussed with patient. Patient is trying to work very hard on losing weight and she has done a great job since June. Low vitamin B12 level and vitamin-D level will be replaced with supplements. I will see her in 2 months, patient will call me sooner if she will have any GI concerning symptoms. She is agreeable to this plan and verbalizes understanding of instructions. She was given the opportunity to ask questions and all questions answered. ? Thank you for allowing me to participate in her care Plan Medications New cholecalciferol (vitamin D3) 50 mcg PO DAILY 90 caps 3RF R79.89 cyanocobalamin (vitamin B-12) 1,000 mcg PO DAILY 90 caps 2RF Refilled ohpycz-lthyzyew-odoaalq 6,000-19,000 -30,000 unit (Creon) do not exceed 10,000 unit/kg lipase per 24 hrs 1 cap PO .qid ac 360 caps 2RF TODAY'S VISIT: Patient is here today for request visit. Patient reports feeling frustrated. She was on Wegovy in the past and was losing weight, however ever since she got placed on Zepbound she has been gaining weight. Patient is contemplating about going for bariatric surgery, however she states that she is afraid. Patient states that she weighed almost 400 lb couple years ago now down to 236 lb. Patient feels frustrated. She is trying to avoid carbs. Patient is usually doing juice is for breakfast. Does in eat large meals, however sometimes frustration makes her feel depressed and she eats sweets. Patient does admit that she is drinking soda daily. Patient reports her acid reflux is controlled mainly with food. Patient is not having as much diarrhea anymore. She is taking senna as needed when constipated. [facility] Medical History Pancreatic insufficiency Right bundle branch block Surgical History History of endometrial ablation H/O tubal ligation History of section History of cholecystectomy Social History Household Members: Family Housing: House Alcohol intake: never Patient Tobacco Use Status: Former Tobacco user Tobacco use type: Cigarette Years Smoked: 15 e-Cigarette/Vaping Use: Former Use Current occupational status: student Sexual orientation: Straight/Heterosexual Gender identity: Female Review of Systems Const Denies weight gain and Denies weight loss ENT Reports no additional complaints, Denies dysphagia and Denies odynophagia Card Reports no additional complaints Resp Reports no additional complaints GI Denies abdominal pain, Denies belching, Denies melena, Denies bloating, Denies change in bowel habits, Denies dysphagia, Denies excessive flatus, Denies dyspepsia, Denies heartburn, Denies diarrhea, Denies loose stools, Denies nausea, Denies odynophagia and Denies vomiting Musc Reports no additional complaints Neuro Reports no additional complaints Psych Reports no additional complaints Endo Reports no additional complaints Physical Exam Vital Signs: Last Vital Signs Pulse 88 11/04/24 09:59 BP 132/60 11/04/24 09:59 Pulse Ox 97 11/04/24 09:59 Oxygen Delivery Method Room Air 11/04/24 09:59 BMI result Body Mass Index 41.8 Const General: healthy appearing, no acute distress and well developed Nutritional Appearance: well nourished Orientation/consciousness: patient oriented x3 Resp Effort & Inspection: normal respiratory effort, able to speak in complete sentences, no tracheal deviation and symmetric chest movement Auscultation: clear to auscultation bilaterally Cardio Rate: regular rate GI Inspection: Yes normal to inspection and No distended Palpation (GI): Soft to palpation, not firm, nontender and No hepatosplenomegaly present Auscultation: normal bowel sounds General: Yes no CVA tenderness Back/Spine/Pelvis Back: no CVA tenderness Skin General skin exam: elasticity normal, turgor normal and dry skin Neuro General: patient oriented x3 Psych Appearance: grossly normal Mental Status: mental status grossly normal Assessment & Plan Assessment & Plan (1) Pancreatic insufficiency: Code(s): K86.89 - Other specified diseases of pancreas Category: Medical (2) Postprandial abdominal bloating: Code(s): R14.0 - Abdominal distension (gaseous) (3) Gastroesophageal reflux disease: Code(s): K21.9 - Gastro-esophageal reflux disease without esophagitis Qualifiers: Esophagitis presence: esophagitis presence not specified Qualified Code(s): K21.9 - Gastro-esophageal reflux disease without esophagitis (4) Irritable bowel syndrome: Code(s): K58.9 - Irritable bowel syndrome, unspecified Qualifiers: Irritable bowel syndrome type: with constipation Qualified Code(s): K58.1 - Irritable bowel syndrome with constipation Plan Reports frustration with Zepbound. Patient states that she did semaglutide, however insurance is not covering it anymore. Patient reports that sometimes she takes the Zepbound however frequently she is not taking it. I have recommended berberine to her to take in conjunction with the GLP1. Patient was encouraged to eat small meals and more often. Avoids soda, carbs. Increase fluid intake and activity to promote better bowel motility. Patient will return in 2-3 months, sooner on as needed basis. Patient was agreeable to current plan of care and verbalizes understanding of instructions. She was given the opportunity to ask questions and all questions answered. Thank you for allowing me to participate in her care Orders: Orders Vitamin D 25-OH (D2 and D3) Today E55.9 - Vitamin D deficiency, unspecified TSH reflex Free T4 Today K59.00 - Constipation, unspecified Lipase Today R10.9 - Unspecified abdominal pain Pancreatic Elastase-1 Today R10.9 - Unspecified abdominal pain Vitamin B12 and Folate Today R19.7 - Diarrhea, unspecified Coding Level of Care Code Est Pt Level 3 (31568) Diagnoses Pancreatic insufficiency K86.89 Postprandial abdominal bloating R14.0 Gastroesophageal reflux disease, unspecified whether esophagitis present K21.9 Esophagitis presence: esophagitis presence not specified Irritable bowel syndrome with constipation K58.1 Irritable bowel syndrome type: with constipation Time Spent (min) 30 Comment 20 minutes spent with patient and additional 10 minutes spent reviewing her records
[2024-11-04 09:59] VITALS: BP 132/60; PULSE 88; O2SAT 97; BMI 41.8
== END 2024-11-04 10:25 | disposition home or self-care (01) ==
LOC: HO.HGI 09:51
PROVIDERS: PCP Family Medicine; Visit Provider Nurse Practitioner Family
DX: K86.89 Other specified diseases of pancreas (principal); R14.0 Abdominal distension (gaseous); K21.9 Gastro-esophageal reflux disease without esophagitis; K58.1 Irritable bowel syndrome with constipation
CPT/HCPCS: 99213

== ENCOUNTER 2024-11-04 09:51 | Outpatient (REF) | payer MEDICAID, SELFPAY ==
[2024-11-04 12:00] LABS: Lipase 28 U/L (8-78)
[2024-11-04 12:37] LABS: Folate 7.9 ng/mL (> or = 4.0); Vitamin B12 264 pg/mL (200-900)
[2024-11-09 14:48] LABS: Vitamin D 25-OH, D2 <4 ng/mL; Vitamin D 25-OH, D3 21 ng/mL; Vitamin D 25-OH, Total 21 ng/mL (30-100)
== END 2024-11-04 09:52 | disposition home or self-care (01) ==
LOC: HO.LAB 09:51
PROVIDERS: PCP Family Medicine; Visit Provider Nurse Practitioner Family
DX: K58.2 Mixed irritable bowel syndrome (principal); K86.89 Other specified diseases of pancreas; K21.9 Gastro-esophageal reflux disease without esophagitis; E55.9 Vitamin D deficiency, unspecified; R41.0 Disorientation, unspecified; R10.9 Unspecified abdominal pain
CPT/HCPCS: 36415; 82306; 82607; 82746; 83690; 84443; 99212

== ENCOUNTER 2024-11-05 07:51 | Outpatient (REF) | payer MEDICAID, SELFPAY | END 2024-11-05 07:52 | disposition home or self-care (01) | LOC: HO.LNP 07:51 | PROVIDERS: Visit Provider Nurse Practitioner Family | DX: R10.9 Unspecified abdominal pain (principal) | CPT/HCPCS: 82656 ==

== ENCOUNTER 2025-01-26 08:57 | Outpatient (AMB) | payer MEDICAID, SELFPAY ==
--- NOTE | 2025-01-26 09:07 | MHC.OFFVISWM ---
VS Expanded 01/26/25 09:08 BP 134/63 Blood Pressure Location Lt brachial Blood Pressure Position Sitting Pulse 94 Pulse Source Pulse Oximeter Temp 97.2 F Temperature Source Skin Pulse Oximetry 97 Oxygen Delivery Method Room Air Height 5 ft 3 in Weight 247 lb 3.2 oz BMI 43.8 Body Fat % 48.2 Body Fat Mass 119 Fat Free Mass 128 Visceral Fat Rating 15 Body Water % 37 Body Water Mass 91.4 Muscle Mass/Score 121.6 Basal Metabolic Rate/Score 1,827 Intake Visit Reasons: (OV) [employer] SWL BMI 43.5 Allergies acetaminophen (From TYLENOL) Allergy (Severe, Verified 01/19/25 09:12) HIVES ketorolac (From TORADOL) Allergy (Severe, Verified 01/19/25 09:12) SWELLING morphine Allergy (Severe, Verified 01/19/25 09:12) Hives Penicillins Allergy (Mild, Verified 01/26/25 09:15) Rash Medication List - Last Reconciled 01/26/25 by Ephraim Do MD cholecalciferol (vitamin D3) 50 mcg PO DAILY multivitamin 1 tab PO DAILY sennosides (senna) 17.2 mg PO BEDTIME tirzepatide (weight loss) (Zepbound) 10 mg subcut QWEEK HPI HPI (OV) TRANSF[employer] AND [employer] SWL BMI 43.5: Details: Start time: 9.01am, End time: 10.01am ?I spent 50 minutes speaking with the patient on the phone plus an additional 10 minutes reviewing and updating records for a total of 60 minutes HPI Comments Details: Previous weight loss: Wegovy (lost 120lbs in 3yrs, Zepbound: 4 months, no WL) Wakes up: 6am, Sleeps: 12am Breakfast: skips Lunch: skips Dinner: 3-4pm (rice, chicken, pasta, plantains) Snacks: 2-3 snacks before dinner (dry cereal, trail mix peanuts, pop tarts), 1 snack after dinner (same) Exercise: treadmill: incline but does not track calories, stationary bike that tracks calories Beverages: Coffee/tea: none, Soda: 2-3 bottles of regular coke/d, Juice: Crystal light, V8, ETOH: none PFSH Medical History (Updated 01/26/25 @ 09:20 by Ephraim Do MD) Morbid obesity Pancreatic insufficiency Right bundle branch block Surgical History History of endometrial ablation H/O tubal ligation History of section History of cholecystectomy Family History (Updated 01/20/25 @ 12:05 by Sheryl Schneider CMA) Mother No problems noted. Father No problems noted. Daughter Hearing loss Social History (Updated 01/20/25 @ 12:05 by Sheryl Schneider CMA) Household Members: Family Housing: House Alcohol intake: never Patient Tobacco Use Status: Current everyday Tobacco user Tobacco use type: Cigarette and Smokeless Tobacco Years Smoked: 15 e-Cigarette/Vaping Use: Former Use Current occupational status: student Sexual orientation: Straight/Heterosexual Gender identity: Female Physical Exam Vital Signs: Last Vital Signs Temp 97.2 F 01/26/25 09:08 Pulse 94 01/26/25 09:08 BP 134/63 01/26/25 09:08 Pulse Ox 97 01/26/25 09:08 Oxygen Delivery Method Room Air 01/26/25 09:08 BMI result Body Mass Index 43.8 GI Inspection: Yes normal to inspection (Gynecoid), Yes incision (well healed) and Yes obesity Palpation (GI): Soft to palpation Extrem Right lower extremity: normal to inspection Left lower extremity: normal to inspection Telehealth Telehealth Telehealth Platform: Telephone Location of provider rendering services: practice address Location of patient: address on file Patient Identification confirmed using: Name, : Yes Telehealth method: voice only Patient verbally consented to treatment: Yes Patient verbally consented to billing insurance company: Yes Patient informed of any privacy concerns related to visit: Yes Minutes spent on Phone/Video with Pt.: 60 Assessment & Plan Assessment & Plan (1) Morbid obesity: Code(s): E66.01 - Morbid (severe) obesity due to excess calories Category: Medical Plan: 1.? Plan for lap sleeve gastrectomy. If diaphragmatic or ventral hernias are present at time of surgery, these will be repaired laparoscopically as well. I emphasized the importance of close follow-up, adherence to instructions and good communication. The surgery does not replace the need to change your lifestlyle which is the cause of the obesity problem. The surgery provides the motivation to try again to change your lifestyle, it reduces the appetite and make the transition to a better lifestyle easier and doubles the amount of weight you would lose compared to doing the lifestyle change without the surgery. You will need to be on a liquid diet with protein shakes for 2 weeks before surgery to maximize weight loss and boost your nutritional status to recover better from surgery and also for the first two weeks after surgery to let the stomach heal before we introduce other foods. After the first 2 weeks we will introduce protein bars and soft foods like scrambled eggs, cottage cheese and yogurt and after the 6th week will introduce meat, fish and cooked vegetables in small amounts. Over time you should be able to eat everything in small amounts. Side effects like nausea, vomiting, heartburn or abdominal pain are not common in the practice unless you are not following in the practice. This operation requires lifetime commitment to following in our practice and communication with me. You will much less weight and experience side effects if you don?t communicate or not following in the practice. Complications are rare and in our practice is about 1/10 of the national average. However, you can develop bleeding that may require transfusion (hasn?t happened for year in the practice), you may from complications (we did not have any deaths in the practice) and infections. Infections are usually a result of breakdown in communication or not understanding or following directions correctly. They are difficult to treat, they can happen during the first 6 weeks, they may require to be in the hospital for weeks or even months, not being able to eat by mouth and you may have drains and surgeries to try and correct the issue. Other risks and complications include possible conversion to an open procedure, leaks, small bowel obstruction, blood clots, cardiac, or pulmonary complications, as longterm complications such as ulcers, insufficient weight loss and vitamin deficiencies. 2. Nutritional counseling. Start with one CELEBRATE REBUILD protein (buy online with the link I gave you) shakes (ONE scoop in 8oz low fat unsweetened almond milk) at 7am-9am, 1 protein bar (CELEBRATE protein bars, buy at hospital's gift shop, buy online with the link I gave you) ) at 10am-12pm, another CELEBRATE REBUILD protein shake (ONE scoop in 8oz low fat unsweetened almond milk each) at 1pm-3pm, dinner at 4pm (10 forks of protein and 10 forks of salad/vegetables), AND another TWO Celebrate protein bars after dinner at 6pm-8pm and 9pm-11pm. So you do 2 protein shakes, 3 protein bars and one meal per day. Meal to include lean meat (beef, fish, pork, turkey, chicken), or swedish yogurt, or egg whites, or beans with a salad with olive oil and fruits (berries, pears, apples, kiwi). Avoid salt, breads, potatoes, rice, pasta, desserts. 3. Each shake would be drunk slowly, like coffee in a period of 2 hours. 4. Cut each bar in 4 pieces and eat each piece in 30min ?to make each bar last 2 hours. 5. I emphasized the importance of measuring accurately the food portion and measure it when serving the food in plate 6. The meal portions include 10 full-size forks of meat and 10 full-size forks of salad. You always eat the meat portion but you can replace up to 5 forks for salad/vegetables with rice, potatoes or pasta, or a fruit ?if you like. The less you do it the better weight loss will be. 7. One full-size fork is what it can be scooped on the fork without falling aside and not what can be bit with the fork. Use regular forks like those you find in a typical restaurant. 8.? Please buy the body composition scale we discussed and send me weight measurements as soon as possible and then once a week. Always include your diet and exercise plan. 9. Let me know if your treadmill can track the calories you burn 10.?Despite the tubal ligation, it is important of avoiding and for at least 18 months postoperatively and has been discussed at the infosession. 11. Goal is to lose at least 1.5-2lbs per week 12. Goal to lose 10% of your weight before surgery, which is about 25lbs. Ultimate weight goal: 220lbs before surgery 13. Please follow the diet plan exactly without any change. If you don't like something about the plan or you feel hungry you need to communicate with me so I can help you revise the plan. You should not change the plan yourself 14. To be scheduled for EGD to assess the stomach's anatomy. The possibility of biopsies was discussed. Patient needs to avoid use of NSAIDs and aspirin for 1 week prior to EGD. You must be on liquids only the day before your endoscopy. Risks of perforation and bleeding was discussed with the patient. This will be an outpatient procedure with IV sedation. Orders: Orders Hemoglobin A1c Today E66.01 - Morbid (severe) obesity due to excess calories H Pylori Breath Test Today E66.01 - Morbid (severe) obesity due to excess calories Complete Blood Count Auto Diff Today E66.01 - Morbid (severe) obesity due to excess calories Lipid Panel Today E66.01 - Morbid (severe) obesity due to excess calories IRON PROFILE Today E66.01 - Morbid (severe) obesity due to excess calories Vitamin B12 and Folate Today E66.01 - Morbid (severe) obesity due to excess calories Vitamin B1 Today E66.01 - Morbid (severe) obesity due to excess calories Vitamin A Today E66.01 - Morbid (severe) obesity due to excess calories TSH reflex Free T4 Today E66.01 - Morbid (severe) obesity due to excess calories Ferritin Today E66.01 - Morbid (severe) obesity due to excess calories Vitamin D 25-OH Total Today E66.01 - Morbid (severe) obesity due to excess calories US abdomen comp w elastography Today E66.01 - Morbid (severe) obesity due to excess calories Insulin Today E66.01 - Morbid (severe) obesity due to excess calories Comprehensive Met. Panel Today E66.01 - Morbid (severe) obesity due to excess calories Zinc Today E66.01 - Morbid (severe) obesity due to excess calories C Reactive Protein Today E66.01 - Morbid (severe) obesity due to excess calories XR chest 2V Today E66.01 - Morbid (severe) obesity due to excess calories ECG 12 lead EKG Today E66.01 - Morbid (severe) obesity due to excess calories FL upper GI w air Today E66.01 - Morbid (severe) obesity due to excess calories Referrals Nutrition/Dietitian Referral E66.01 - Morbid (severe) obesity due to excess calories Behavioral Health Referral E66.01 - Morbid (severe) obesity due to excess calories
[2025-01-26 09:08] VITALS: BP 134/63; PULSE 94; TEMP 36.2; O2SAT 97; BMI 43.8
== END 2025-01-26 10:02 | disposition home or self-care (01) ==
LOC: HO.HBS 08:58
PROVIDERS: PCP Family Medicine; Visit Provider Surgery
DX: E66.01 Morbid (severe) obesity due to excess calories (principal); Z68.41 Body mass index [BMI] 40.0-44.9, adult
CPT/HCPCS: 99205

== ENCOUNTER 2025-01-26 08:57 | Outpatient (REF) | payer MEDICAID, SELFPAY ==
--- NOTE | ~2025-01-26 | XR_ITS ---
EXAMINATION: XR CHEST CLINICAL INFORMATION: E66.01 - Morbid (severe) obesity due to excess calories COMPARISON: November 30, 2022. TECHNIQUE: PA and lateral views FINDINGS: No consolidation, pleural effusion or pneumothorax. Cardiomediastinal silhouette size is normal. Multilevel spondylosis, axial skeleton. Vascular clips right upper quadrant abdomen. Patient's large body habitus. XR/XR chest 2V IMPRESSION: No acute airspace disease. Stable chest. Status post cholecystectomy. Electronically signed by: Oscar Duff MD 01/26/2025 11:23 AM [facility]
--- NOTE | 2025-01-26 10:25 | ECG_ITS ---
Test Reason : obesity Blood Pressure : */* mmHG Vent. Rate : 80 BPM Atrial Rate : 80 BPM P-R Int : 134 ms QRS Dur : 124 ms QT Int : 394 ms P-R-T Axes : 47 0 33 degrees QTcB Int : 454 ms Normal sinus rhythm Right bundle branch block Abnormal ECG No previous ECGs available Referred By: Ephraim Do Electronically Signed By: ABENA RIGGS MD
[2025-01-26 10:27] LABS: MANUAL DIFF FLAG NO
[2025-01-26 10:50] LABS: Hematocrit 36.6 % (37.0-47.0); Hemoglobin 11.8 g/dl (12.0-16.0); Imm Gran Abs Auto 0.01 X10*3/uL (0.00-0.03); Imm Gran Pct Auto 0.1 % (0.0-0.4); Lymphocytes Absolute Auto 1.8 X10*3/uL (1.2-4.9); Mean Corpuscular HGB Conc 32.2 g/dl (31.0-35.0); Mean Corpuscular Hemoglobin 30.0 pg (27.0-33.0); Mean Corpuscular Volume 93.1 fL (80.0-98.0); NRBC Abs Auto 0.000 X10*3/uL (0.0-0.012); NRBC Pct Auto 0.0 /100WBC (0.0-0.2); Platelet Count 223 X10*3/uL (160-400); Red Blood Count 3.93 X10*6/uL (4.20-5.50); White Blood Count 6.9 X10*3/uL (4.8-10.8)
--- OUTSIDE RECORDS SUMMARY | 2025-01-26 11:39 | XMS_ITS | Clinical Summary ---
Author Organization [employer] Address [address] [facility] [address] [place] [address] Care Team Providers Care Aircraft Powertrain Repairer Name Role Phone Susi Bolton MD Primary Care Provider [phone] Allergies Active Allergy Reactions Criticality Noted Date Comments Acetaminophen Rash Low 08/07/2013 Ketorolac Other reaction(s): swelling: rash Morphine Hives 07/06/2020 Nortriptyline Itching 10/20/2021 Medications Creon 6000-44358 units capsule TAKE 1 CAPSULE BY MOUTH FOUR TIMES DAILY BEFORE A MEAL. DO NOT EXCEED 98038 UNIT / KG LIPASE PER 24 HOURS 02/01/20 22 Active Citrucel 500 MG tablet TAKE 1 TABLET BY MOUTH DAILY WITH FULL GLASS OF WATER 01/04/20 22 Active Diclofenac Sodium 1 % gel APPLY 2 GRAMS TOPICALLY FOUR TIMES DAILY TO AFFECTED AREAS 100 g 04/17/19 24 Active polyethylene glycol, PEG, 3350 (MiraLax) 17 GM/SCOOP powder Take 17 g by mouth Once per day. 527 g 2 09/21/19 24 Active chlorhexidine (Peridex) 0.12 % solution SWISH AND SPIT WITH 15ML BY MOUTH NEEDED IN THE MORNING, NOON AND AT BEDTIME FOR UP TO 5 DAYS 473 mL 12/28/19 24 Active cholecalcifero l VITAMIN D (Vitamin D-3) 50 MCG (1999) capsule Take 1 capsule (50 mcg) by mouth Once per day. 120 capsule 3 08/19/19 25 Active Multiple Vitamin (Multivitamin) tablet TAKE ONE TABLET DAILY 90 tablet 1 12/12/19 25 Active senna (Senokot) 8.6 MG tablet TAKE TWO TABLETS AT BEDTIME 180 tablet 1 12/12/19 Active Berberine Chloride (BERBERINE HCI PO) Take by mouth. Active Berberine Chloride (Berberine HCI) 500 MG capsule Take 1,000 mg by mouth 2 times daily. 120 capsule 5 01/17/20 25 Active Tirzepatide-We ight Management 10 MG/0.5ML solution auto-injector Inject 0.5 mL (10 mg) under the skin 1 (one) time per week. 2 mL 3 01/17/20 25 Active Tirzepatide-We ight Management (Zepbound) 7.5 MG/0.5ML solution auto-injector Inject 0.5 mL (7.5 mg) under the skin 1 (one) time per week. 2 mL 3 10/25/19 25 025 Discontinued(Th erapy completed) Tirzepatide-We ight Management 10 MG/0.5ML solution auto-injector Inject 0.5 mL (10 mg) under the skin 1 (one) time per week. 2 mL 3 01/17/20 25 025 Discontinued(Re order (will not trigger notification to Pharmacy)) Active Problems Problem Noted Date Diagnosed Date Abnormal uterine bleeding 08/18/2024 Assessment & Plan (08/18/2024 10:58 AM EDT): Patient has undergone a previous endometrial ablation but continues to experience issues. Transvaginal ultrasound shows scar appearance in the cervix. Patient may require further intervention for menstrual management. Plan: - Discuss treatment options including repeat ablation, hysterectomy, or progesterone IUD placement - Referral to rear load truck driver for further evaluation and management Pancreatic insufficiency 08/18/2024 Encounter for screening mamm ogram for malignant neoplasm of breast 08/18/2024 Lumbar back pain 08/18/2024 Assessment & Plan (08/18/2024 10:59 AM EDT): Patient reports multiple areas of pain including left foot (plantar fasciitis), right hip, lower back, and shoulder. Limited range of motion in the shoulder suggests possible rotator cuff issues. Patient also mentions fibromyalgia-like symptoms. Weight and limited mobility are likely contributing factors to joint discomfort. Plan: - Order X-rays of right hip, left hip, and back to evaluate for arthritis - Consider physical therapy referral for shoulder and hip pain - Recommend low-impact exercises like elliptical machine use - Follow-up in 8 weeks for hip pain reassessment - will order brace to help with her back pain Physical exam, annual 08/18/2024 Assessment & Plan (08/18/2024 10:53 AM EDT): 43 y.o. female here for annual physical examination Reviewed BMI and BP with patient. Nutritional recommendations: Recommended to decrease soda and sugary beverage consumption. Recommended at least 20 g per meal of protein to assist with satiety. Exercise recommendations: Recommended at least 150 min/week of moderate intensity exercise. BH screen done and reviewed Care Gaps reviewed IZ reviewed and discussed w/ patient Updated/reviewed PMH, Surghx, Family Hx & Social Hx Chronic right hip pain 07/19/2023 Severe obesity (CMS/HCC) 06/22/2022 Assessment & Plan (01/20/2025 2:36 PM EST): Patient currently on pharmacotherapy to assist with management of her weight. Starting weight: 252 lbs Current weight: 244 lbs Review continue lifestyle modifications. Patient was titrated up to treatment dose. Tolerated titration well, but with poor response. Patient acknowledges dietary challenges related to work schedule and irregular eating patterns. - Increase medication dose - Referral to hydraulic rubbish compactor mechanic for dietary counseling - Patient to call [phone] to schedule required bariatric surgery seminar - Follow-up in 1 month instead of 3 months for closer weight monitoring Discussed calorie deficit, recommended reduction of 20-30% of maintenance calories; hydraulic rubbish compactor mechanic referral offered. Recommended to decrease soda and sugary beverage consumption. Recommended at least 20 g per meal of protein to assist with satiety. Recommended at least 150 min/week of moderate intensity exercise. Assessment & Plan (08/18/2024 10:55 AM EDT): Patient reports has not taken Zepbound for more than 4 weeks given misunderstanding with provider that was covering. Will restart medication, needs nurse visit in 1 month to assess for weight and need to adjust if necessary. - Schedule monthly weight check appointments with nurse for dose adjustments - Referral to bariatric surgeon for potential gastrointestinal bypass surgery - Encourage regular exercise, suggesting use of elliptical machine to reduce joint stress - Recommend follow-up in 4 weeks for weight check Assessment & Plan (06/05/2024 9:06 AM EDT): Reinforced low calorie intake, exercise 15-20 min every other day, continue zepbound, follow up 3 months Assessment & Plan (11/22/2023 10:01 AM EDT): Starting weight 252 lbs. Current weight 221 lbs. Total weight loss 31 lbs since June 2022 (phen/top) Starting weight for weight 241 lbs. Current weight 221 lbs, since May 10 (wegovy/ phen/top) Pt has lost 9 lbs. Discussed additional treatments and side effects. Discussed with Pt the importance of going to hydraulic rubbish compactor mechanic. BP is at goal. Pt declined referral [...] recommended reduction of 20-30% of maintenance calories; hydraulic rubbish compactor mechanic referral offered. Recommended to decrease soda and [...] recommended reduction of 20-30% of maintenance calories; hydraulic rubbish compactor mechanic referral offered. Recommended to decrease soda and [...] 3 Plantar fasciitis of left foot 06/22/2022 Assessment & Plan (08/18/2024 10:57 AM EDT): Patient requested insoles for plantar fasciitis as the ones she has prescribed are worn out. Will send script. Tobacco dependence syndrome 08/04/2014 Resolved Problems Problem Noted Date Diagnosed Date Resolved Date Class 2 obesity 08/18/2024 08/18/2024 Right bundle branch block 08/18/2024 Encounter for health-related screening 07/19/2023 08/18/2024 Assessment & Plan (07/19/2023 11:02 AM EDT): Reviewed Care Gaps, immunizations, currently working on diet/exercise. Rtc in 1 yr of CPE Lead exposure 04/11/2023 08/18/2024 Vaginal bleeding 10/30/2022 08/18/2024 Assessment & Plan (09/02/2023 8:08 PM EDT): Patient had previous surgery with DRAWER IN STITCH BONDING MACHINE for an endometrial ablation around 1 yr ago, vaginal bleeding from uterus. Recommended f/up with DRAWER IN STITCH BONDING MACHINE Assessment & Plan (10/30/2022 10:00 AM EDT): Patient with history of irregular menses and complaints of abnormal uterine bleeding present for 2 weeks. DRAWER IN STITCH BONDING MACHINE appointment scheduled for 11/02/22. Will start on provera 20 mg x3 a day for 7 days and send for pelvic transvaginal Ultrasound and labs. Oral infection 09/08/2022 08/18/2024 Assessment & Plan (06/05/2024 9:07 AM EDT): Will send augmentin, told to follow up with dentist Assessment & Plan (04/11/2023 2:20 PM EST): Patient still presents visit with complaints of infected tooth, therefore, patient will be provided with antibiotics to treat concern. Advise to notify office if symptoms don't improve. Assessment & Plan (09/08/2022 3:27 PM EDT): Patient with tooth infection with associated pain. Will start on Augmentin for x 14 days. Encounters Date Type Department Care Team Description 01/26/2025 Orders Only GENERIC EXTERNAL DATA DEPARTMENT Provider, Generic External Data 01/16/2025 9:00 AM EDT Office Visit [facility] [address] [place] [address] Susi Bolton MD Severe obesity (CMS/HCC) (HCC) (Primary Dx) 01/16/2025 Travel 01/09/2025 Patient Outreach [facility] [address] [place] [address] Susi Bolton MD Pre-visit Planning (Pre visit planning unable to LVM ) 12/09/2024 Refill [facility] [address] [place] [address] Pavel [place] MD 11/04/2024 Orders Only GENERIC EXTERNAL DATA DEPARTMENT Provider, Generic External Data 10/31/2024 Telephone [facility] [address] [place] [address] Susi Bolton MD Prior Authorization from Last 3 Months Immunizations Immunization Administration Dates Next Due Influenza injectable quadriv [...] Answer Date Recorded Patient Health Questionnaire-9 Score 9 08/18/2024 Patient Health Questionnaire-9 Score 9 08/18/2024 Last PHQ-9: Questionnaire Data Not on file 0 08/18/2024 Housing Stability Answer Date Recorded What is your housing situation today? I have sam resendiz 06/05/[address] you li ve. Do you have problems with any of the following? None of the above 06/05/2024 Food Insecurity Answer Date Recorded Within the past 12 months, y ou worried that your food would run out before you got money to buy more: Never True 06/05/2024 Within the past 12 months,th e food you bought just didn't last and you didn't have enough money to get more: Never True Transportation Answer Date Recorded In the past 12 months, has l ack of transportation kept you from medical appts, meetings, work or from getting things needed for daily living? No 06/05/2024 Utilities Answer Date Recorded In the past 12 months, has t he electric, gas, oil or water company threatened to shut off services in your home? No 06/05/2024 Depression Answer Date Recorded Patient Health Questionnaire-2 Score 1 08/18/2024 Internet Access Answer Date Recorded Internet Access Q1 Yes 06/05/2024 Internet Access Q2 Not on file 06/05/2024 Comments No Sex and Gender Information Value Date Recorded Sex Assigned at Female 01/16/2022 10:22 AM EDT Legal Sex Female 10:22 AM EDT Gender Identity Female 01/16/2022 10:22 AM EDT Sexual Orientation Straight 01/16/2022 10 :22 AM EDT Last Filed Vital Signs Vital Sign Reading Time Taken Comments Blood Pressure 130/77 01/16/2025 8:55 AM EDT Pulse 82 01/16/2025 8:55 AM EDT Temperature 36.4 C (97.6 F) 01/16/2025 8:55 AM EDT Respiratory Rate 20 01/16/2025 8:55 AM EDT Oxygen Saturation 98% 01/16/2025 8:55 AM EDT Inhaled Oxygen Concentration - - Weight 111 kg (244 lb) 01/16/2025 8:55 AM EDT Height 160 cm (5' 3 ) 01/16/2025 8:55 AM EDT Body Mass Index 43.22 01/16/2025 8:55 AM EDT Plan of Treatment Upcoming Encounters Date Type Department Care Team (Late st Contact Info) Description 02/11/2025 9:00 AM EST Office Visit [facility] [address] [place] [address] Susi Bolton MD [address] [place] [address] Health Maintenance Due Date Last Done Comments Dental Oral Exam 1980 Dental Prophylaxis 1980 Disability Screening 1980 Family Planning (PISQ) 1996 HPV Vaccines (1 - 3-dose series) 1996 Hepatitis B Vaccines (1 of 3 - 19+ 3-dose series) 2000 Dental X-Ray: Bitewings 01/10/2025 01/10/2024 Depression Monitoring 02/17/2025 08/18/2024 , 08/18/2024 SDOH Screening 06/05/2025 06/05/2024 Alcohol/Substance Use Screening 08/18/2025 08/18/2024 Influenza Vaccine (#1) 2025 , 12/11/2017 Postponed from 11/17/2024 (Patient Refused) Mammogram 10/23/2025 10/23/2024, 09/12/2023, 09/06/2022 COVID-19 Vaccine ( - 2024-2 6 season) 2026 09/09/2021, 04/11/2021, 03/21/2021 Postponed from 11/17/2024 (Patient Refused) Tobacco Screening 01/16/2026 01/16/2025 Dental X-Ray: Full Mouth 03/06/2026 03/05/2023 Cervical Cancer Screening 11/03/2027 HPV/Cotest 11/03/2027 10/24/2016 Pap Smear 11/03/2027 11/02/2022, 07/06/2020 Lipid Panel 07/18/2028 07/19/2023, 04/21/2021 Zoster Vaccines (1 of 2) 10/10/2031 DTaP/Tdap/Td Vaccines (3 - T d or Tdap) 04/11/2033 04/11/2023, 11/01/2011 RSV Patients and Patients Aged 60 years or older (1 - 1-dose 75+ series) 2056 HIV Screening Completed 06/04/2019 Hepatitis C Screening Completed 06/04/2019 HIB Vaccines Aged Out No longer eligi ble based on patient's age to complete this topic Hepatitis A Vaccines Aged Out No long er eligible based on patient's age to complete this topic IPV Vaccines Aged Out No longer eligi ble based on patient's age to complete this topic Meningococcal B Vaccine Aged Out No l onger eligible based on patient's age to complete this topic Meningococcal Vaccine Aged Out No elsi yobani eligible based on patient's age to complete this topic Pneumococcal Vaccine: Pediatrics (0 to 5 Years) and At-Risk Patients (6 to 49) Years Aged Out No longer eligible b ased on patient's age to complete this topic RSV under 20 months Aged Out No longe r eligible based on patient's age to complete this topic Rotavirus Vaccines Aged Out No longer eligible based on patient's age to complete this topic Procedures Procedure Name Priority Date/Time Associated Diagnosis Comments XR CHEST 2 VIEWS Routine 01/26/2025 10:5 9 AM EST HEMOGLOBIN A1C Routine 01/26/2025 10:24 AM EST CBC WITH AUTO DIFFERENTIAL Routine 01/26/2025 10:24 AM EST VITAMIN D 25-OH (D2 AND D3) Routine 11/04/2024 11:02 AM EDT VITAMIN B12/FOLATE, SERUM PANEL Routine 11/04/2024 11:02 AM EDT TSH W/REFLEX TO FT4 Routine 11/04/2024 1 1:02 AM EDT LIPASE Routine 11/04/2024 11:02 AM EDT BI MAMMOGRAM SCREENING TOMOSYNTHESIS BILATERAL Routine 10/23/2024 10:00 AM EDT Encounter for screening mammogram for malignant neoplasm of breast BITEWING - SINGLE RADIOGRAPHIC IMAGE Routine 01/10/2024 11:00 AM EDT LIPID PANEL, STANDARD Routine 07/19/2023 10:40 AM [...] Recently Relevant to Health Maintenance Results * XR Chest 2 Views (01/26/2025 10:59 AM EST) Anatomical Region Laterality Modality Chest Radiographic Estelle ging 01/26/2025 10:5 9 AM EST Narrative 01/26/2025 11:26 AM EST [address] [address] XRay Report Signed Patient: Cristiane Galvan MR#: [id number] : 1980 Acct:[id number] Age/Sex: 44 / F ADM Date: 01/26/25 Loc: HO.XRAY Attending Dr: Ephraim Do MD Ordering Physician: Ephraim Do MD Date of Service: 01/26/25 Procedure(s): XR chest 2V Accession Number(s): [id number] cc: Ephraim Do MD; Susi Bolton MD Reason for Exam: E66.01 - Morbid (severe) obesity due to excess calories EXAMINATION: XR CHEST CLINICAL INFORMATION: E66.01 - Morbid (severe) obesity due to excess calories COMPARISON: November 30, 2022. TECHNIQUE: PA and lateral views FINDINGS: No consolidation, pleural effusion or pneumothorax. Cardiomediastinal silhouette size is normal. Multilevel spondylosis, axial skeleton. Vascular clips right upper quadrant abdomen. Patient's large body habitus. XR/XR chest 2V IMPRESSION: No acute airspace disease. Stable chest. Status post cholecystectomy. Electronically signed by: Oscar Duff MD 01/26/2025 11:23 AM EST Dictated By: Oscar Spaulding MD Signed By: <Electronically signed by Oscar Thomas MD in OV> 01/26/25 1123 DD/ 1059 TD/TT: 01/26/25 1109 Bench Mover: Procedure Note Donotuseinterpreter, Image - 01/26/[address] [address] XRay Report Signed Patient: Cristiane Galvan MR#: [id number] : 1980Acct:[id number] Age/Sex: 44 / FADM Date: 01/26/25 Loc: HO.XRAY Attending Dr: Ephraim Do MD Ordering Physician: Ephraim Do MD Date of Service: 01/26/25 Procedure(s): XR chest 2V Accession Number(s): [id number] cc: Ephraim Do MD; Susi Bolton MD Reason for Exam: E66.01 - Morbid (severe) obesity due to excess calories EXAMINATION: XR CHEST CLINICAL INFORMATION: E66.01 - Morbid (severe) obesity due to excess calories COMPARISON: November 30, 2022. TECHNIQUE: PA and lateral views FINDINGS: No consolidation, pleural effusion or pneumothorax. Cardiomediastinal silhouette size is normal. Multilevel spondylosis, axial skeleton. Vascular clips right upper quadrant abdomen. Patient's large body habitus. XR/XR chest 2V IMPRESSION: No acute airspace disease. Stable chest. Status post cholecystectomy. Electronically signed by: Oscar Duff MD 01/26/2025 11:23 AM EST Dictated By: Oscar Spaulding MD Signed By: <Electronically signed by Oscar Thomas MDin OV> 01/26/25 1123 DD/ 1059 TD/TT: 01/26/25 1109 Bench Mover: [facility] External Provider IMG XR PROCEDURES Edited Result - Final * (ABNORMAL) CBC auto differential (01/26/2025 10:24 AM EST) White Blood Count 6.9 4.8 - 10.8 X10*3/uL [facility] Red Blood Count 3.93(L) 4.20 - 5.50 X10*6/uL [facility] Hemoglobin 11.8(L) 12.0 - 16.0 g/dl [facility] Hematocrit 36.6(L) 37.0 - 47.0 % [facility] Mean Corpuscular Volume 93.1 80.0 - 98.0 fL [facility] Mean Corpuscular Hemoglobin 30.0 27.0 - 33.0 pg [facility] Mean Corpuscular HGB Conc 32.2 31.0 - 35.0 g/dl [facility] Red Cell Distribution Width 13.0 11.0 - 16.0 % [facility] Platelet Count 223 160 - 400 X10*3/uL [facility] Mean Platelet Volume 10.4 9.4 - 12.3 fL [facility] Neutrophils Percent Auto 65.7 45 - 73 % [facility] Imm Gran Pct Auto 0.1 0.0 - 0.4 % [facility] Lymphocytes Percent Auto 26.1 20 - 40 % [facility] Monocytes Percent Auto 6.1 2 - 11 % [facility] Eosinophils Percent Auto 1.4 0 - 4 % [facility] Basophils Percent Auto 0.6 0 - 2 % [facility] NRBC Pct Auto 0.0 0.0 - 0.2 /100WBC [facility] Neutrophils Absolute Auto 4.6 2.0 - 8.3 x10*3/uL [facility] Imm Gran Abs Auto 0.01 0.00 - 0.03 X10*3/uL [facility] Lymphocytes Absolute Auto 1.8 1.2 - 4.9 X10*3/uL [facility] Monocytes Absolute Auto 0.4 0.1 - 1.2 X10*3/uL [facility] Eosinophils Absolute Auto 0.1 0.0 - 0.4 X10*3/uL [facility] Basophils Absolute Auto 0.0 0.0 - 0.2 X10*3/uL [facility] NRBC Abs Auto 0.000 0.0 - 0.012 X10*3/uL [facility] 01/26/2025 10:2 4 AM EST 01/26/2025 10:24 AM EST us Generic External Data Provider LAB BLOOD ORDERAB LES Final Result Performing Organization Address [facility] Co de Phone Number [facility] [address] [place] [phone] * Hemoglobin A1c (01/26/2025 10:24 AM EST) Hemoglobin A1c 5.5 <6.0 % [facility] Comment:Hemoglobin A1C Refer ence Range Adults: 4.8 - 6.0 % Non diabetic: < 6.0 % Goal: < 7.0 %Additional Action Suggested: > 8.0 %Note: Hemoglobin A1c results are invalid for patients with abnormal amounts of HbF. Blood transfusions may impact the HbA1c concentration in the patient sample. Estimated Average Glucose 111 mg/dL [facility] Comment:eAG = Estimated ave rage glucose which is %A1C expressed asaverage glucose, using the formula of the M5E-AyqnyvzZvguikf Glucose study (ADAG), Diabetes Care, Vol.31,#8,Oct. 2007 01/26/2025 10:2 4 AM EST 01/26/2025 10:24 AM EST Generic External Data Provider LAB BLOOD ORDERAB LES Final Result Performing Organization Address [facility] de Phone Number [facility] [address] [place] [phone] * (ABNORMAL) VITAMIN D 25-OH (D2 AND D3) (11/04/2024 11:02 AM EDT) Vitamin D, 25-OH, D2 <4 ng/mL [facility] Comment:This test was develo ped and its analytical performancecharacteristics have been determined by [employer] [place], [place]. It hasnot been cleared or approved by the U.S. Food and DrugAdministration. This assay has been validated pursuantto the CLIA regulations and is used for clinicalpurposes.THIS TEST WAS PERFORMED AT:[id number] [place] [id number] AVILA MD,PHD Vitamin D, 25-OH, D3 21 ng/mL [facility] Comment:This test was diogenes kohler and its analytical performancecharacteristics have been determined by [employer] [place], [place]. It hasnot been cleared or approved by the U.S. Food and DrugAdministration. This assay has been validated pursuantto the CLIA regulations and is used for clinicalpurposes. Vitamin D, 25-OH, Total 21(A) 30 - 100 ng/mL [facility] Comment:Vitamin D, 25-Hydrox y reports concentrations of twocommon forms, 25-OHD2 and 25-OHD3. 25-OHD3 indicatesboth endogenous production and supplementation.25-OHD2 is an indicator of exogenous sources such asdiet or supplementation. Therapy is based onmeasurement of Total 25-OHD, with levels <20 ng/mLindicative of Vitamin D deficiency, while levelsbetween 20 ng/mL and 30 ng/mL suggest insufficiency.Optimal levels are > or = 30 ng/mL.For additional information, please refer [email or web address]/faq/PUD598(This link is being provided for informational/educational purposes only.) 11/04/2024 11:0 2 AM EDT 11/04/2024 11:02 AM EDT us Generic External Data Provider LAB BLOOD ORDERAB LES Final Result [facility] [address] [place] [phone] * Vitamin B12 (Cobalamin) and Folate Panel, Serum (11/04/2024 11:02 AM EDT) Vitamin B12 264 200 - 900 pg/mL [facility] Comment:NORMAL 200-900 PG/ML INDETERMINATE 160-199 PG/ML DEFICIENT < 160 PG/ML Folate 7.9 > or = 4.0 ng/mL [facility] Comment:Reference Values:> o r = 4.0 ng/mL< 4.0 ng/mL suggests folate deficiency Methotrexate, aminopterin and folinic acid(leucovorin) are chemotherapeutic agents whose molecularstructures are similar to folate; therefore, the Architectfolate assay cannot be used for patients using these drugs. 11/04/2024 11:0 2 AM EDT 11/04/2024 11:02 AM EDT Generic External Data Provider LAB BLOOD ORDERAB LES Final Result Performing Organization Address [facility] Co de Phone Number [facility] [address] [place] [phone] * TSH with Reflex to Free T4 (11/04/2024 11:02 AM EDT) TSH reflex Free T4 0.86 0.32 - 4.0 uIU/mL [facility] 11/04/2024 11:0 2 AM EDT 11/04/2024 11:02 AM EDT Generic External Data Provider LAB BLOOD ORDERAB LES Final Result Performing Organization Address [facility] de Phone Number [facility] [address] [place] [phone] * Lipase (11/04/2024 11:02 AM EDT) Lipase 28 8 - 78 U/L [facility] 11/04/2024 11:0 2 AM EDT 11/04/2024 11:02 AM EDT Generic External Data Provider LAB BLOOD ORDERAB LES Final Result Performing Organization Address [facility] de Phone Number [facility] [address] [place] [phone] * BI Mammogram Screening Tomosynthesis Bilateral (10/23/2024 10:00 AM EDT) Anatomical Region Laterality Modality Breast Bilateral Mammography 10/23/2024 10:0 0 AM EDT Narrative 11/01/2024 10:21 PM EDT [facility] [address] [place] [address] Mammography Report Signed Patient: Cristiane Galvan MR#: [id number] : 1980 Acct:[id number] Age/Sex: 44 / F ADM Date: 10/23/24 Loc: HO.MAMMO Attending Dr: Susi Bolton MD Ordering Physician: Susi Bolton MD Results: 1Nega tive Date of Service: 10/23/24 Follow Up: 1 Year From Orig inal Mammogram Procedure(s): MM tomosynthesis screening BI Accession Number(s): [id number] cc: Susi Bolton MD EXAMINATION: MM SCREENING DIGITAL BREAST TOMOSYNTHESIS, BILATERAL CLINICAL INFORMATION: Screening. Asymptomatic. COMPARISON: September 12, 2023, and September 06, 2022 TECHNIQUE: Digital breast tomosynthesis is performed in both the craniocaudal and mediolateral oblique views along with computer-aided detection (CAD). Best possible images according to the technologist's notes. FINDINGS: BREAST COMPOSITION: There are scattered areas of fibroglandular density (ACR BI-RADS breast composition Category b). BILATERAL BREASTS: No significant masses, suspicious calcifications or other abnormalities are seen in either breast. MM/MM tomosynthesis screening BI IMPRESSION: BILATERAL BREASTS: Negative, no mammographic evidence of malignancy. Normal interval follow-up is recommended in 12 months. ASSESSMENT: BI-RADS 1 - Negative RECOMMENDATION: Routine annual mammography screening. FOLLOW-UP: 1 year F/U This examination should not preclude the clinical evaluation of a suspicious palpable abnormality. This patient's information was entered into a reminder system with a target due date for their next mammogram. Electronically signed by: Rajesh Blair MD 11/01/2024 10:19 PM EDT Dictated By: Rajesh Blair MD Signed By: <Electronically signed by Rajesh Blair MD in OV> 11/01/24 2219 DD/ 1000 TD/TT: 10/23/24 1029 Bench Mover: Procedure Note Donotuseinterpreter, Image - 11/01/2024 [facility] [address] [place] [address] Mammography Report Signed Patient: Cristiane Galvan MR#: [id number] : 1980Acct:[id number] Age/Sex: 44 / FADM Date: 10/23/24 Loc: HO.MAMMO Attending Dr: Susi Bolton MD Ordering Physician: Susi Bolton MDResults: 1Nega tive Date of Service: 10/23/24Follow Up: 1 Year From Orig inal Mammogram Procedure(s): MM tomosynthesis screening BI Accession Number(s): [id number] cc: Susi Bolton MD EXAMINATION: MM SCREENING DIGITAL BREAST TOMOSYNTHESIS, BILATERAL CLINICAL INFORMATION: Screening. Asymptomatic. COMPARISON: September 12, 2023, and September 06, 2022 TECHNIQUE: Digital breast tomosynthesis is performed in both the craniocaudal and mediolateral oblique views along with computer-aided detection (CAD). Best possible images according to the technologist's notes. FINDINGS: BREAST COMPOSITION: There are scattered areas of fibroglandular density (ACR BI-RADS breast composition Category b). BILATERAL BREASTS: No significant masses, suspicious calcifications or other abnormalities are seen in either breast. MM/MM tomosynthesis screening BI IMPRESSION: BILATERAL BREASTS: Negative, no mammographic evidence of malignancy. Normal interval follow-up is recommended in 12 months. ASSESSMENT: BI-RADS 1 - Negative RECOMMENDATION: Routine annual mammography screening. FOLLOW-UP: 1 year F/U This examination should not preclude the clinical evaluation of a suspicious palpable abnormality. This patient's information was entered into a reminder system with a target due date for their next mammogram. Electronically signed by: Rajesh Blair MD 11/01/2024 10:19 PM EDT Dictated By: Rajesh Blair MD Signed By: <Electronically signed by Rajesh Blair MD in OV> 08/16/25 2219 DD/ 1000 TD/TT: 10/23/24 1029 Bench Mover: us Susi Bolton MD IMG BI PROCEDURES Final Resul t * Lipid Panel, Standard (07/19/2023 10:40 AM EDT) Triglycerides 57 <150 mg/dL [facility] Comment:Desirable Triglyceri de: less than 150 mg/dLBorderline High Triglyceride 150-199 mg/dLHigh Triglyceride: 200-499 mg/dLVery High Triglyceride: greater than or equal to 5OO mg/dL Cholesterol 162 <200 mg/dL [facility] Comment:Desirable Cholestero l: less than 200 mg/dLBorderline High Cholesterol: 200-239 mg/dLHigh Cholesterol: greater than 239 mg/dL LDL Cholesterol Calculated 92 <100 mg/dL [facility] Comment:Desirable LDL: less than 100 mg/dLNear Optimal/Above Optimal LDL: 110- 129 mg/dLBorderline High LDL: 130-159 mg/dLHigh LDL: 160-189 mg/dLVery High LDL: greater than or equal to 190 mg/dL HDL Cholesterol 59 >40 mg/dL [facility] Comment:Desirable HDL: great er than 40 mg/dL Note: This HDL assay may give artificially low results in patients with liver disease. Blood Venous blood specimen / Unknown 07/19/2023 10:40 AM EDT 07/19/2023 2:02 PM EDT us Susi Bolton MD LAB BLOOD ORDERABLES Final Re sult [facility] [address] [place] [address] [phone] * Pap Smear (11/02/2022 10:46 AM EDT) 11/02/2022 10:4 6 AM EDT 11/03/2022 9:00 AM EDT Narrative [facility] - 11/21/2022 9:41 AM EDT ----- ------- Name: Cristiane Silva Age/Sex: 42/F : 1980 Unit#: [id number] Attend Dr: Maricarmen Muro Re11/02/22 Status: DEP REF Location: [facility] Disch: ----- ------- SPEC : [id number] RECD: 11/03/22 STATUS: DELLA HUTCHINSON NUM: [id number] BRITTANEY: 11/02/[address] [facility] [address]: Maricarmen Muro [facility] ENTERED: 11/03/22 SP TYPE: Pap Smr OTHR DR: Susi Bolton MD ORDERED: Pap Smear Interpretation Satisfactory for evaluation. Coccobacilli consistent with shift in vaginal carlota. Negative for intraepithelial lesion or malignancy. HPV mRNA E6/E7: NOT DETECTED This assay detects E6/E7 viral messenger RNA (mRNA) from 14 high-risk HPV types (16, 18, 31, 33, 35, 39, 45, 51, 52, 56, 58, 59, 66, 68) HPV testing performed by [facility], [place], [place]. See reference laboratory pion of the EMR for entire report. Clinical Information LMP:10/19/22 Previous PAP test:10/24/16, WNL Material Received ThinPrep-Cervical Copies To: Maricarmen Muro[address] [address] Susi Bolton MD [address] [place] [address] ----- ------- Signed (signature on file) SIOMARA Díaz ([facility]) 11/21/22 0941 ----- ------- END OF REPORT [facility] External Provider LAB CYT OLOGY ORDERABLES Final Result Performing Organization Address City/[facility]/ZIP Co de Phone Number [facility] [address] [place] [address] [phone] * HEPATITIS C ANTIBODY RFLX (06/04/2019 11:23 AM EDT) HEPATITIS C ANTIBODY NONREACTIVE NONREACTIVE [facility] Comment: Antibodies to HCV not detected; does not exclude early acute HCV infection. 06/04/2019 11:2 3 AM EDT Nithya Asif MD HISTORICAL/NON ORDERABLE LABS Fi nal Result Performing Organization Address City/[facility]/ZIP Co de Phone Number [facility] [address] * HIV AB/AG (06/04/2019 11:23 AM EDT) HIV AG/AB NONREACTIVE [facility] Comment: HIV-1 p24 Ag and/or HIV-1/HIV-2 Ab not detected. A test result that is nonreactive does not exclude the possibility of exposure to or infection with HIV-1 and/or HIV-2. Nonreactive results in this assay for individuals with prior exposure to HIV-1 and/or HIV-2 may be due to antigen and antibody levels that are below the limit of detection of this assay. The [employer] HIV Ag/Ab Combo assay result and supplemental assay results should be interpreted in conjunction with the patient's clinical presentation, history and other laboratory results. If the results are inconsistent with clinical evidence, additional testing is suggested to confirm the result. 06/04/2019 11:2 3 AM EDT us Nithya Asif MD HISTORICAL/NON ORDERABLE LABS Fi nal Result [facility] [address] * HPV mRNA E6/E7 (10/24/2016 3:20 PM EDT) Pathologist [facility] HPV mRNA E6/E7 Not Detected NOT DETECTED [facility] Comment: This test was performed using the APTIMA(R) HPV Assay ([employer] This assay detects E6/E7 viral messenger RNA (mRNA) from 14 high-risk HPV types (16,18,31,33,35,39,45,51, 52,56,58,59,66,68). For additional information please refer to: http://education.[employer].Ali/faq/LJA363x8 (This link is being provided for informational/ educational purposes only.) Test Performed by [employer], [facility], [address] [place] [id number] Misha Avila M.D., Ph.D., Director of Laboratories , [facility] [id number] Please note: Effective 11/29/2015, HPV testing will be performed using [employer]'s APTIMA test which targets mRNA. Detecting mRNA instead of DNA, as in older methods, offers significant improvements in specificity. 10/24/2016 3:20 PM EDT Lupe Mikey SHI HISTORICAL/NON ORDERABLE LABS Final Result [facility] [address] from Last 3 Months or Most Recently Relevant to Health Maintenance Insurance [facility] C3 DENTAL-[facility] MEDICAID STAND ADULT Care Teams Aircraft Powertrain Repairer Relationship Specialty Start Date End Date Susi Bolton MD [address] [place] [address] PCP - General Family Medicine 07/29/21
--- OUTSIDE RECORDS SUMMARY | 2025-01-26 11:39 | XMS_ITS | Encounter Summary ---
Author Organization [employer] Address [address] [place] [address] Care Team Providers Care It Application Architect Name Role Phone Susi Bolton MD Primary Care Provider [phone] Reason for Visit * Reason Comments Med Refill Encounter Details Date Type Department Care Team ([facility] st Contact Info) Description 12/27/2023 Refill [facility] ADULT DENTAL [address] [place], [place] [phone] Wesley Ceballos, DMD [address] [place] [address] Social History Tobacco Use Types Packs/Day Years [...] problems with any of the following? Mold;Lead [place] or Pipes;Water leaks 05/03/2023 Food Insecurity Answer [...] Description 02/11/2025 9:00 AM EST Office Visit [facility] MED & PED[facility] [address] [place] [address] Susi Bolton MD [address] [place] [address] documented as of this encounter Visit Diagnoses Not on filedocumented in this encounter Additional Health Concerns Assessment Noted Time PHQ-9 Depression Total Score: 2 04/11/19 24 2:02 PM EST documented as of this encounter Care Teams It Application Architect Relationship Specialty Start Date End Date Susi Bolton MD [address] [place] [address] PCP - General Family Medicine 07/29/21 documented as of this encounter
--- OUTSIDE RECORDS SUMMARY | 2025-01-26 11:39 | XMS_ITS | Encounter Summary ---
Author Organization [employer] Address [address] 7[address] [place] [address] Care Team Providers Care Enrober Name Role Phone Susi Bolton MD Primary Care Provider [phone] Reason for Visit * Reason Comments Med Refill Encounter Details Date Type Department Care Team ([facility] Contact Info) Description 10/23/2023 Refill [facility]ED[facility] [address] [place] [address] Susi Bolton MD [address] [place] [address] Social History Tobacco Use Types Packs/Day Years [...] problems with any of the following? Mold;Lead [place] or Pipes;Water leaks 05/03/2023 Food Insecurity Answer [...] Description 02/11/2025 9:00 AM EST Office Visit [facility] [address] [place] [address] Susi Bolton MD [address] [place] [address] documented as of this encounter Visit Diagnoses Not on filedocumented in this encounter Additional Health Concerns Assessment Noted Time PHQ-9 Depression Total Score: 2 04/11/19 24 2:02 PM EST documented as of this encounter Care Teams Enrober Relationship Specialty Start Date End Date Susi Bolton MD [address] [place] [phone] PCP - General Family Medicine 07/29/21 documented as of this encounter
--- OUTSIDE RECORDS SUMMARY | 2025-01-26 11:39 | XMS_ITS | Encounter Summary ---
Author Organization [employer] Address [address] [facility] 7 [place] [address] Care Team Providers Care Oracle Forms Developer Name Role Phone Susi Bolton MD Primary Care Provider [phone] Reason for Visit * Reason Comments Med Refill Encounter Details Date Type Department Care Team ([facility] Contact Info) Description 05/09/2024 Refill [facility]ED[facility] [address] [place] [address] Pavel Scott MD [address] [place] [address] Social History Tobacco Use Types Packs/Day Years [...] problems with any of the following? Mold;Lead [place] or Pipes;Water leaks 05/03/2023 Food Insecurity Answer [...] Description 02/11/2025 9:00 AM EST Office Visit [facility] MED & PEDS [address] [place] [address] Susi Bolton MD [address] [place] [address] documented as of this encounter Visit Diagnoses Not on filedocumented in this encounter Additional Health Concerns Assessment Noted Time PHQ-9 Depression Total Score: 2 04/11/19 24 2:02 PM EST documented as of this encounter Care Teams Oracle Forms Developer Relationship Specialty Start Date End Date Susi Bolton MD [address] [place] [address] PCP - General Family Medicine 07/29/21 documented as of this encounter
--- OUTSIDE RECORDS SUMMARY | 2025-01-26 11:39 | XMS_ITS | Encounter Summary ---
Author Organization [employer] Address [address] [place] [address] 7t [place] [address] Care Team Providers Care Broadband Engineer Name Role Phone Susi Bolton MD Primary Care Provider [phone] Encounter Details Date Type Department Care Team (Late Contact Info) Description 12/07/2022 [facility] Information Management [address] [place], [place] [phone] Susi Bolton MD [address] [place], [place] [phone] Social History Tobacco Use Types Packs/Day Years [...] Encounters Date Type Department Care Team (Late Contact Info) Description 02/11/2025 9:00 AM EST Office Visit [facility] & PEDS [address] [place], [place] [phone] Susi Bolton MD [address] [place], [place] [phone] documented as of this encounter Visit Diagnoses Not on filedocumented in this encounter Care Teams Broadband Engineer Relationship Specialty Start Date End Date Susi Bolton MD [address] [place] [address] PCP - General Family Medicine 07/29/21 documented as of this encounter
--- OUTSIDE RECORDS SUMMARY | 2025-01-26 11:39 | XMS_ITS | Encounter Summary ---
Author Organization [employer] Address [address] 7[address] [place] [address] Care Team Providers Care Differential Repairer Name Role Phone Susi Bolton MD Primary Care Provider [phone] Reason for Visit * Reason Comments Med Refill Encounter Details Date Type Department Care Team ([facility] st Contact Info) Description 12/25/2023 Refill [facility] ADULT DENTAL [address] [place], [place] [phone] Wesley Ceballos, DMD [address] [place] [address] Social History Tobacco Use Types [...] problems with any of the following? Mold;Lead [place] or Pipes;Water leaks 05/03/2023 Food Insecurity Answer [...] Description 02/11/2025 9:00 AM EST Office Visit [facility] MED & PEDS [address] [place] [address] Susi Bolton MD [address] [place] [address] documented as of this encounter Visit Diagnoses Not on filedocumented in this encounter Additional Health Concerns Assessment Noted Time PHQ-9 Depression Total Score: 2 04/11/19 24 2:02 PM EST documented as of this encounter Care Teams Differential Repairer Relationship Specialty Start Date End Date Susi Bolton MD [address] [place] [address] PCP - General Family Medicine 07/29/21 documented as of this encounter
--- OUTSIDE RECORDS SUMMARY | 2025-01-26 11:39 | XMS_ITS | Encounter Summary ---
Author Organization [employer] Address [address] [place] [address] Care Team Providers Care Professor Of Poultry Science Name Role Phone Susi Bolton MD Primary Care Provider [phone] Encounter Details Date Type Department Care Team (Late st Contact Info) Description 01/26/2025 Orders Only GENERIC EXTERNAL DATA [...] is your housing situation today? I have samdarryl resendiz 06/05/[address] you [...] Description 02/11/2025 9:00 AM EST Office Visit [facility] MED & PEDS [address] [place] [address] Susi Bolton MD [address] [place] [address] documented as of this encounter Procedures Procedure Name Priority Date/Time Associated Diagnosis Comments XR CHEST 2 VIEWS Routine 01/26/2025 10:5 9 AM EST CBC WITH AUTO DIFFERENTIAL Routine 01/26/2025 10:24 AM EST HEMOGLOBIN A1C Routine 01/26/2025 10:24 AM EST documented in this encounter Results * XR Chest 2 Views (01/26/2025 10:59 AM EST) Anatomical Region Laterality Modality Chest Radiographic [place] ging 01/26/2025 10:5 9 AM EST Narrative 01/26/2025 11:26 AM EST [address] [address] XRay Report Signed Patient: Cristiane Galvan MR#: [id number] : 1980 Acct:[id number] Age/Sex: 44 / F ADM Date: 01/26/25 Loc: HO.XRAY Attending Dr: Ephraim Do MD Ordering Physician: Ephraim Do MD Date of Service: 01/26/25 Procedure(s): XR chest 2V Accession Number(s): [id number] cc: Ephraim Do MD; Susi Bolton MD [...] 01/26/25 1123 DD/ 1059 TD/TT: 01/26/25 1109 Gold Plater: Procedure Note Donotuseinterpreter, Image - 01/26/2025 [place] [address] XRay Report Signed Patient: Cristiane Galvan MR#: [id number] : 1980Acct:[id number] Age/Sex: 44 / FADM Date: 01/26/25 Loc: RENE Attending Dr: Ephraim Do MD Ordering Physician: Ephraim Do MD Date of Service: 01/26/25 Procedure(s): XR chest 2V Accession Number(s): [id number] cc: Ephraim Do MD; Susi Bolton MD [...] Oscar Duff MD 01/26/2025 11:23 AM EST RP Dictated By: Oscar Spaulding MD Signed By: <Electronically signed by Oscar Thomas MDin OV> 01/26/25 1123 DD/ 1059 TD/TT: 01/26/25 1109 Gold Plater: [facility] External Provider IMG XR PROCEDURES Edited Result - Final * Hemoglobin A1c (01/26/2025 10:24 AM EST) Hemoglobin A1c 5.5 <6.0 % [facility] Comment:Hemoglobin A1C Refer ence Range Adults: 4.8 - 6.0 % Non diabetic: < 6.0 % Goal: < 7.0 %Additional Action Suggested: > 8.0 %Note: Hemoglobin A1c results are invalid for patients with abnormal amounts of HbF. Blood transfusions may impact the HbA1c concentration in the patient sample. Estimated Average Glucose 111 mg/dL [facility] Comment:eAG = Estimated ave rage glucose which is %A1C expressed asaverage glucose, using the formula of the T6J-XlobiwtSujhpnq Glucose study (ADAG), Diabetes Care, Vol.31,#8,Oct. 2007 01/26/2025 10:2 4 AM EST 01/26/2025 10:24 AM EST Generic External Data Provider LAB BLOOD ORDERAB LES Final Result [facility] [address] [place] [phone] * (ABNORMAL) CBC auto differential (01/26/2025 10:24 AM EST) White Blood Count 6.9 4.8 - 10.8 X10*3/uL [facility] Red Blood Count 3.93(L) 4.20 - 5.50 X10*6/uL [facility] Hemoglobin 11.8(L) 12.0 - 16.0 g/dl [facility] Hematocrit 36.6(L) 37.0 - 47.0 % [facility] Mean Corpuscular Volume 93.1 80.0 - 98.0 fL [facility] Mean Corpuscular Hemoglobin 30.0 27.0 - 33.0 pg [facility] Mean Corpuscular HGB Conc 32.2 31.0 - 35.0 g/dl [facility] Red Cell Distribution Width 13.0 11.0 - 16.0 % [facility] Platelet Count 223 160 - 400 X10*3/uL [facility] Mean Platelet Volume 10.4 9.4 - 12.3 fL [facility] Neutrophils Percent Auto 65.7 45 - 73 % [facility] Imm Gran Pct Auto 0.1 0.0 - 0.4 % [facility] Lymphocytes Percent Auto 26.1 20 - 40 % [facility] Monocytes Percent Auto 6.1 2 - 11 % [facility] Eosinophils Percent Auto 1.4 0 - 4 % [facility] Basophils Percent Auto 0.6 0 - 2 % [facility] NRBC Pct Auto 0.0 0.0 - 0.2 /100WBC [facility] Neutrophils Absolute Auto 4.6 2.0 - 8.3 x10*3/uL [facility] Imm Gran Abs Auto 0.01 0.00 - 0.03 X10*3/uL [facility] Lymphocytes Absolute Auto 1.8 1.2 - 4.9 X10*3/uL [facility] Monocytes Absolute Auto 0.4 0.1 - 1.2 X10*3/uL [facility] Eosinophils Absolute Auto 0.1 0.0 - 0.4 X10*3/uL [facility] Basophils Absolute Auto 0.0 0.0 - 0.2 X10*3/uL [facility] NRBC Abs Auto 0.000 0.0 - 0.012 X10*3/uL [facility] 01/26/2025 10:2 4 AM EST 01/26/2025 10:24 AM EST us Generic External Data Provider LAB BLOOD ORDERAB LES Final Result Performing Organization Address City/State/[facility] Co de Phone Number [facility] [address] [place] [address] [phone] documented in this encounter Visit Diagnoses Not on filedocumented in this encounter Additional Health Concerns Assessment Noted Time PHQ-9 Depression Total Score: 9 08/19/19 25 9:33 AM EDT documented as of this encounter Care Teams Professor Of Poultry Science Relationship Specialty Start Date End Date Susi Bolton MD [address] [place] [address] PCP - General Family Medicine 07/29/21 documented as of this encounter
--- OUTSIDE RECORDS SUMMARY | 2025-01-26 11:39 | XMS_ITS | Encounter Summary ---
Author Organization [email or web address] Address [address] [facility] 7t [place] [address] Care Team Providers Care Television News Reporter Name Role Phone Susi Bolton MD Primary Care Provider [phone] Encounter Details Date Type Department Care Team ([facility] Contact Info) Description 05/09/2024 Orders Only [facility] MED & PEDS [address] [place], [place] [phone] Nusrat Alvarez MD [address] [place], [place] [phone] Social History Tobacco Use Types Packs/Day Years [...] with any of the following? Mold;Lead [place] or Pipes;Water leaks 05/03/2023 Food Insecurity Answer [...] Description 02/11/2025 9:00 AM EST Office Visit [facility] MED & PEDS [address] [place] [address] Susi Bolton MD [address] [place] [address] documented as of this encounter Visit Diagnoses Not on filedocumented in this encounter Additional Health Concerns Assessment Noted Time PHQ-9 Depression Total Score: 2 04/11/19 24 2:02 PM EST documented as of this encounter Care Teams Television News Reporter Relationship Specialty Start Date End Date Susi Bolton MD [address] [place] [address] PCP - General Family Medicine 07/29/21 documented as of this encounter
[2025-01-26 11:45] LABS: Alanine Aminotransferase 8 U/L (0-31); Albumin Level 3.9 g/dL (3.5-5.0); Alkaline Phosphatase 75 U/L (39-117); Anion Gap 10 (12-20); Aspartate Amino Transferase 15 U/L (5-31); Blood Urea Nitrogen 10 mg/dL (9-16); Calcium 8.9 mg/dL (8.4-10.2); Carbon Dioxide 25 mmol/L (22-29); Chloride 108 mmol/L (96-108); Cholesterol 188 mg/dL (<200); Estimated Glomerular Filt Rate > 60; HDL Cholesterol 59 mg/dL (>40); Iron 87 mcg/dL (30-160); Percent Iron Saturation 35 % (15-50); Potassium 3.9 mmol/L (3.3-5.1); Sodium 139 mmol/L (135-145); Total Iron Binding Capacity 250 mcg/dL (228-428); Total Protein 7.2 g/dL (6.5-8.0); Triglycerides 93 mg/dL (<150); Unsaturated Iron Binding 163 ug/dL
[2025-01-26 12:11] LABS: Folate 8.5 ng/mL (> or = 4.0); Vitamin B12 196 pg/mL (200-900)
[2025-01-26 12:22] LABS: Ferritin 36 ng/mL (10-250)
== END 2025-01-26 08:58 | disposition home or self-care (01) ==
LOC: HO.XRAY 08:57
PROVIDERS: PCP Family Medicine; Visit Provider Surgery
DX: E66.01 Morbid (severe) obesity due to excess calories (principal); Z68.42 Body mass index [BMI] 45.0-49.9, adult
CPT/HCPCS: 36415; 71046; 80053; 80061; 82306; 82607; 82728; 82746; 83036; 83525; 83540; 84425; 84443; 84590; 84630; 85025; 86140; 93005

== ENCOUNTER → 2025-01-26 10:25 | Outpatient (BNV) | payer MEDICAID, SELFPAY | PROVIDERS: PCP Family Medicine; Visit Provider Internal Medicine Cardiovascular Disease | DX: I45.10 Unspecified right bundle-branch block (principal) | CPT/HCPCS: 93010 ==

== ENCOUNTER → 2025-01-26 10:37 | Outpatient (BNV) | payer MEDICAID, SELFPAY | PROVIDERS: PCP Family Medicine; Visit Provider Radiology Diagnostic Radiology | DX: E66.01 Morbid (severe) obesity due to excess calories (principal); Z68.41 Body mass index [BMI] 40.0-44.9, adult | CPT/HCPCS: 71046 ==